=== PATIENT | female | born 1985 | race Caucasian/White ===

== ENCOUNTER 2023-04-03 13:28 | Outpatient (AMB) | payer MEDICAID, SELFPAY ==
--- NOTE | 2023-04-03 13:36 | MHC.OFFVIS ---
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 Accompanied by: Spouse Allergies aspirin Allergy (Severe, Verified 04/03/23 13:41) Hives Medication List - Last Reconciled 04/03/23 by Daniella Castillo MD albuterol sulfate 90 mcg/actuation (Ventolin HFA) 2 puffs inhalation Q4H albuterol sulfate 2.5 mg inhalation Q4H PRN amlodipine 5 mg PO DAILY azelastine 2 sprays intranasal BID enalapril maleate 20 mg PO DAILY ergocalciferol (vitamin D2) 1,250 mcg PO QWEEK fexofenadine (Allergy Relief (fexofenadine)) 0 mg PO fluticasone propion-salmeterol 230-21 mcg/actuation (Advair HFA) 2 puffs inhalation ibuprofen 600 mg PO TID lorazepam 0.5 mg PO DAILY PRN meloxicam 15 mg PO DAILY montelukast 10 mg PO DAILY HPI HPI Comments History of Present Illness Details This is a 37-year-old female who presents for evaluation of a positive RU. For the last 6-8 months patient has been having symptoms of generalized weakness, muscle pain, fatigue. She has difficulty falling in sling asleep. She mentions that she had a sleep study years ago and she was found to have restless leg syndrome. Patient is unaware of any family history of autoimmune rheumatic disease. Denies any history of DVT/PE. Denies any blood or froth in urine. No mouth ulcers. Intermittently she will get rashes on her arms in the sun. [facility] Medical History (Updated 04/03/23 @ 14:15 by Daniella Castillo MD) Abnormal TSH RU positive Asthma Fatigue Generalized muscle ache Hypertension Pain in joint, multiple sites Surgical History No history of previous surgery Family History Mother Arthritis Father Arthritis Other Medical history unknown Social History Household Members: Spouse and Children Alcohol intake: former Patient Tobacco Use Status: Never used Tobacco Current occupational status: employed Current occupation: Teacher at [employer] Female Reproductive History Menstrual Total pregnancies: 2 Full term: 2 Review of Systems Const Reports fatigue, Reports weakness and Reports weight gain ENT Reports dry mouth Resp Reports cough and Reports wheezing Reports vaginal dryness Musc Reports arthralgias and Reports muscle weakness Skin/Breast Reports alopecia, Reports rash and Reports unusual bruising Neuro Reports weakness Psych Reports abnormal sleep pattern and Reports anxiety Endo Reports fatigue and Reports polydipsia Aller/Immun Reports wheezing Physical Exam Vital Signs: Last Vital Signs Temp 97.4 F 04/03/23 13:37 Pulse 95 04/03/23 13:37 BP 150/104 H 04/03/23 13:37 Pulse Ox 100 04/03/23 13:37 Oxygen Delivery Method Room Air 04/03/23 13:37 BMI result Body Mass Index 27.5 Const General: cooperative, healthy appearing and comfortable Nutritional Appearance: overweight Orientation/consciousness: patient oriented x3 Limitations: no limitations HEENT Head: Yes normocephalic and Yes atraumatic Mouth: moist mucous membranes Resp Effort & Inspection: normal respiratory effort and able to speak in complete sentences Auscultation: clear to auscultation bilaterally Cardio Rate: regular rate Rhythm: regular rhythm Skin General skin exam: no rashes or lesions noted Neuro General: patient oriented x3 Extrem Other: No active synovitis. Diffuse fibromyalgia tender points Normal nailfold capillaroscopy Results Reviewed Results Reviewed: Labs 01/08 RU 1-80 dense fine speckled 1-40 cytoplasmic Assessment & Plan Assessment & Plan (1) RU positive: Code(s): R76.8 - Other specified abnormal immunological findings in serum Plan: This is a 37-year-old female who presents for evaluation of diffuse muscle pain, fatigue. Labs showed a positive RU. Patient has no symptoms suggestive of an autoimmune rheumatic disease upon my evaluation today. Clinical picture consistent with fibromyalgia (2) Fibromyalgia, primary: Code(s): M79.7 - Fibromyalgia Plan: ?Discussed management of fibromyalgia with patient. Is a noninflammatory, non-autoimmune central afferent processing disorder leading to a diffuse pain syndrome.? I suggested that patient try to address her underlying psychiatric issues, anxiety/depression/OCD.? I suggested evaluation by a therapist and/or a psychiatrist.? Consider a referral to a sleep study from her PCP.? Try to follow sleep hygiene practices.? ? Patient would benefit from increased physical activity. Patient goes to the gym and walks on the treadmill twice a week. Advised adding other forms of low-impact exercise such as swimming, aquatherapy, stretching, yoga. Patient states that she does not believe she has time to see a psychotherapist and believes that it will be very long before she can see a psychiatrist. She would like to try a medication for fibromyalgia. Start duloxetine 30 mg nightly and then 60 mg nightly. Follow-up in 3 months Medications: New duloxetine (Cymbalta) Take 1 capsule nightly for 1 week then 2 capsules nightly 60 caps 2RF Coding Level of Care Code New Pt Level 3 (03496) Diagnoses RU positive R76.8 Fibromyalgia, primary M79.7
[2023-04-03 13:37] VITALS: BP 150/104; PULSE 95; TEMP 36.3; O2SAT 100; BMI 27.5
== END 2023-04-03 14:13 | disposition home or self-care (01) ==
PROVIDERS: PCP Internal Medicine; Visit Provider Student in an Organized Health Care Education/Training Program
DX: R76.8 Other specified abnormal immunological findings in serum (principal); M79.7 Fibromyalgia
CPT/HCPCS: 99203

== ENCOUNTER → 2023-04-03 13:28 | Outpatient (BNVA) | payer MEDICAID, SELFPAY | PROVIDERS: PCP Internal Medicine; Visit Provider Student in an Organized Health Care Education/Training Program | DX: R76.8 Other specified abnormal immunological findings in serum (principal); M79.7 Fibromyalgia | CPT/HCPCS: 99202 ==

== ENCOUNTER 2023-08-14 15:44 | Outpatient (AMB) | payer MEDICAID, SELFPAY ==
--- NOTE | 2023-08-14 15:44 | MHC.OFFVIS ---
Intake Vital Signs 08/14/23 15:50 Height 5 ft 3 in Weight 154 lb 15.759 oz BMI 27.5 BP 130/82 Blood Pressure Location Rt brachial Position Sitting Pulse 84 Pulse Source Pulse Oximeter Temp 97 F Temp Source Skin Pulse Oximetry (%) 99 Oxygen Delivery Method Room Air Intake Visit Reasons: FMS Intake Note: Pt last seen 04/03/23 presents today for follow up. Requesting cymbalta refill. Allergies aspirin Allergy (Severe, Verified 08/14/23 15:51) Hives Medication List - Last Reconciled 08/14/23 by Daniella Castillo MD albuterol sulfate 90 mcg/actuation (Ventolin HFA) 2 puffs inhalation Q4H albuterol sulfate 2.5 mg inhalation Q4H PRN amlodipine 5 mg PO DAILY azelastine 2 sprays intranasal BID duloxetine (Cymbalta) 30 mg PO DAILY enalapril maleate 20 mg PO DAILY ergocalciferol (vitamin D2) 1,250 mcg PO QWEEK fexofenadine (Allergy Relief (fexofenadine)) 0 mg PO fluticasone propion-salmeterol 230-21 mcg/actuation (Advair HFA) 2 puffs inhalation gabapentin 300 mg PO BEDTIME ibuprofen 600 mg PO TID lorazepam 0.5 mg PO DAILY PRN meloxicam 15 mg PO DAILY montelukast 10 mg PO DAILY HPI HPI Comments History of Present Illness Details 37-year-old female with fibromyalgia returns for follow-up. She started taking duloxetine. She states that she takes it in the morning as it causes anxiety when she takes it at night. She takes 1 tab daily. She was evaluated by her PCP and gabapentin was added bedtime. She does not know the exact dose. She states that generalized pain is about 80% better overall. Initial history: This is a 37-year-old female who presents for evaluation of a positive RU. For the last 6-8 months patient has been having symptoms of generalized weakness, muscle pain, fatigue. She has difficulty falling in sling asleep. She mentions that she had a sleep study years ago and she was found to have restless leg syndrome. Patient is unaware of any family history of autoimmune rheumatic disease. Denies any history of DVT/PE. Denies any blood or froth in urine. No mouth ulcers. Intermittently she will get rashes on her arms in the sun. 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 of Systems Const Reports fatigue and Reports weakness Musc Reports arthralgias and Reports muscle weakness Neuro Reports weakness Endo Reports fatigue Physical Exam Const General: cooperative, healthy appearing and comfortable Nutritional Appearance: overweight Orientation/consciousness: patient oriented x3 Limitations: no limitations HEENT Head: Yes normocephalic and Yes atraumatic Resp Effort & Inspection: normal respiratory effort and able to speak in complete sentences Auscultation: clear to auscultation bilaterally Cardio Rate: regular rate Rhythm: regular rhythm Skin General skin exam: no rashes or lesions noted Neuro General: patient oriented x3 Extrem Other: No active synovitis. Diffuse fibromyalgia tender points Normal nailfold capillaroscopy Results Reviewed Results Reviewed: Labs 01/08 RU 1-80 dense fine speckled 1-40 cytoplasmic Assessment & Plan Assessment & Plan (1) Fibromyalgia, primary: Code(s): M79.7 - Fibromyalgia Plan: Fibromyalgia better controlled on duloxetine 30 mg daily and gabapentin nightly. I explained to patient that she does not need to follow-up regularly with me. Follow-up with PCP Plan I spent 15 minutes reviewing patient's chart, evaluating patient, counseling patient and documenting in the chart Medications: Changed From duloxetine (Cymbalta) Take 1 capsule nightly for 1 week then 2 capsules nightly 60 caps 2RF To duloxetine (Cymbalta) 30 mg PO DAILY Coding Level of Care Code Est Pt Level 3 (81625) Diagnoses Fibromyalgia, primary M79.7
[2023-08-14 15:50] VITALS: BP 130/82; PULSE 84; TEMP 36.1; O2SAT 99; BMI 27.5
== END 2023-08-14 15:55 | disposition home or self-care (01) ==
PROVIDERS: PCP Internal Medicine; Visit Provider Student in an Organized Health Care Education/Training Program
DX: M79.7 Fibromyalgia (principal)
CPT/HCPCS: 99213

== ENCOUNTER → 2023-08-14 15:44 | Outpatient (BNVA) | payer MEDICAID, SELFPAY | PROVIDERS: PCP Internal Medicine; Visit Provider Student in an Organized Health Care Education/Training Program ==

== ENCOUNTER 2023-09-19 14:52 | Outpatient (REF) | payer MEDICAID, SELFPAY ==
[2023-09-19 18:12] LABS: Anion Gap 12 (12-20); Blood Urea Nitrogen 13 mg/dL (9-16); Calcium 9.9 mg/dL (8.4-10.2); Carbon Dioxide 31 mmol/L (22-29); Chloride 95 mmol/L (96-108); Estimated Glomerular Filt Rate > 60; Glucose Random 99 mg/dL (60-115); Sodium 136 mmol/L (135-145)
[2023-09-19 19:49] LABS: Potassium 2.4 mmol/L (3.3-5.1)
== END 2023-09-19 14:53 | disposition home or self-care (01) ==
LOC: HO.CHCLDS 14:52
PROVIDERS: Visit Provider Internal Medicine
DX: I10 Essential (primary) hypertension (principal)
CPT/HCPCS: 36415; 80048

== ENCOUNTER 2023-09-24 08:02 | Outpatient (REF) | payer MEDICAID, SELFPAY ==
[2023-09-24 11:55] LABS: Anion Gap 13 (12-20); Blood Urea Nitrogen 15 mg/dL (9-16); Calcium 9.5 mg/dL (8.4-10.2); Carbon Dioxide 28 mmol/L (22-29); Chloride 102 mmol/L (96-108); Estimated Glomerular Filt Rate > 60; Glucose Random 150 mg/dL (60-115); Potassium 3.8 mmol/L (3.3-5.1); Sodium 139 mmol/L (135-145)
== END 2023-09-24 08:03 | disposition home or self-care (01) ==
LOC: HO.HHCL 08:02
PROVIDERS: Visit Provider Internal Medicine
DX: E87.6 Hypokalemia (principal)
CPT/HCPCS: 36415; 80048

== ENCOUNTER 2023-12-10 16:08 | Outpatient (REF) | payer MEDICAID, SELFPAY ==
[2023-12-16 08:38] LABS: Creatinine Random Urine 126 mg/dL (20-275); Metanephrine, Free Rand Ur 81 mcg/g cr (32-134); Normetanephrine, Free Rand Ur 294 mcg/g cr (67-390); Total Metanephrine, Free RU 375 mcg/g cr (94-445)
[2023-12-18 16:19] LABS: Aldosterone/Renin Ratio 1.3 Ratio (0.9-28.9); Plasma Renin Activity 6.32 ng/mL/h (0.25-5.82)
== END 2023-12-10 16:09 | disposition home or self-care (01) ==
LOC: HO.CHCLDS 16:08
PROVIDERS: Visit Provider Internal Medicine
DX: I1A.0 Resistant hypertension (principal)
CPT/HCPCS: 36415; 82088; 83835

== ENCOUNTER 2024-08-17 11:44 | Outpatient (REF) | payer MEDICAID, SELFPAY ==
--- NOTE | ~2024-08-17 | XR_ITS ---
EXAMINATION: XR CHEST CLINICAL INFORMATION: Cough x 3 weeks. COMPARISON: None available. TECHNIQUE: 2 views of the chest were obtained. FINDINGS: No significant abnormality is noted involving the heart, lungs, mediastinum, bony thorax or soft tissues. XR/XR chest 2V IMPRESSION: Unremarkable chest examination. Electronically signed by: Darien Bee MD 08/17/2024 12:17 PM [facility]
== END 2024-08-17 11:45 | disposition home or self-care (01) ==
LOC: HO.HHCX 11:44
PROVIDERS: Visit Provider Internal Medicine
DX: R06.02 Shortness of breath (principal); J45.901 Unspecified asthma with (acute) exacerbation
CPT/HCPCS: 71046

== ENCOUNTER → 2024-08-17 11:44 | Outpatient (BNV) | payer MEDICAID, SELFPAY | PROVIDERS: Visit Provider Radiology Diagnostic Radiology | DX: R05.9 Cough, unspecified (principal) | CPT/HCPCS: 71046 ==

== ENCOUNTER 2024-10-06 09:57 | Outpatient (REF) | payer MEDICAID, SELFPAY ==
--- OUTSIDE RECORDS SUMMARY | 2024-10-06 10:44 | XMS_ITS | Encounter Summary ---
Author Organization [employer] Address [address] [place] [address] Care Team Providers Care Experimental Pl[employer] Fabricator Name Role Phone Irene Grubbs MD Primary Care Provider [phone] Reason for Visit * Reason Onset Date Comments Med Refill 05/29/2024 Encounter Details Date Type Department Care Team (Late st Contact Info) Description 05/29/2024 Telephone [facility] [address] [place] [address] Irene Grubbs MD [address] [place] [address] Med Refill Social History Tobacco Use Types Packs/Day Years Used Date Smoking Tobacco: Never Smokeless Tobacco: Never Depression Answer Date Recorded Patient Health Questionnaire-9 Score 10 05/28/2024 Patient Health Questionnaire-9 Score 10 05/28/2024 Last PHQ-9: Questionnaire Data Not on file 1 Housing Stability Answer Date Recorded What is your housing situation today? I have cristi obrien 06/06/[address] you li ve. Do you have problems with any of the following? None of the above 06/06/2023 Food Insecurity Answer Date Recorded Within the past 12 months, y ou worried that your food would run out before you got money to buy more: Never True 06/06/2023 Within the past 12 months,th e food you bought just didn't last and you didn't have enough money to get more: Never True Transportation Answer Date Recorded In the past 12 months, has l ack of transportation kept you from medical appts, meetings, work or from getting things needed for daily living? No 06/06/2023 Utilities Answer Date Recorded In the past 12 months, has t he electric, gas, oil or water company threatened to shut off services in your home? No 06/06/2023 Depression Answer Date Recorded Patient Health Questionnaire-2 Score 4 05/28/2024 Comments Unknown Sex and Gender Information Value Date Recorded Sex Assigned at Female 06/18/2022 10:23 AM EDT Legal Sex Female 10:23 AM EDT Gender Identity Female 06/18/2022 10:23 AM EDT Sexual Orientation Straight 06/18/2022 10 :23 AM EDT documented as of this encounter Miscellaneous Notes * Telephone Encounter - Angel Campos - 05/29/2024 10:25 AM EDT TC from pt requesting medication refill. Medications needing refill : LORazepam (Ativan) 0.5 MG tablet To be sent to: [facility] Pt needs meds sent belle . States will run out this weekend and pharmacy requesting a new script documented in this encounter Plan of Treatment Upcoming Encounters Date Type Department Care Team (Late st Contact Info) Description 10/07/2024 10:00 AM EST Office Visit [facility] OPTOM[facility] [address] [place] [address] Philip, Destiny, OD [address] [place] [address] documented as of this encounter Visit Diagnoses Not on filedocumented in this encounter Additional Health Concerns Assessment Noted Time PHQ-9 Depression Total Score: 10 024 3:48 PM EDT documented as of this encounter Care Teams [employer] Fab[employer]ator Relationship Specialty Start Date End Date Irene Grubbs MD [address] [place] [address] PCP - General Internal Medicine 07/02/19 documented as of this encounter
--- OUTSIDE RECORDS SUMMARY | 2024-10-06 10:44 | XMS_ITS | Clinical Summary ---
Author Organization [employer] Address [address] [facility] [address] [place] [address] Care Team Providers Care Hosting Engineer Name Role Phone Irene Grubbs MD Primary Care Provider [phone] Allergies Active Allergy Reactions Criticality Noted Date Comments Aspirin 12/09/2020 Sulfamethoxazole Unknown 07/30/2022 Trimethoprim Unknown 07/30/2022 Medications * This document contains information received from the source organization and may not represent a complete record from that organization. fluticasone-salm eterol (Advair) 230-21 MCG/ACT inhalerIndicatio ns:Moderate persistent asthma without complication Inhale 2 puffs in the morning and at bedtime. Rinse mouth with water after use to reduce aftertaste and incidence of candidiasis. Do not swallow. 12 g 11 023 Active valACYclovir (Valtrex) 500 MG tablet 022 Active chlorthalidone (Hygroton) 25 MG tabletIndication s:Primary hypertension Take 1 tablet (25 mg) by mouth in the morning. 30 tablet 024 Active Mometasone Furoate (Asmanex HFA) 200 MCG/ACT aerosol Inhale 2 puffs every 12 (twelve) hours. 13 g 3 024 Active atenolol (Tenormin) 50 MG tabletIndication s:Primary hypertension Take 1 tablet (50 mg) by mouth Once per day. 30 tablet 024 2024 Active verapamil SR (Calan SR) 240 MG ER tabletIndication s:Primary hypertension,Gypsy marilia hypertension Take 1 tablet (240 mg) by mouth at bedtime. Do not crush or chew. 30 tablet 11 024 2024 Active guaiFENesin (Mucinex) 600 MG 12 hr tabletIndication s:Nasal congestion Take 2 tablets (1,200 mg) by mouth 2 times daily. Do not crush, chew, or split. 120 tablet 11 024 2024 Active cholecalciferol (Vitamin D-3) 50 MCG (2000 UT) capsuleIndicatio ns:Low vitamin D level 1 capsule a day 30 capsule 11 Active fexofenadine (Allergy Relief) 180 MG tabletIndication s:Seasonal allergies TAKE 1 TABLET(180 MG) BY MOUTH IN THE MORNING 30 tablet 5 Active cyclobenzaprine (Flexeril) 10 MG tabletIndication s:Fibromyalgia Take 1 tablet (10 mg) by mouth at bedtime. 30 tablet 3 2024 Active Diclofenac Sodium 1 % gelIndications:L eft lateral epicondylitis To apply to the affected area 3 times a day 100 g Active busPIRone (Buspar) 5 MG tabletIndication s:Anxiety Take 1 tablet (5 mg) by mouth 2 times daily. 60 tablet 11 2024 Active azithromycin (Zithromax) 250 MG tabletIndication s:Asthma with acute exacerbation, unspecified asthma severity, unspecified whether persistent Day 1: 500 mg. Day 2-5: 250 mg 6 tablet Active albuterol (2.5 MG/3ML) 0.083% nebulizer solutionIndicati ons:Shortness of breath,Asthma with acute exacerbation, unspecified asthma severity, unspecified whether persistent,Other asthma Take 3 mL by nebulization every 4 (four) hours if needed for wheezing. 75 mL 2 Active fluconazole (Diflucan) 150 MG tablet TAKE 1 TABLET(150 MG) BY MOUTH 1 TIME FOR 1 DOSE 1 tablet Active EPINEPHrine (Epipen) 0.3 MG/0.3ML injection syringeIndicatio ns:Seasonal allergies INJECT 1 DEVICE INTO THE MUSCLE DIRECTED 1 TIME FOR 1 DOSE 2 each Active Ventolin HFA 108 (90 Base) MCG/ACT inhalerIndicatio ns:Other asthma INHALE 2 PUFFS BY MOUTH 4-6 TIMES EVERY DAY NEEDED 18 g 11 025 Active montelukast (Singulair) 10 MG tablet TAKE 1 TABLET BY MOUTH DAILY 90 tablet 3 025 Active LORazepam (Ativan) 0.5 MG tabletIndication s:Anxiety Take 1 tablet (0.5 mg) by mouth if needed each day for anxiety. 30 tablet 025 2024 Active LORazepam (Ativan) 0.5 MG tabletIndication s:Anxiety Take 1 tablet (0.5 mg) by mouth if needed each day for anxiety. 30 tablet 024 2024 Discontinued(R eorder (will not trigger notification to Pharmacy)) Active Problems Problem Noted Date Diagnosed Date Synovitis and tenosynovitis of left ankle and fo ot 09/28/2024 Moderate episode of recurrent major depressive d isorder 05/28/2024 Caregiver role strain 03/10/2024 Chronic pelvic pain in female 03/10/2024 Palpitations 03/10/2024 Renal stone 03/10/2024 Restless legs 03/10/2024 Subclinical hyperthyroidism 03/05/2023 Anxiety 10/22/2022 Assessment & Plan (01/06/2024 5:35 PM EDT): Despite social stressors, she is doing well and will continue Cymbalta 20 mg daily, Gabapentin 100 mg at bedtime. May continue Lorazepam 0.5 mg once daily as needed. Since this provider will be retiring, patient is now referred back to her PCP for further medication management. Any issues or concerns, call the health center. All her questions were answered and I have wished her well. She agrees with the plan. Assessment & Plan (11/07/2023 4:32 PM EDT): She is doing well and will continue Cymbalta 20 mg daily, Gabapentin 100 mg at bedtime. May continue Lorazepam 0.5 mg once daily as needed. On 08/22/2023 provider informed the patient that I would be retiring, but we would plan for continuity of care. Meanwhile F/U with me in 2 months. She agrees with the plan. Assessment & Plan (08/22/2023 5:21 PM EST): She is doing well and will continue Cymbalta 20 mg daily, Gabapentin 100 mg at bedtime. May continue Lorazepam 0.5 mg once daily as needed. Today 08/22/2023 provider informed the patient that I would be retiring, but we would plan for continuity of care. Meanwhile F/U with me in 2 months. She agrees with the plan. Assessment & Plan (06/18/2023 1:29 PM EDT): She is very sensitive to sedating S/E of medication. Willing to try again with Cymbalta 20 mg daily. Recently diagnosed with fibromyalgia and started Gabapentin 100 mg at bedtime. May continue Lorazepam 0.5 mg once daily as needed. F/U 6-8 weeks. She agrees with the plan. Assessment & Plan (04/29/2023 12:07 PM EDT): May continue Lorazepam 0.5 mg once daily as needed. Recently diagnosed with fibromyalgia and started Gabapentin 100 mg at bedtime. Will not add anything else at this time. F/U 6-8 weeks. She agrees with the plan. Assessment & Plan (10/22/2022 5:27 PM EST): May continue Lorazepam 0.5 mg once daily as needed Perimenopausal symptoms 10/22/2022 Assessment & Plan (10/22/2022 5:29 PM EST): With mood changes including increased anxiety and Irritability as well as vasomotor symptoms. Will start Venlafaxine XR 37.5 mg once daily taken with food to minimize GI upset. Explained that she would not notice improvement immediately, so be patient and take daily. F/U 4-6 weeks. She agrees with the plan. Hypertensive disorder 07/30/2022 Asthma 07/30/2022 Allergic conjunctivitis 07/30/2022 Acute COVID-19 08/14/2021 Resolved Problems Problem Noted Date Diagnosed Date Resolved Date Mixed anxiety and depressive disorder 07/30/2022 10/22/2022 Assessment & Plan (05/13/2024 1:02 PM EDT): No suicidal/homicidal ideas, will start on fluoxetine, she was previosuly on duloxetine but she stopped taking it due to weight gain, fluoxetine has less weight gain effects, will follow up in 1 month, will also refer to therapist Encounters Date Type Department Care Team Description 09/28/2024 3:45 PM EST Office Visit [facility] [address] [place] [address] Irene Grubbs MD Enlarged thyroid (Primary Dx); Congested nose; Sore throat; Synovitis and tenosynovitis of left ankle and foot 09/28/2024 Travel 09/24/2024 Telephone [facility] [address] [place] [address] Irene Grubbs MD chart prep 09/15/2024 Telephone [facility] [address] [place] [address] Irene Grubbs MD Med Refill 09/03/2024 Refill [facility] [address] [place] [address] Irene Grubbs MD Fibromyalgia; Anxiety 09/01/2024 Refill [facility] [address] [place] [address] Jorje Farooqe, CLIENT SALES AND SERVICE OFFICER 09/01/2024 Refill [facility] [address] [place] [phone] Irene Grubbs MD Seasonal allergies; Other asthma 08/24/2024 Telephone [facility] [address] [place] [address] Irene Grubbs MD 08/17/2024 1:20 PM EST Office Visit [facility] [address] [place] [phone] Irene Grubbs MD Shortness of breath; Asthma with acute exacerbation, unspecified asthma severity, unspecified whether persistent; Other asthma 08/17/2024 Telephone [facility] [address] [place] [address] Irene Grubbs MD recall appt (Pt needs appt) from Last 3 Months Immunizations Name Administration Dates Next Due Pfizer Covid-19 Vaccine 12+ 06/23/2021, Tdap 02/01/2024,10/31/2012 Social History Tobacco Use Types Packs/Day Years Used Date Smoking Tobacco: Never Smokeless Tobacco: Never Tobacco Cessation:Counseling Given: Not Answered Depression Answer Date Recorded Patient Health Questionnaire-9 [...] Orientation Straight 06/18/2022 10 :23 AM EDT Last Filed Vital Signs Vital Sign Reading Time Taken Comments Blood Pressure 137/86 09/28/2024 4:09 PM EST Pulse 69 09/28/2024 4:09 PM EST Temperature 36.8 ??C (98.3 ??F) 09/28/2024 4:09 PM ES T Respiratory Rate 20 09/28/2024 4:09 PM EST Oxygen Saturation 97% 09/28/2024 4:09 PM EST Inhaled Oxygen Concentration - - Weight 70.3 kg (155 lb) 09/28/2024 4:09 PM EST Height 161 cm (5' 3.39 ) 09/28/2024 4:09 PM EST Body Mass Index 27.12 09/28/2024 4:09 PM EST Plan of Treatment Upcoming Encounters Date Type Department Care Team (Late st Contact Info) Description 10/07/2024 10:00 AM EST Office Visit [facility] [address] [place], [place] [phone] Philip, Destiny, OD [address] [place] [address] Health Maintenance Due Date Last Done Comments Family Planning (PISQ) 2000 Hepatitis C Screening 2003 Hepatitis B Vaccines (1 of 3 - 19+ 3-dose series) 2004 Pneumococcal Vaccine: Pediatrics (0 to 5 Years) and At-Risk Patients (6 to 49) Years) (1 of 2 - PCV) 2004 Pap Smear 2006 Cervical Cancer Screening 2015 HPV/Cotest 2015 COVID-19 Vaccine ( - 2023-2 5 season) 2024 06/23/2021, 06/02/2021 Influenza Vaccine (#1) 2024 Depression Monitoring (PHQ-9) 11/26/2024, 05/28/2024 SDOH Screening 12/22/2024 12/23/2023 Lipid Panel 04/20/2025 04/20/2020 Depression Screening 05/28/2025 05/28/2024, 05/28/2024 Alcohol/Substance Use Screening 06/10/2025 06/10/2024 Tobacco Screening 09/28/2025 09/28/2024 DTaP/Tdap/Td Vaccines (3 - T d or Tdap) 01/31/2034 02/01/2024, 10/31/2012 Zoster Vaccines (1 of 2) 2035 RSV Patients and Patients Aged 60 years or older (1 - 1-dose 75+ series) 2060 HIV Screening Completed 02/08/2021 HIB Vaccines Aged Out No longer eligi ble based on patient's age to complete this topic HPV Vaccines Aged Out No longer eligi ble based on patient's age to complete this topic Hepatitis A Vaccines Aged Out No long er eligible based on patient's age to complete this topic IPV Vaccines Aged Out No longer eligi ble based on patient's age to complete this topic Meningococcal Vaccine Aged Out No jammie olivia eligible based on patient's age to complete this topic RSV under 20 months Aged Out No longe r eligible based on patient's age to complete this topic Rotavirus Vaccines Aged Out No longer eligible based on patient's age to complete this topic Procedures Procedure Name Priority Date/Time Associated Diagnosis Comments POCT RAPID STREP A Routine 09/28/2024 4: 40 PM EST Sore throat POCT INFLUENZA A Routine 09/28/2024 4:40 PM EST Congested nose POCT INFLUENZA B Routine 09/28/2024 4:39 PM EST Congested nose POCT RAPID COVID ANTIGEN Routine 09/28/2024 4:38 PM EST Congested nose XR CHEST 2 VIEWS Routine 08/17/2024 11:4 4 AM EST Shortness of breath Asthma with acute exacerbation, unspecified asthma severity, unspecified whether persistent POCT RAPID COVID ANTIGEN Routine 08/17/2024 11:40 AM EST Shortness of breath POCT INFLUENZA B (ID NOW RAPID MOLECULAR) Routine 08/17/2024 11:40 AM EST Shortness of breath POCT INFLUENZA A (ID NOW RAPID MOLECULAR) Routine 08/17/2024 11:40 AM EST Shortness of breath HIV 1/2 ANTIGEN/ANTIBODY, FOURTH GENERATION W/RFL Routine 02/08/2021 11:38 AM EDT LIPID PANEL, STANDARD Routine 04/20/2020 11:23 AM EDT from Last 3 Months or Most Recently Relevant to Health Maintenance Results * POCT Rapid Influenza A OSOM (09/28/2024 4:40 PM EST) [facility] Rapid Influenza A Ag Negative Negative, Indeterminate QC Media Lot # [id number] Lot# Expiration Date Swab Nasopharyngeal structure / Unknown 09/28/2024 4:40 PM EST Irene Grubbs MD POINT OF CARE TEST ENTER/ED IT ORDERABLES Final Result * POCT Rapid Strep A OSOM (09/28/2024 4:40 PM EST) [facility] Rapid Strep A Screen Negative Negative, None Detected QC Media Lot # [id number] Lot# Expiration Date ,025 Swab 09/28/2024 4:40 PM EST Irene Grubbs MD POINT OF CARE TEST ENTER/ED IT ORDERABLES Final Result * POCT Rapid Influenza B OSOM (09/28/2024 4:39 PM EST) [facility] Rapid Influenza B Ag Negative Negative, Indeterminate QC Media Lot # [id number] Lot# Expiration Date Swab 09/28/2024 4:39 PM EST Irene Grubbs MD POINT OF CARE TEST ENTER/ED IT ORDERABLES Final Result * POCT Rapid Covid-19 BinaxNOW (09/28/2024 4:38 PM EST) Only the most recent of2 resultswithin the time period is included. [facility] Rapid COVID Ag Negative QC Media Lot # [id number] Lot# Expiration Date [id number] Swab 09/28/2024 4:38 PM EST us Irene Grubbs MD POINT OF CARE TEST ENTER/ED IT ORDERABLES Edited Result - Final * XR Chest 2 Views (08/17/2024 11:44 AM EST) Anatomical Region Laterality Modality Chest Radiographic Candice ging 08/17/2024 11:4 4 AM EST Narrative 08/17/2024 12:20 PM EST ?[facility] ?[address] ?[place] [address] ?XRay Report ? Signed ? Patient: Flynn,María Elena ?MR#: [id number] ?? [id number] ? : 1985 ?Acct:[id number] ? Age/Sex: 38 / F ?ADM Date: 08/17/24 ? Loc: HO.HHCX ? Attending Dr: Irene Grubbs MD ? Ordering Physician: Irene Grubbs MD ?? Date of Service: 08/17/24 ?? Procedure(s): XR chest 2V ?? Accession Number(s): [id number] ? cc: Irene Grubbs MD ? EXAMINATION: ?? XR CHEST ? CLINICAL INFORMATION: ?? Cough x 3 weeks. ? COMPARISON: ?? None available. ? TECHNIQUE: ?? 2 views of the chest were obtained. ? FINDINGS: ?? No significant abnormality is noted involving the heart, lungs, ?? mediastinum, bony thorax or soft tissues. ? XR/XR chest 2V ?? IMPRESSION: ?? Unremarkable chest examination. ? Electronically signed by: ??Darien Bee MD ??08/17/2024 12:17 PM EST RP ? Dictated By: ?Cristal,Darien S MD ? Signed By: ?<Electronically signed by Darien S Cristal, MD in OV> ?08/17/24 1217 ? DD/ 1144 ? TD/TT: 08/17/24 1150 ? Architectural Examiner: MSM ? Procedure Note Rodrigue, Image - 08/17/2024 [facility] [address] [facility] [address] XRay Report Signed Patient: PruettMaría Elena#: [id number] : 1985Acct:[id number] Age/Sex: 38 / FADM Date: 08/17/24 Loc: HO.HHCX Attending Dr: Irene Grubbs MD Ordering Physician: Irene Grubbs MD Date of Service: 08/17/24 Procedure(s): XR chest 2V Accession Number(s): [id number] cc: Irene Grubbs MD EXAMINATION: XR CHEST CLINICAL INFORMATION: Cough x 3 weeks. COMPARISON: None available. TECHNIQUE: 2 views of the chest were obtained. FINDINGS: No significant abnormality is noted involving the heart, lungs, mediastinum, bony thorax or soft tissues. XR/XR chest 2V IMPRESSION: Unremarkable chest examination. Electronically signed by: Darien Bee MD 08/17/2024 12:17 PM EST RP Dictated By: Darien Bee MD Signed By: <Electronically signed by Darien Bee MD in OV> 08/17/24 1217 DD/ 1144 TD/TT: 08/17/24 1150 Architectural Examiner: [facility] Irene Grubbs MD IMG XR PROCEDURES Final Res ult * Influenza B (ID NOW Rapid Molecular) (08/17/2024 11:40 AM EST) Influenza B Negative Negative, Indeterminate [facility] Swab 08/17/2024 11:4 0 AM EST us Irene Grubbs MD POINT OF CARE TEST ENTER/ED IT ORDERABLES Final Result [facility] [address] [place] [phone] * Influenza A (ID NOW Rapid Molecular) (08/17/2024 11:40 AM EST) Influenza A Negative Negative, Indeterminate [facility] Swab 08/17/2024 11:4 0 AM EST us Irene Grubbs MD POINT OF CARE TEST ENTER/ED IT ORDERABLES Final Result Performing Organization Address City/[facility] Co de Phone Number [facility] [address] [place] [address] [phone] * HIV 1/2 ANTIGEN/ANTIBODY,FOURTH GENERATION W/RFL (02/08/2021 11:38 AM EDT) HIV-1/2 ANTIGEN AND ANTIBODIES, 4TH GENERATION W/ REFLEX NON-REACT MICHELLE NON-REACT [facility] Comment: HIV-1 antigen and HIV-1/HIV-2 antibodies were not detected. There is no laboratory evidence of HIV infection. ?? PLEASE NOTE: This information has been disclosed to you from records whose confidentiality may be protected by state law. ??If your state requires such protection, then the state law prohibits you from making any further disclosure of the information without the specific written consent of the person to whom it pertains, or as otherwise permitted by law. A general authorization for the release of medical or other information is NOT sufficient for this purpose. ? For additional information please refer to http://education.[employer]./faq/SYY772 (This link is being provided for informational/ educational purposes only.) ? The performance of this assay has not been clinically validated in patients less than 2 years old. ?? 02/08/2021 11:3 8 AM EDT us Irene Grubbs MD LAB BLOOD ORDERABLES Final Result [facility] [address] * (ABNORMAL) LIPID PANEL, STANDARD (04/20/2020 11:23 AM EDT) Cholesterol, Total 139 <200 mg/dL [facility] LDL Cholesterol 74 mg/dL (calc) [facility] Comment: Reference range: <100 ?? Desirable range <100 mg/dL for primary prevention; ?? <70 mg/dL for patients with CHD or diabetic patients ?? with > or = 2 CHD risk factors. ?? LDL-C is now calculated using the Osmin-Lai ?? calculation, which is a validated novel method providing ?? better accuracy than the Friedewald equation in the ?? estimation of LDL-C. ?? Osmin BRANDON et al. AMOL. 2013;310(19): 1397-9922 ?? (http://Eversnap/faq/AVE324) HDL Cholesterol 41(L) > OR = 50 mg/dL [facility] Cholesterol, Total 139 <200 mg/dL [facility] Chol/HDLC Ratio 3.4 <5.0 (calc) [facility] Triglycerides 162(H) <150 mg/dL [facility] HDL Cholesterol 41(L) > OR = 50 mg/dL [facility] Non-HDL Cholesterol 98 <130 mg/dL (calc) [facility] Comment: For patients with diabetes plus 1 major ASCVD risk ?? factor, treating to a non-HDL-C goal of <100 mg/dL ?? (LDL-C of <70 mg/dL) is considered a therapeutic ?? option. Non-HDL Cholesterol 98 <130 mg/dL (calc) [facility] Comment: For patients with diabetes plus 1 major ASCVD risk ?? factor, treating to a non-HDL-C goal of <100 mg/dL ?? (LDL-C of <70 mg/dL) is considered a therapeutic ?? option. Triglycerides 162(H) <150 mg/dL [facility] Chol/HDLC Ratio 3.4 <5.0 (calc) [facility] LDL Cholesterol 74 mg/dL (calc) [facility] Comment: Reference range: <100 ?? Desirable range <100 mg/dL for primary prevention; ?? <70 mg/dL for patients with CHD or diabetic patients ?? with > or = 2 CHD risk factors. ?? LDL-C is now calculated using the Osmin-Lai ?? calculation, which is a validated novel method providing ?? better accuracy than the Friedewald equation in the ?? estimation of LDL-C. ?? Osmin BRANDON et al. AMOL. 2013;310(19): 0722-9051 ?? (http://Eversnap/faq/GXG587) 04/20/2020 11:2 3 AM EDT Irene Grubbs MD LAB BLOOD ORDERABLES Final Result [facility] [address] [place] [address], from Last 3 Months or Most Recently Relevant to Health Maintenance [facility] Care Teams Hosting Engineer Relationship Specialty Start Date End Date Irene Grubbs MD [address] [place] [phone] PCP - General Internal Medicine 07/02/19
--- OUTSIDE RECORDS SUMMARY | 2024-10-06 10:44 | XMS_ITS | Encounter Summary ---
Author Organization [employer] Address [address] [facility] [address] [place] [address] Care Team Providers Care River Pilot Name Role Phone Irene Grubbs MD Primary Care Provider [phone] Encounter Details Date Type Department Care Team ([facility] st Contact Info) Description 09/20/2023 Orders Only [facility] [address] [place], [place] [phone] Irene Grubbs MD [address] [place] [address] Hypokalemia (Primary Dx) Social History Tobacco Use Types Packs/Day Years Used Date Smoking Tobacco: Never Smokeless Tobacco: Never Depression Answer Date Recorded Patient Health Questionnaire-9 Score 8 08/22/2023 Patient Health Questionnaire-9 Score 8 08/22/2023 Last PHQ-9: Questionnaire Data Not on file 0 08/22/2023 Housing Stability Answer Date Recorded What is [...] Answer Date Recorded Patient Health Questionnaire-2 Score 1 08/22/2023 Comments Unknown Sex and Gender Information Value Date Recorded Sex Assigned at Female 06/18/2022 10:23 AM EDT Legal Sex Female 10:23 AM EDT Gender Identity Female 06/18/2022 10:23 AM EDT Sexual Orientation Straight 06/18/2022 10 :23 AM EDT documented as of this encounter Plan of Treatment Upcoming Encounters Date Type Department Care Team (Late st Contact Info) Description 10/07/2024 10:00 AM EST Office Visit [facility] [address] [place] [address] Philip, Destiny, OD [address] [place] [address] documented as of this encounter Procedures Procedure Name Priority Date/Time Associated Diagnosis Comments BASIC METABOLIC PANEL Routine 09/24/2023 8:03 AM EST Hypokalemia documented in this encounter Results * (ABNORMAL) Basic Metabolic Panel (09/24/2023 8:03 AM EST) Sodium 139 135 - 145 mmol/L [facility] Potassium 3.8 3.3 - 5.1 mmol/L [facility] Chloride 102 96 - 108 mmol/L [facility] Carbon Dioxide 28 22 - 29 mmol/L [facility] Anion Gap 13 12 - 20 [facility] Urea Nitrogen (BUN) 15 9 - 16 mg/dL [facility] Creatinine, Serum 0.73 0.5 - 1.4 mg/dL [facility] Estimated Glomerular Filt Rate >60 [facility] Comment:NOTE: For -Am erican individuals, multiply the result by 1.210.Chronic Kidney Disease: Estimated GFR < 60 mL/min/[id number] Kidney Disease: Estimated GFR < 15 mL/min/1.73m2 Glucose 150(H) 60 - 115 mg/dL [facility] Calcium 9.5 8.4 - 10.2 mg/dL [facility] Blood Venous blood specimen / Unknown 09/24/2023 8:03 AM EST 09/24/2023 11:12 AM EST Irene Grubbs MD LAB BLOOD ORDERABLES Final Result [facility] [address] [place] [address] [phone] documented in this encounter Visit Diagnoses Diagnosis Hypokalemia- Primary Hypopotassemia documented in this encounter Additional Health Concerns Assessment Noted Time PHQ-9 Depression Total Score: 8 08/22/19 24 4:08 PM EST documented as of this encounter Care Teams River Pilot Relationship Specialty Start Date End Date Irene Grubbs MD [address] [place] [phone] PCP - General Internal Medicine 07/02/19 documented as of this encounter
--- OUTSIDE RECORDS SUMMARY | 2024-10-06 10:44 | XMS_ITS | Encounter Summary ---
Author Organization [employer] Address [address] [facility] 7 [place] [address] Care Team Providers Care Passenger Car Inspector Name Role Phone Irene Grubbs MD Primary Care Provider [phone]- [phone] Reason for Visit * Reason Comments Med Refill Encounter Details Date Type Department Care Team ([facility] st Contact Info) Description 01/22/2024 Refill [facility] MED & PEDS [address] [place] [address] Irene Grubbs MD [address] [place] [address] Other asthma Social History Tobacco Use Types Packs/Day Years Used Date Smoking Tobacco: Never Smokeless Tobacco: Never Depression Answer Date Recorded Patient Health Questionnaire-9 Score 9 01/06/2024 Patient Health Questionnaire-9 Score 9 01/06/2024 Last PHQ-9: Questionnaire Data Not on file 0 01/06/2024 Housing Stability Answer Date Recorded What is [...] Answer Date Recorded Patient Health Questionnaire-2 Score 0 01/06/2024 Comments Unknown Sex and Gender Information Value [...] Description 10/07/2024 10:00 AM EST Office Visit [facility] OPTOMETRY [address] [place] [address] Philip, Destiny, OD [address] [place] [address] documented as of this encounter Visit Diagnoses Diagnosis Other asthma documented in this encounter Additional Health Concerns Assessment Noted Time PHQ-9 Depression Total Score: 9 01/06/20 24 4:06 PM EDT documented as of this encounter Care Teams Passenger Car Inspector Relationship Specialty Start Date End Date Irnee Grubbs MD [address] [place] [address] PCP - General Internal Medicine 07/02/19 documented as of this encounter
--- OUTSIDE RECORDS SUMMARY | 2024-10-06 10:44 | XMS_ITS | Encounter Summary ---
Author Organization [employer] [facility] Address [address] [place] [address] [address] [address] Care Team Providers Care Supervisor Bridges And Buildings Name Role Phone Irene Grubbs MD Primary Care Provider [phone]- [phone] Reason for Referral * Consultation (Routine) - Authorized Specialty Diagnoses / Procedures Referred By Rosalia landers Referred To Contact Endocrinology Diagnoses High serum renin Irene Grubbs MD [address] [place] [address] Phone: tel: fax: Jose Acuna, DO [address] [place] [address] Phone: tel: fax: Referral ID Status Reason Start Date Expiration Date Visits Requested Visits Authorized [id number] Authorized Specialty Services Required 12/19/2023 12/18/2024 1 1 Encounter Details Date Type Department Care Team (Late st Contact Info) Description 12/19/2023 Orders Only [facility] CHC MED & PEDS [address] [place], [place] [phone] Irene Grubbs MD [address] [place] [phone] High serum renin (Primary Dx) Social History Tobacco Use Types Packs/Day Years Used Date Smoking Tobacco: Never Smokeless Tobacco: Never Depression Answer Date Recorded Patient Health Questionnaire-9 Score 7 11/07/2023 Patient Health Questionnaire-9 Score 7 11/07/2023 Last PHQ-9: Questionnaire Data Not on file 0 11/07/2023 Housing Stability Answer Date Recorded What is [...] Answer Date Recorded Patient Health Questionnaire-2 Score 2 11/07/2023 Comments Unknown Sex and Gender Information Value [...] Description 10/07/2024 10:00 AM EST Office Visit [facility] OPTOMETRY [address] [place] [address] Philip, Destiny, OD [address] [place] [address] Scheduled Referrals Name Type Priority Associated Diagnoses Order Schedule Referral to Endocrinology Outpatient Referral Routine High serum renin Expected: 12/19/2023 (Approximate), Expires: 12/18/2024 documented as of this encounter Visit Diagnoses Diagnosis High serum renin- Primary documented in this encounter Additional Health Concerns Assessment Noted Time PHQ-9 Depression Total Score: 7 11/07/19 24 3:57 PM EDT documented as of this encounter Care Teams Supervisor Bridges And Buildings Relationship Specialty Start Date End Date Beauzile, Thevenin, MD [address] [place] [address] PCP - General Internal Medicine 07/02/19 documented as of this encounter
--- OUTSIDE RECORDS SUMMARY | 2024-10-06 10:44 | XMS_ITS | Encounter Summary ---
Author Organization [employer] Address [address] [facility] 7 [place] [address] Care Team Providers Care Decorating And Assembly Supervisor Name Role Phone Irene Grubbs MD Primary Care Provider [phone]- [phone] Reason for Visit * Reason Onset Date Comments Medication Question 03/10/2024 Encounter Details Date Type Department Care Team (Late st Contact Info) Description 03/10/2024 Telephone [facility] [address] [place] [address] Irene Grubbs MD [address] [place] [address] Medication Question Social History Tobacco Use Types Packs/Day Years [...] encounter Miscellaneous Notes * Telephone Encounter - Jazmyne Martinez RN - 03/10/2024 4:12 PM EDT T/C to pt. To collect For further information for below message, No answer. LVM to call back on [phone]. * Telephone Encounter - Nathaniel Reed - 03/10/2024 12:45 PM EDT Tc from pt requesting a call from a nurse to see if pcp could prescribe Flexeril instead of currentmed due to current med not working documented in this encounter Plan of Treatment Upcoming Encounters Date Type Department Care Team (Late st Contact Info) Description 10/07/2024 10:00 AM EST Office Visit [facility] OPTOMETRY [address] [place] [address] Destiny Palacios, OD 230 [facility] [place] [address] documented as of this encounter Visit Diagnoses Not on filedocumented in this encounter Additional Health Concerns Assessment Noted Time PHQ-9 Depression Total Score: 9 01/06/20 24 4:06 PM EDT documented as of this encounter Care Teams Decorating And Assembly Supervisor Relationship Specialty Start Date End Date Irene Grubbs MD [address] [place] [address] PCP - General Internal Medicine 07/02/19 documented as of this encounter
--- OUTSIDE RECORDS SUMMARY | 2024-10-06 10:44 | XMS_ITS | Clinical Summary ---
Author Organization [facility] Address [address] [address] Phone Care Team Providers Care Laboratory Technical Specialist Name Role Phone Irene Grubbs MD Primary Care Provider Allergies Active Allergy Reactions Criticality Noted Date Comments Aspirin 12/09/2020 Hives Alitraq 03/10/2024 Flavoring Agent (Non-Screening) 02/17 Mushroom Extract Complex (Obsolete) 03/10/2024 Sesame Oil 03/10/2024 Soybean-Containing Drug Products Sulfamethoxazole Other (see comments) Trimethoprim Other (see comments) 07/30/2022 Medications albuterol HFA (PROVENTIL HFA;VENTOLIN HFA) 108 (90 Base) MCG/ACT inhaler Inhale 2 puffs every 6 (six) hours if needed for wheezing Active EPINEPHrine (ADRENALIN) 0.1 % nasal solution Administer 0.5 mL into each nostril if needed Active LORazepam (ATIVAN) 0.5 MG tablet Take 0.5 mg by mouth every 8 (eight) hours if needed for anxiety Active atenolol (TENORMIN) 25 MG tablet Take 50 mg by mouth 1 (one) time each day Active gabapentin (NEURONTIN) 100 MG capsule Take 100 mg by mouth in the morning and 100 mg in the evening and 100 mg before bedtime. Active DULoxetine (CYMBALTA) [address] capsule Take 20 mg by mouth 1 (one) time each day Do not crush or chew. Active chlorthalidone 25 MG tablet Take 25 mg by mouth 1 (one) time each day Active Active Problems Problem Noted Date Diagnosed Date Restless legs 03/10/2024 Renal stone 03/10/2024 Palpitations 03/10/2024 Caregiver role strain 03/10/2024 Chronic pelvic pain of female 03/10/2024 Essential (primary) hypertension 02/14/2024 Subclinical hyperthyroidism 03/05/2023 Anxiety 10/22/2022 Overview (03/10/2024): Last Assessment & Plan: Despite social stressors, she is doing well [...] her well. She agrees with the plan. Perimenopausal state 10/22/2022 Overview (03/10/2024): Last Assessment & Plan: With mood changes including increased anxiety and Irritability as well as vasomotor symptoms. Will start Venlafaxine XR 37.5 mg once daily taken with food to minimize GI upset. Explained that she would not notice improvement immediately, so be patient and take daily. F/U 4-6 weeks. She agrees with the plan. Hypertensive disorder 07/30/2022 Asthma 07/30/2022 Allergic conjunctivitis 07/30/2022 Acute COVID-19 08/14/2021 Overview (03/10/2024): Problem added by Discern Expert Problem added by Discern Expert Problem added by Discern Expert Encounters Date Type Department Care Team Description 09/25/2024 Orders Only [facility] [address] [place] [phone] Cali Mcghee MD Hypertension 09/15/2024 2:15 PM EST Office Visit [facility] [address] [facility] [address] [place] [address] Cali Mcghee MD Hypertension (Primary Dx) 08/28/2024 Orders Only [facility] [address] [facility] [address] [place] [phone] Cali Mcghee MD Hypertension 07/31/2024 Orders Only [facility] [address] [facility] 200 [place] [phone] Cali Mcghee MD Hypertension from Last 3 Months Social History Tobacco Use Types Packs/Day Years Used Date Smoking Tobacco: Never Smokeless Tobacco: Never Tobacco Cessation:Counseling Given: Not Answered Alcohol Use Standard Drinks/Week Comments Never 0 (1 standard drink = 0.6 oz pur e alcohol) Comments Unknown Sex and Gender Information Value Date Recorded Sex Assigned at Not on file Legal Sex Female 9:56 AM EDT Gender Identity Not on file Sexual Orientation Not on file Last Filed Vital Signs Vital Sign Reading Time Taken Comments Blood Pressure 120/80 09/15/2024 2:14 PM EST Pulse 68 09/15/2024 2:14 PM EST Temperature - - Respiratory Rate - - Oxygen Saturation 98% 09/15/2024 2:14 PM EST Inhaled Oxygen Concentration - - Weight 72.1 kg (159 lb) 09/15/2024 2:14 PM EST Height - - Body Mass Index - - Plan of Treatment Upcoming Encounters Date Type Department Care Team (Late st Contact Info) Description 03/16/2025 1:15 PM EDT Office Visit [facility] [address] [phone] Cali Mcghee MD [address] [phone] Health Maintenance Due Date Last Done Comments Pneumococcal Vaccine: Pediat rics (0 to 5 Years) and At-Risk Patients (6 to 64 Years) (1 of 2 - PCV) 1991 Hepatitis B Vaccine (1 of 3 - 19+ 3-dose series) 10/01 Influenza Vaccine (#1) 2024 Procedures Procedure Name Priority Date/Time Associated Diagnosis Comments MAGNESIUM Routine 09/07/2024 2:10 PM EST Hypertension PROTEIN / CREATININE RATIO, URINE Routine 09/07/2024 2:10 PM EST Hypertension URINALYSIS WITH MICROSCOPIC Routine 09/07/2024 2:10 PM EST Hypertension MICROSCOPIC EXAMINATION - DO NOT USE Routine 09/07/2024 2:10 PM EST from Last 3 Months Results * (ABNORMAL) Microscopic Examination (09/07/2024 2:10 PM EST) WBC, Urine 0-5 0 - 5 /hpf [facility] RBC, Urine None seen 0 - 2 /hpf [facility] Squamous Epithelial, Urine >10(A) 0 - 10 /hpf [facility] Casts None seen None seen /lpf [facility] Bacteria, Urine Moderate(A ) None seen/Few [facility] 09/07/2024 2:10 PM EST 09/07/2024 Cali Mcghee MD LAB MICROBIOLOGY - NERWI ORDERABLES Final Result [facility] [address] [place] [address] * Protein, Total, Random Urine w/Creatinine (Protein/Creat Ratio) (09/07/2024 2:10 PM EST) Creatinine, Ur 133.7 Not Estab. mg/dL [facility] Protein, Ur 10.1 Not Estab. mg/dL [facility] Urine Protein/Creatin ine Ratio 76 0 - 200 mg/g creat [facility] Urine (Urine, Clean Catch) 09/07/2024 2:10 PM EST 09/07/2024 us Cali Mcghee MD LAB URINE ORDERABLES Final Result [facility] [address] [place] [address] * Urinalysis with microscopic (09/07/2024 2:10 PM EST) Specific [place], Urine 1.021 1.005 - 1.030 [facility] pH Urine 6.5 5.0 - 7.5 [facility] [phone] Color, Urine Yellow Yellow [facility] [phone] Appearance Urine Clear [facility] WBC Esterase Urine Negative Negative [facility] Protein, Ur Negative Negative/Tra ce [facility] Glucose, Ur Negative Negative [facility] [phone] Ketones, Urine Negative Negative [facility] Blood Urine Negative Negative [facility] Bilirubin Urine Negative Negative [facility] Urobilinogen Urine 0.2 0.2 - 1.0 mg/dL [facility] Nitrite, Urine Negative Negative [facility] Microscopic Examination Comment [facility] Comment:Microscopic follows if indicated. Other Microsc. Observations See below: [facility] [phone] Comment:Microscopic was chrissie cated and was performed. Urine (Urine, Clean Catch) 09/07/2024 2:10 PM EST 09/07/2024 us Cali Mcghee MD LAB URINE ORDERABLES Final Result [facility] [phone] [address] [place] [address] * Magnesium (09/07/2024 2:10 PM EST) Magnesium 2.0 1.6 - 2.3 mg/dL [facility] Blood (Blood, Venous) 09/07/2024 2:10 PM EST 09/07/2024 Cali Mcghee MD LAB BLOOD ORDERABLES Final Result [facility] [address] [place] [address] from Last 3 Months Insurance MEDICAID [place] Care Teams Laboratory Technical Specialist Relationship Specialty Start Date End Date Irene Grubbs MD [address] [place] [phone] PCP - General Internal Medicine 01/02/24
--- OUTSIDE RECORDS SUMMARY | 2024-10-06 10:44 | XMS_ITS | Encounter Summary ---
Author Organization [employer] Address [address] [facility] [address] 7[address] [place] [address] Care Team Providers Care Dental Tech Name Role Phone Irene Grubbs MD Primary Care Provider [phone] Encounter Details Date Type Department Care Team (Latest Contact Info) Description 09/28/2024 Travel Social History Tobacco Use Types Packs/Day Years [...] Description 10/07/2024 10:00 AM EST Office Visit [facility] OPTOMETRY [address] [place] [address] Philip, Megan, OD [address] [place] [address] documented as of this encounter Visit Diagnoses Not on filedocumented in this encounter Additional Health Concerns Assessment Noted Time PHQ-9 Depression Total Score: 10 024 3:48 PM EDT documented as of this encounter Care Teams Dental Tech Relationship Specialty Start Date End Date Irene Grubbs MD [address] [place] [address] PCP - General Internal Medicine 07/02/19 documented as of this encounter
--- OUTSIDE RECORDS SUMMARY | 2024-10-06 10:44 | XMS_ITS | Clinical Summary ---
Author Organization [facility] Address [address] [place] [address] Care Team Providers Care Pattern Stamper Name Role Phone Liyah Cummings MD Primary Care Provider [phone] Surgical History Surgery Date Site/Laterality Comments SECTION PROCEDURE: HISTORICAL DELIVERY Family History Medical History Relation Name Comments Diabetes Father Hypertension Father Other: heart disease Father Depression Mother Diabetes Mother Hypertension Mother Other: Other Mother Ovarian cancer Mother Relation Name Status Comments Father Alive Mother Alive Social History Tobacco Use Types Packs/Day Years Used Date Smoking Tobacco: Never Smokeless Tobacco: Never Alcohol Use Standard Drinks/Week Comments Never 0 (1 standard drink = 0.6 oz pur e alcohol) Comments Unknown Sex and Gender Information Value Date Recorded Sex Assigned at Not on file Legal Sex Female 9:51 AM EST Gender Identity Not on file Sexual Orientation Not on file Obstetrics History Plan of Treatment Health Maintenance Due Date Last Done Comments DTaP,Tdap,and Td Vaccines (1 - Tdap) 2004 Hepatitis B Vaccines (1 of 3 - 19+ 3-dose series) 2004 Cervical Cancer Screening: P ap Smear 2006 Depression Screening 07/17/2022 HIV Screening 07/17/2022 Hepatitis C Screening 07/17/2022 Social Influencers of Health Screening 07/17/2022 COVID-19 Vaccine ( - 2023-2 5 season) 2024 Influenza Vaccine (#1) 2024 HIB Vaccines Aged Out No longer eligi [...] on patient's age to complete this topic MMR Vaccines Aged Out No longer eligi ble based on patient's age to complete this topic Meningococcal ACWY Vaccine Aged Out N o longer eligible based on patient's age to complete this topic Meningococcal B Vacine Aged Out No lo nger eligible based on patient's age to complete this topic Pneumococcal Vaccine: Pediat rics (0 to 5 Years) and At-Risk Patients (6 to 64 Years) Aged Out No longer eligible b ased on patient's age to complete this topic RSV Immunization Patients Un jackelin 20 months Aged Out No longer eligible b ased on patient's age to complete this topic Varicella Vaccines Aged Out No longer eligible based on patient's age to complete this topic Care Teams Pattern Stamper Relationship Specialty Start Date End Date Liyah Cummings MD [address] [place] [phone] PCP - General 09/30/14
--- OUTSIDE RECORDS SUMMARY | 2024-10-06 10:44 | XMS_ITS | Encounter Summary ---
Author Organization [employer] Address [address] [facility] 7 [place] [address] Care Team Providers Care Ground Products Director Name Role Phone Irene Grubbs MD Primary Care Provider [phone]- [phone] Reason for Visit * Reason Onset Date Comments Referral 06/06/2023 Encounter Details Date Type Department Care Team ([facility] st Contact Info) Description 06/06/2023 Telephone [facility] CHC MED & PEDS [address] [place], [place] [phone] Irene Grubbs MD [address] [place] [address] Referral Social History Tobacco Use Types Packs/Day Years Used Date Smoking Tobacco: Never Smokeless Tobacco: Never Depression Answer Date Recorded Patient Health Questionnaire-9 Score 5 04/29/2023 Housing Stability Answer Date Recorded What is your housing situation today? I have cristimary obrien 06/06/[address] you [...] Date Recorded Patient Health Questionnaire-2 Score 0 04/29/2023 Comments Unknown Sex and Gender Information Value Date Recorded Sex Assigned at Female 06/18/2022 10:23 AM EDT Legal Sex Female 10:23 AM EDT Gender Identity Female 06/18/2022 10:23 AM EDT Sexual Orientation Straight 06/18/2022 10 :23 AM EDT documented as of this encounter Miscellaneous Notes * Telephone Encounter - Elizabet Kelley RN - 06/06/2023 1:47 PM EDT Ordered 04/08/23. Please review message below and f/u with pt on status of the ordered sleep study. Thank you. * Telephone Encounter - Kassidy Lagos - 06/06/2023 9:03 AM EDT Tc from pt requesting new referral for sleep study. Pt stating on last visit ask PCP for referral. documented in this encounter Plan of Treatment Upcoming Encounters Date Type Department Care Team (Late st Contact Info) Description 10/07/2024 10:00 AM EST Office Visit [facility] OPTOMETRY [address] [place] [address] Philip, Destiny, OD [address] [place] [address] documented as of this encounter Visit Diagnoses Not on filedocumented in this encounter Additional Health Concerns Assessment Noted Time PHQ-9 Depression Total Score: 5 04/29/20 23 11:15 AM EDT documented as of this encounter Care Teams Ground Products Director Relationship Specialty Start Date End Date Irene Grubbs MD [address] [place] [address] PCP - General Internal Medicine 07/02/19 documented as of this encounter
--- OUTSIDE RECORDS SUMMARY | 2024-10-06 10:44 | XMS_ITS | Encounter Summary ---
Author Organization [employer] Address [address] [facility] 7t [place] [address] Care Team Providers Care Front End Web Developer Name Role Phone Irene Grubbs MD Primary Care Provider Encounter Details Date Type Department Care Team ([facility] Contact Info) Description 02/04/2023 Orders Only [facility] CHC MED & PEDS [address] [place], [place] [phone] Irene Grubbs MD [address] [place] [address] Low TSH level (Primary Dx); Positive RU (antinuclear antibody) Social History Tobacco Use Types Packs/Day Years Used Date Smoking Tobacco: Never Smokeless Tobacco: Never Comments Unknown Sex and Gender Information Value Date Recorded Sex Assigned at Female 06/18/2022 10:23 AM EDT Legal Sex Female 10:23 AM EDT Gender Identity Female 06/18/2022 10:23 AM EDT Sexual Orientation Straight 06/18/2022 10 :23 AM EDT COVID-19 Exposure Response Date Recorded In the last 10 days, have yo u been in contact with someone who was confirmed or suspected to have Coronavirus/COVID-19? No / Unsure 01/08/2023 3:43 PM EDT documented as of this encounter Plan of Treatment Upcoming Encounters Date Type Department Care Team (Late Contact Info) Description 10/07/2024 10:00 AM EST Office Visit [facility] OPTOMETRY [address] [place], [place] [phone] PhilipDestiny jiang, OD [address] [place], [place] [address] Scheduled Orders Name Type Priority Associated Diagnoses Orde r Schedule TSH W/Reflex to FT4 Lab Routine Low TSH level Expected: 02/07/2023 (Approximate), Expires: 02/08/2024 documented as of this encounter Procedures Procedure Name Priority Date/Time Associated Diagnosis Comments TSH W/REFLEX TO FT4 Routine 02/06/2023 3 :58 PM EDT Low TSH level T4, FREE Routine 02/06/2023 3:58 PM EDT documented in this encounter Results * T4, Free (02/06/2023 3:58 PM EDT) T4, Free 1.3 0.8 - 1.8 ng/dL [facility] [place] [facility] 02/06/2023 3:58 PM EDT 02/06/2023 3:58 PM EDT Narrative [facility] - 02/07/2023 5:10 AM EDT FASTING:NO FASTING: NO us Irene Grubbs MD LAB BLOOD ORDERABLES Final Result [facility] [address], [place] [address] [employer] [employer] [place] [facility] [address] [place] [address] * (ABNORMAL) TSH W/Reflex to FT4 (02/06/2023 3:58 PM EDT) TSH w/Reflex to FT4 0.32(L) mIU/L [facility] Comment: ?Reference Range ?> or = 20 Years ??0.40-4.50 ? Ranges ?First trimester ?0.26-2.66 ?Second trimester ?? 0.55-2.73 ?Third trimester ?0.43-2.91 Blood 02/06/2023 3:58 PM EDT 02/06/2023 3:58 PM EDT Narrative [facility] - 02/07/2023 5:10 AM EDT FASTING:NO FASTING: NO us Irene Grubbs MD LAB BLOOD ORDERABLES Final Result [facility] [address] [place] [address], [place] [address] [facility] [address] [place] [address] documented in this encounter Visit Diagnoses Diagnosis Low TSH level- Primary Positive RU (antinuclear antibody) Other and unspecified nonspecific immunological findings documented in this encounter Additional Health Concerns Assessment Noted Time PHQ-9 Depression Total Score: 9 10/23/19 23 4:00 PM EST documented as of this encounter Care Teams Front End Web Developer Relationship Specialty Start Date End Date Irene Grubbs MD [address] [place] [address] PCP - General Internal Medicine 07/02/19 documented as of this encounter
--- OUTSIDE RECORDS SUMMARY | 2024-10-06 10:44 | XMS_ITS | Encounter Summary ---
Author Organization [facility] Address [address] [place] [address] [address] [address] Care Team Providers Care Web Services Developer Name Role Phone Irene Grubbs MD Primary Care Provider [phone] Reason for Referral * Imaging (Routine) - Denied Specialty Diagnoses / Procedures Referred By Rosalia t Referred To Contact Radiology Diagnoses Resistant hypertension Procedures US RENAL ARTERY DOPPLER BILATERAL Irene Grubbs MD [address] [place] [address] Phone: tel: fax: [address] Phone: tel: fax: Referral ID Status Reason Start Date Expiration Date Visits Re quested Visits Authorized [id number] Denied 11/28/2023 11/27/2024 1 0 * Imaging (Routine) - Denied Specialty Diagnoses / Procedures Referred By Contac t Referred To Contact Radiology Diagnoses Resistant hypertension Procedures US RENAL BI Irene Grubbs MD [address] [place] [address] Phone: tel: fax: [address] Phone: tel: fax: Referral ID Status Reason Start Date Expiration Date Visits Re quested Visits Authorized [id number] Denied 11/28/2023 11/27/2024 1 0 Encounter Details Date Type Department Care Team ([facility] st Contact Info) Description 11/28/2023 Orders Only [facility] CHC MED & PEDS [address] [place] [address] Irene Grubbs MD [address] [place] [address] Resistant hypertension (Primary Dx) Social History Tobacco Use Types [...] Description 10/07/2024 10:00 AM EST Office Visit [facility] OPTOMETRY [address] [place], [place] [id number] Destiny Palacios, OD [address] [place] [address] Scheduled Orders Name Type Priority Associated Diagnoses Orde r Schedule US RENAL BI Imaging Routine Resistant hypertension Expected: 11/28/2023, Expires: 11/27/2024 US RENAL ARTERY DOPPLER BILATERAL Imaging Routine Resistant hypertension Expected: 11/28/2023, Expires: 11/27/2024 documented as of this encounter Visit Diagnoses Diagnosis Resistant hypertension- Primary documented in this encounter Additional Health Concerns Assessment Noted Time PHQ-9 Depression Total Score: 7 11/07/19 24 3:57 PM EDT documented as of this encounter Care Teams Web Services Developer Relationship Specialty Start Date End Date Irene Grubbs MD [address] [place] [id number] PCP - General Internal Medicine 07/02/19 documented as of this encounter
--- OUTSIDE RECORDS SUMMARY | 2024-10-06 10:44 | XMS_ITS | Encounter Summary ---
Author Organization [employer] Address [address] [facility] 7t [place] [address] Care Team Providers Care Oracle Soa Developer Name Role Phone Irene Grubbs MD Primary Care Provider [phone] Reason for Visit * Reason Onset Date Comments Letter for School/Work 08/07/2023 Encounter Details Date Type Department Care Team ([facility] st Contact Info) Description 08/07/2023 Telephone [facility] MEDICINE [address] [place] [address] Irene Grubbs MD [address] [place] [address] Letter for School/Work Social History Tobacco Use Types Packs/Day Years Used Date Smoking Tobacco: Never Smokeless Tobacco: Never Depression Answer Date Recorded Patient Health Questionnaire-9 Score 13 06/18/2023 Patient Health Questionnaire-9 Score 13 06/18/2023 Last PHQ-9: Questionnaire Data Not on file [...] Date Recorded Patient Health Questionnaire-2 Score 4 06/18/2023 Comments Unknown Sex and Gender Information Value Date Recorded Sex Assigned at Female 06/18/2022 10:23 AM EDT Legal Sex Female 10:23 AM EDT Gender Identity Female 06/18/2022 10:23 AM EDT Sexual Orientation Straight 06/18/2022 10 :23 AM EDT documented as of this encounter Miscellaneous Notes * Telephone Encounter - Carla Mendoza RN - 08/07/2023 9:54 AM EST Please review and advise if letter for school testing accomodation can be generated for pt. * Telephone Encounter - Kassidy Lagos - 08/07/2023 9:27 AM EST Tc from pt requesting a letter from PCP stating pt has anxiety disorder, pt have a test and need more time to completed. Pt stated letter has to say need accomodation. If any question please contact pt in senegalese for clarifications. documented in this encounter Plan of Treatment Upcoming Encounters Date Type Department Care Team (Late st Contact Info) Description 10/07/2024 10:00 AM EST Office Visit [facility] OPTOMETRY [address] [place] [address] Philip, Destiny, OD [address] [place] [address] documented as of this encounter Visit Diagnoses Not on filedocumented in this encounter Additional Health Concerns Assessment Noted Time PHQ-9 Depression Total Score: 13 023 11:25 AM EDT documented as of this encounter Care Teams Oracle Soa Developer Relationship Specialty Start Date End Date Irene Grubbs MD [address] [place] [address] PCP - General Internal Medicine 07/02/19 documented as of this encounter
--- OUTSIDE RECORDS SUMMARY | 2024-10-06 10:44 | XMS_ITS | Encounter Summary ---
Author Organization [employer] Address [address] [facility] [address], [place] [address] Care Team Providers Care Fuel Management Handler Name Role Phone Irene Grubbs MD Primary Care Provider [phone] Reason for Visit * Reason Onset Date Comments Med Refill 07/03/2023 Encounter Details Date Type Department Care Team ([facility] st Contact Info) Description 07/03/2023 Telephone [facility] CHC MED & PEDS [address] [place] [address] Irene Grubbs MD [address] [place] [address] Med Refill Social History Tobacco Use Types [...] encounter Miscellaneous Notes * Telephone Encounter - Julissa Kelley - 07/03/2023 9:46 AM EST Tc from pt requesting medication refill on enalapril (Vasotec) 20 MG tablet and gabapentin (Neurontin) 100 MG capsule to be sent to [id number] AT [facility] documented in this encounter Plan of Treatment Upcoming Encounters Date Type Department Care Team (Late st Contact Info) Description 10/07/2024 10:00 AM EST Office Visit [facility] OPTOMETRY [address] [place] [address] Philip, Destiny, OD [address] [place] [address] documented as of this encounter Visit Diagnoses Not on filedocumented in this encounter Additional Health Concerns Assessment Noted Time PHQ-9 Depression Total Score: 13 023 11:25 AM EDT documented as of this encounter Care Teams Fuel Management Handler Relationship Specialty Start Date End Date Irene Grubbs MD [address] [place] [address] PCP - General Internal Medicine 07/02/19 documented as of this encounter
--- OUTSIDE RECORDS SUMMARY | 2024-10-06 10:45 | XMS_ITS | Encounter Summary ---
Author Organization [employer] Address [address] [facility] [address] [address] Care Team Providers Care Personal Service Representative Name Role Phone Irene Grubbs MD Primary Care Provider [phone] Reason for Visit * Reason Onset Date Comments Med Refill 09/15/2024 Encounter Details Date Type Department Care Team ([facility] st Contact Info) Description 09/15/2024 Telephone [facility] CHC MED & PEDS [address] [place] [address] Irene Grubbs MD [address] [place] [address] Med Refill Social History Tobacco Use Types [...] encounter Miscellaneous Notes * Telephone Encounter - Sandrine Jim LPN - 09/15/2024 9:20 AM EST Received request on LORazepam (Ativan) 0.5 MG tablet documented in this encounter Plan of Treatment Upcoming Encounters Date Type Department Care Team (Late st Contact Info) Description 10/07/2024 10:00 AM EST Office Visit [facility] OPTOMETRY [address] [place] [address] PhiilpDestiny jiang, OD [address] [place] [address] documented as of this encounter Visit Diagnoses Not on filedocumented in this encounter Additional Health Concerns Assessment Noted Time PHQ-9 Depression Total Score: 10 024 3:48 PM EDT documented as of this encounter Care Teams Personal Service Representative Relationship Specialty Start Date End Date Irene Grubbs MD [address] [place] [address] PCP - General Internal Medicine 07/02/19 documented as of this encounter
--- OUTSIDE RECORDS SUMMARY | 2024-10-06 10:45 | XMS_ITS | Encounter Summary ---
Author Organization [employer] Address [address] [place] [address] [address], [place] [address] Care Team Providers Care Algology Teacher Name Role Phone Irene Grubbs MD Primary Care Provider [phone] Reason for Referral * Imaging (Routine) - Authorized Specialty Diagnoses / Procedures Referred By Contdenisse t Referred To Contact Radiology Diagnoses Enlarged thyroid Procedures US Thyroid Irene Grubbs MD [address] [place] [address] Phone: tel: fax: [address] Phone: tel: fax: Referral ID Status Reason Start Date Expiration Date V isits Requested Visits Authorized [id number] Authorized 09/28/2024 09/28/2025 1 1 Reason for Visit * Reason Comments Hypertension Nasal Congestion Handicap placard Encounter Details Date Type Department Care Team (Latest Contact Info) Description 09/28/2024 3:45 PM EST Office Visit [facility] CHC MED & PEDS [address] [place], [place] [phone] Irene Grubbs MD [address] [place] [address] Enlarged thyroid (Primary Dx); Congested nose; Sore throat; Synovitis and tenosynovitis of left ankle and foot Social History Tobacco Use Types Packs/Day Years [...] AM EDT documented as of this encounter Last Filed Vital Signs Vital Sign Reading [...] Mass Index 27.12 09/28/2024 4:09 PM EST documented in this encounter Progress Notes * Irene Grubbs MD - 09/28/2024 3:45 PM EST Subjective Patient ID: María Elena Pruett is a 38 y.o. female who presents for Hypertension, Nasal Congestion, and Handicap placard. Hypertension Pertinent negatives include no shortness of breath. Patient with history of hypertension. She is very compliant to her medication. No reported side effect no reported headache or blurry vision during the evaluation today. Was evaluated by her dietetic technician on September 15, 2024 who recommended a renal duplex imaging study to rule out FMD. Patient was reminded to monitor and record her blood pressure daily and if well-controlled to do it 3 times a week. History of left foot ORIF, second tarsometatarsal with arthrodesis performed in February 2020. Follows up with orthopedics. Patient complains of left foot pain exacerbated by walking. She is requesting to get her handicap placard form filled out for her. Patient is also concerned about the nasal congestion that started today. She reports that many children at school are sick with similar symptoms. She denies fevers or constitutional symptoms. Patient is also concerned about her weight that keeps fluctuating. Also concerned about her thyroidbecause of feeling constantly exhausted. Patient Active Problem List Diagnosis Hypertensive disorder Asthma Allergic conjunctivitis Acute COVID-19 Anxiety Perimenopausal symptoms Subclinical hyperthyroidism Caregiver role strain Chronic pelvic pain in female Palpitations Renal stone Restless legs Moderate episode of recurrent major depressive disorder (CMS/HCC) Synovitis and tenosynovitis of left ankle and foot Current Outpatient Medications on File Prior to Visit Medication Sig Dispense Refill albuterol (2.5 MG/3ML) 0.083% nebulizer solution Take 3 mL by nebulization every 4 (four) hours if needed for wheezing. 75 mL 2 atenolol (Tenormin) 50 MG tablet Take 1 tablet (50 mg) by mouth Once per day. 30 tablet 11 azithromycin (Zithromax) 250 MG tablet Day 1: 500 mg. Day 2-5: 250 mg 6 tablet 0 busPIRone (Buspar) 5 MG tablet Take 1 tablet (5 mg) by mouth 2 times daily. 60 tablet 11 chlorthalidone (Hygroton) 25 MG tablet Take 1 tablet (25 mg) by mouth in the morning. 30 tablet 11 cholecalciferol (Vitamin D-3) 50 MCG (2000 UT) capsule 1 capsule a day 30 capsule 11 cyclobenzaprine (Flexeril) 10 MG tablet Take 1 tablet (10 mg) by mouth at bedtime. 30 tablet 3 Diclofenac Sodium 1 % gel To apply to the affected area 3 times a day 100 g 0 EPINEPHrine (Epipen) 0.3 MG/0.3ML injection syringe INJECT 1 DEVICE INTO THE MUSCLE DIRECTED 1 TIME FOR 1 DOSE 2 each 11 fexofenadine (Allergy Relief) 180 MG tablet TAKE 1 TABLET(180 MG) BY MOUTH IN THE MORNING 30 tablet5 fluconazole (Diflucan) 150 MG tablet TAKE 1 TABLET(150 MG) BY MOUTH 1 TIME FOR 1 DOSE 1 tablet 0 fluticasone-salmeterol (Advair) 230-21 MCG/ACT inhaler Inhale 2 puffs in the morning and at bedtime. Rinse mouth with water after use to reduce aftertaste and incidence of candidiasis. Do not swallow. 12 g 11 guaiFENesin (Mucinex) 600 MG 12 hr tablet Take 2 tablets (1,200 mg) by mouth 2 times daily. Do not crush, chew, or split. 120 tablet 11 LORazepam (Ativan) 0.5 MG tablet Take 1 tablet (0.5 mg) by mouth if needed each day for anxiety. 30tablet 0 Mometasone Furoate (Asmanex HFA) 200 MCG/ACT aerosol Inhale 2 puffs every 12 (twelve) hours. 13 g 3 montelukast (Singulair) 10 MG tablet TAKE 1 TABLET BY MOUTH DAILY 90 tablet 3 valACYclovir (Valtrex) 500 MG tablet Ventolin HFA 108 (90 Base) MCG/ACT inhaler INHALE 2 PUFFS BY MOUTH 4-6 TIMES EVERY DAY NEEDED 18g 11 verapamil SR (Calan SR) 240 MG ER tablet Take 1 tablet (240 mg) by mouth at bedtime. Do not crush or chew. 30 tablet 11 No current facility-administered medications on file prior to visit. Allergies Allergen Reactions Aspirin Sulfamethoxazole Unknown Trimethoprim Unknown Review of Systems Constitutional: Negative for appetite change, chills and diaphoresis. HENT: Positive for congestion. Eyes: Negative for pain, redness and itching. Respiratory: Negative for cough and shortness of breath. Genitourinary: Negative for enuresis, flank pain and frequency. Musculoskeletal: Negative for gait problem and joint swelling. Skin: Negative for pallor and rash. Objective BP 137/86 (BP Location: Left arm, Patient Position: Sitting, BP Cuff Size: Adult) Pulse 69 Temp98.3 ??F (36.8 ??C) (Oral) Resp 20 Ht 5' 3.39 (1.61 m) Wt 155 lb (70.3 kg) SpO2 97% BMI 27.12 kg/m?? Physical Exam Constitutional: General: She is not in acute distress. Appearance: Normal appearance. She is not ill-appearing, toxic-appearing or diaphoretic. HENT: Head: Normocephalic. Nose: Nose normal. No congestion or rhinorrhea. Eyes: Pupils: Pupils are equal, round, and reactive to light. Cardiovascular: Rate and Rhythm: Normal rate and regular rhythm. Pulmonary: Effort: Pulmonary effort is normal. Abdominal: General: Abdomen is flat. Neurological: Mental Status: She is alert. Assessment/Plan Diagnoses and all orders for this visit: Enlarged thyroid Comments: Thyroid is mildly enlarged TSH and ultrasound of the thyroid ordered Orders: - TSH W/Reflex to FT4; Future - US Thyroid; Future Congested nose Comments: Workup in the office negative Supportive care recommended: Fluids, rest, Tylenol [id number] Call the office as needed Orders: - POCT Rapid Covid-19 BinaxNOW - POCT Rapid Influenza B OSOM - POCT Rapid Influenza A OSOM Sore throat Comments: Gargle with warm salt water Tylenol [id number] recommended Orders: - POCT Rapid Strep A OSOM Synovitis and tenosynovitis of left ankle and foot Comments: Chronic left foot pain with history of midfoot synovitis and previous Lisfranc injury with removal of hardware Patient is complaining of left foot pain exacerbated by walking more than 100 feet. The handicap placard form will be filled out for her. documented in this encounter Plan of Treatment Upcoming Encounters Date Type Department Care Team (Late st Contact Info) Description 10/07/2024 10:00 AM EST Office Visit [facility] OPTOMETRY [address] [place] [phone] Destiny Palacios, OD [address] [place] [address] Scheduled Orders Name Type Priority Associated Diagnoses Orde r Schedule TSH W/Reflex to FT4 Lab Routine Enlarged thyroid Expected: 09/28/2024 (Approximate), Expires: 09/28/2025 US Thyroid Imaging Routine Enlarged thyroid Expected: 09/28/2024, Expires: 09/28/2025 documented as of this encounter Procedures Procedure Name Priority Date/Time Associated Diagnosis Comments POCT INFLUENZA A Routine 09/28/2024 4:40 PM EST Congested nose POCT RAPID STREP A Routine 09/28/2024 4: 40 PM EST Sore throat POCT INFLUENZA B Routine 09/28/2024 4:39 PM EST Congested nose POCT RAPID COVID ANTIGEN Routine 09/28/2024 4:38 PM EST Congested nose documented in this encounter Results * POCT Rapid Strep A OSOM (09/28/2024 4:40 PM EST) Rapid Strep A Screen Negative Negative, None Detected QC Media Lot # [id number] Lot# Expiration Date Swab 09/28/2024 4:40 PM EST Irene Grubbs MD POINT OF CARE TEST ENTER/ED IT ORDERABLES Final Result * POCT Rapid Influenza A OSOM (09/28/2024 4:40 PM EST) Rapid Influenza A Ag Negative Negative, Indeterminate QC Media Lot # [id number] Lot# Expiration Date Swab Nasopharyngeal structure / Unknown 09/28/2024 4:40 PM EST Irene Grubbs MD POINT OF CARE TEST ENTER/ED IT ORDERABLES Final Result * POCT Rapid Influenza B OSOM (09/28/2024 4:39 PM EST) Rapid Influenza B Ag Negative Negative, Indeterminate QC Media Lot # [id number] Lot# Expiration Date 6,025 Swab 09/28/2024 4:39 PM EST Irene Grubbs MD POINT OF CARE TEST ENTER/ED IT ORDERABLES Final Result * POCT Rapid Covid-19 BinaxNOW (09/28/2024 4:38 PM EST) Rapid COVID Ag Negative QC Media Lot # [id number] Lot# Expiration Date 5,026 Swab 09/28/2024 4:38 PM EST Irene Grubbs MD POINT OF CARE TEST ENTER/ED IT ORDERABLES Edited Result - Final documented in this encounter Visit Diagnoses Diagnosis Enlarged thyroid- Primary Goiter, unspecified Congested nose Other diseases of nasal cavity and sinuses Sore throat Acute pharyngitis Synovitis and tenosynovitis of left ankle and foot documented in this encounter Additional Health Concerns Assessment Noted Time PHQ-9 Depression Total Score: 10 024 3:48 PM EDT documented as of this encounter Care Teams Algology Teacher Relationship Specialty Start Date End Date Irene Grubbs MD [address] [place] [address] PCP - General Internal Medicine 07/02/19 documented as of this encounter
--- OUTSIDE RECORDS SUMMARY | 2024-10-06 10:45 | XMS_ITS | Encounter Summary ---
Author Organization [employer] Address [address] [facility] 7 [place] [address] Care Team Providers Care Director Presales Name Role Phone Irene Grubsb MD Primary Care Provider [phone] Reason for Visit * Reason Comments Med Refill Encounter Details Date Type Department Care Team ([facility] st Contact Info) Description 09/03/2024 Refill [facility] CHC MED & PEDS [address] [place] [address] Irene Grubbs MD [address] [place] [address] Fibromyalgia; Anxiety Social History Tobacco Use Types Packs/Day Years [...] Description 10/07/2024 10:00 AM EST Office Visit [facility] OPTOMETRY [address] [place] [address] Philip, Destiny, OD [address] [place] [address] documented as of this encounter Visit Diagnoses Diagnosis Fibromyalgia Unspecified myalgia and myositis Anxiety Anxiety state, unspecified documented in this encounter Additional Health Concerns Assessment Noted Time PHQ-9 Depression Total Score: 10 024 3:48 PM EDT documented as of this encounter Care Teams Director Presales Relationship Specialty Start Date End Date Irene Grubbs MD [address] [place] [address] PCP - General Internal Medicine 07/02/19 documented as of this encounter
--- OUTSIDE RECORDS SUMMARY | 2024-10-06 10:45 | XMS_ITS | Encounter Summary ---
Author Organization [employer] Address [address] [facility] [address] [address] Care Team Providers Care Brick Dropper Name Role Phone Irene Grubbs MD Primary Care Provider [phone]- [phone] Reason for Visit * Reason Onset Date Comments chart prep 09/24/2024 Encounter Details Date Type Department Care Team ([facility] st Contact Info) Description 09/24/2024 Telephone [facility] CHC MED & PEDS [address] [place] [address] Irene Grubbs MD [address] [place] [address] chart prep Social History Tobacco Use Types Packs/Day Years [...] encounter Miscellaneous Notes * Telephone Encounter - Мария Brown MA - 09/24/2024 3:45 PM EST Chart Prep Labs: done Images: done Vaccines due: yes Referrals: complete Screenings: pap smear Overdue care gaps: none documented in this encounter Plan of Treatment Upcoming Encounters Date Type Department Care Team (Late st Contact Info) Description 10/07/2024 10:00 AM EST Office Visit [facility] OPTOMETRY [address] [place] [address] PhilipDestiny jiang, OD [address] [place] [address] documented as of this encounter Visit Diagnoses Not on filedocumented in this encounter Additional Health Concerns Assessment Noted Time PHQ-9 Depression Total Score: 10 024 3:48 PM EDT documented as of this encounter Care Teams Brick Dropper Relationship Specialty Start Date End Date Irene Grubbs MD [address] [place] [address] PCP - General Internal Medicine 07/02/19 documented as of this encounter
--- OUTSIDE RECORDS SUMMARY | 2024-10-06 10:45 | XMS_ITS | Encounter Summary ---
Author Organization [facility] Address [address] [phone] Phone Care Team Providers Care Hemodialysis Rn Name Role Phone Irene Grubbs MD Primary Care Provider [phone] Reason for Referral * Imaging (Routine) - Pending Review Specialty Diagnoses / Procedures Referred By Rosalia landres Referred To Contact Diagnoses Hypertension Procedures Renal Artery Duplex Cali Mcghee MD [address] [address] Phone: tel: fax: Referral ID Status Reason Start Date Expiration Date V isits Requested Visits Authorized [id number] Pending Review 09/15/2024 09/15/2025 1 1 Reason for Visit * Reason Comments Hypertension Encounter Details Date Type Department Care Team ([facility] st Contact Info) Description 09/15/2024 2:15 PM EST Office Visit [facility] [address] [phone] Cali Mcghee MD [address] [address] Hypertension (Primary Dx) Social History Tobacco Use Types [...] on file Sexual Orientation Not on file documented as of this encounter Last Filed [...] - - Body Mass Index - - documented in this encounter Progress Notes * Cali Mcghee MD - 09/15/2024 2:15 PM EST Images from the original note were not included. Patient Name: María Elena Pruett Female Date of : 1985, 38 y.o. Date: 09/15/2024 History of Present Illness María Elena Pruett is a 38 y.o. female seen for evaluation of resistant htn with high renin levels - Diagnosed with hypertension at age 17 - Asthma since childhood, has been hospitalized but never intubated - No history of diabetes - Hypertension prevalent in family - Kidney disease on mother's side, with family members having been on dialysis - Works as a teacher - Non-smoker - Does not consume caffeine Today - High blood pressure, managed with morning medication - Reports occasional leg swelling at the end of the day - Previously experienced drowsiness on carvedilol, which was discontinued The following portions of the patient's chart were reviewed in this encounter and updated as appropriate: Allergies Meds Problems Med Hx Surg Hx Fam Hx Past Medical History: Diagnosis Date Congestive heart failure (HCC) Essential hypertension Review of Systems Constitutional: Negative for chills and fever. Respiratory: Negative for cough and shortness of breath. Cardiovascular: Negative for chest pain, palpitations and leg swelling. Gastrointestinal: Negative for abdominal pain, nausea and vomiting. Genitourinary: Negative for dysuria, frequency, hematuria and urgency. Medication List Current Outpatient Medications Medication Sig Dispense Refill albuterol HFA (PROVENTIL HFA;VENTOLIN HFA) 108 (90 Base) MCG/ACT inhaler Inhale 2 puffs every 6 (six) hours if needed for wheezing atenolol (TENORMIN) 25 MG tablet Take 50 mg by mouth 1 (one) time each day chlorthalidone 25 MG tablet Take 25 mg by mouth 1 (one) time each day DULoxetine (CYMBALTA) [address] capsule Take 20 mg by mouth 1 (one) time each day Do not crush or chew. EPINEPHrine (ADRENALIN) 0.1 % nasal solution Administer 0.5 mL into each nostril if needed gabapentin (NEURONTIN) 100 MG capsule Take 100 mg by mouth in the morning and 100 mg in the eveningand 100 mg before bedtime. LORazepam (ATIVAN) 0.5 MG tablet Take 0.5 mg by mouth every 8 (eight) hours if needed for anxiety No current facility-administered medications for this visit. Allergy List Allergies Allergen Reactions Aspirin Hives Yikczyy-Kewv-Tkosacj [Alitraq] Chocolate Hazelnut Flavor [Flavoring Agent (Non-Screening)] Mushroom Extract Complex (Do Not Select) Sesame Seed Extract [Sesame Oil] Soybean-Containing Drug Products Sulfamethoxazole Other (see comments) Trimethoprim Other (see comments) Physical Exam BP 120/80 (BP Location: Right upper arm, Patient Position: Sitting, BP Cuff Size: Adult) Pulse 68 Wt 159 lb (72.1 kg) SpO2 98% Vitals reviewed. Constitutional: She is oriented to person, place, and time. She appears well- developed. No distress. Cardiovascular: Normal rate, regular rhythm and normal heart sounds. She exhibits no edema. Pulmonary/Chest: Effort normal and breath sounds normal. No respiratory distress. Abdominal: Soft. There is no abdominal tenderness. Musculoskeletal: Normal range of motion. Neurological: She is alert and oriented to person, place, and time. Skin: Skin is warm and dry. Labs Chemistry Lab Units 02/14/24 1220 SODIUM mmol/L 139 POTASSIUM mmol/L 3.5 CO2 mmol/L 27 BUN mg/dL 17 CREATININE mg/dL 0.63 CHLORIDE mmol/L 97 EGFR mL/min/1.73 116 HEMOGLOBIN g/dL 13.6 HEMATOCRIT % 40.9 PLATELETS AUTO x10E3/uL 312 Bone Mineral Lab Units 09/07/24 1410 02/14/24 1220 CALCIUM mg/dL -- 9.8 PHOSPHORUS mg/dL -- 2.3* PTH pg/mL -- 23 MAGNESIUM mg/dL 2.0 2.1 Urine Lab Units 09/07/24 1410 02/14/24 1220 PROT/CREAT RATIO UR mg/g creat 76 86 ALB MG/G CREAT UR mg/g creat -- 4 Iron Studies Lab Units 02/14/24 1220 FERRITIN ng/mL 223* TIBC ug/dL 302 IRON SATURATION % 26 Assessment & Plan 1. Hypertension - Hypertension since age 17 - Recent lab work showed high serum renin levels- however rpt alesha wnl - Low potassium levels in September, but have since normalized - metanephrines wnl - Genetic testing for inherited conditions causing kidney problems or hypertension- negative - was on coreg, stopped due to drowsiness, - Was on elalapril now stopped, bp better since switch to atenolol - now on Atenolol 25 mg daily and Chlorthalidone 25mg daily for blood pressure - Verapamil as needed for blood pressure, but not currently taking as well controlled with atenolol - she likely has essential htn Plan - Renal duplex imaging study ordered to rule out FMD - Patient to monitor and record blood pressure daily if well controlled to do 3 times/ week - Low salt diet Orders Placed This Encounter Renal Artery Duplex Cystatin C w/GFR Protein, Total, Random Urine w/Creatinine (Protein/Creat Ratio) Uric Acid Ferritin Iron Panel (Fe, TIBC, TSAT) Hemoglobin A1c CBC and Differential Basic Metabolic Panel Urinalysis with microscopic Urine Albumin / Creatinine Ratio Vitamin D 25 Hydroxy PTH, Intact Magnesium Phosphorus Return in about 6 months (around 03/15/2025). Cali Mcghee MD documented in this encounter Plan of Treatment Upcoming Encounters Date Type Department Care Team (Late st Contact Info) Description 03/16/2025 1:15 PM EDT Office Visit [facility] [address] [phone] Cali cMghee MD [address] [phone] Scheduled Orders Name Type Priority Associated Diagnoses Orde r Schedule Cystatin C w/GFR Lab Routine Hypertension Expected: 03/15/2025 (Approximate), Expires: 10/16/2025 Protein, Total, Random Urine w/Creatinine (Protein/Creat Ratio) Lab Routine Hypertension Expected: 03/15/2025 (Approximate), Expires: 10/16/2025 Uric Acid Lab Routine Hypertension Expected: 03/15/2025 (Approximate), Expires: 10/16/2025 Ferritin Lab Routine Hypertension Expected: 03/15/2025 (Approximate), Expires: 10/16/2025 Iron Panel (Fe, TIBC, TSAT) Lab Routine Hypertension Expected: 03/15/2025 (Approximate), Expires: 10/16/2025 Hemoglobin A1c Lab Routine Hypertension Expected: 03/15/2025 (Approximate), Expires: 10/16/2025 CBC and Differential Lab Routine Hypertension Expected: 03/15/2025 (Approximate), Expires: 10/16/2025 Basic Metabolic Panel Lab Routine Hypertension Expected: 03/15/2025 (Approximate), Expires: 10/16/2025 Urinalysis with microscopic Lab Routine Hypertension Expected: 03/15/2025 (Approximate), Expires: 10/16/2025 Urine Albumin / Creatinine Ratio Lab Routine Hypertension Expected: 03/15/2025 (Approximate), Expires: 10/16/2025 Vitamin D 25 Hydroxy Lab Routine Hypertension Expected: 03/15/2025 (Approximate), Expires: 10/16/2025 PTH, Intact Lab Routine Hypertension Expected: 03/15/2025 (Approximate), Expires: 10/16/2025 Magnesium Lab Routine Hypertension Expected: 03/15/2025 (Approximate), Expires: 10/16/2025 Phosphorus Lab Routine Hypertension Expected: 03/15/2025 (Approximate), Expires: 10/16/2025 Renal Artery Duplex Imaging Routine Hypertension Expected: 09/15/2024, Expires: 09/15/2025 documented as of this encounter Visit Diagnoses Diagnosis Hypertension- Primary documented in this encounter Care Teams Hemodialysis Rn Relationship Specialty Start Date End Date Irene Grubbs MD [address] [place] [id number] PCP - General Internal Medicine 01/02/24 documented as of this encounter
--- OUTSIDE RECORDS SUMMARY | 2024-10-06 10:45 | XMS_ITS | Encounter Summary ---
Author Organization [facility] Address [address] [facility] [address] [phone] Phone Care Team Providers Care Weight Shifter Name Role Phone Irene Grubbs MD Primary Care Provider [phone]- [phone] Encounter Details Date Type Department Care Team (Late st Contact Info) Description 09/25/2024 Orders Only [facility] [address] [phone] Cali Mcghee MD [address] [phone] Hypertension Social History Tobacco Use Types Packs/Day Years [...] on file documented as of this encounter Plan of Treatment Upcoming Encounters Date Type Department Care Team (Late st Contact Info) Description 03/16/2025 1:15 PM EDT Office Visit [facility] [address] [phone] Cali Mcgehe MD [address] [phone] documented as of this encounter Visit Diagnoses Diagnosis Hypertension documented in this encounter Care Teams Weight Shifter Relationship Specialty Start Date End Date Irene Grubbs MD [address] [place] [address] PCP - General Internal Medicine 01/02/24 documented as of this encounter
[2024-10-06 15:04] LABS: TSH reflex Free T4 0.56 uIU/mL (0.32-4.0)
== END 2024-10-06 09:58 | disposition home or self-care (01) ==
LOC: HO.CHCLDS 09:57
PROVIDERS: Visit Provider Internal Medicine
DX: E04.9 Nontoxic goiter, unspecified (principal)
CPT/HCPCS: 36415; 84443

== ENCOUNTER 2024-10-07 10:54 | Outpatient (REF) | payer MEDICAID, SELFPAY ==
--- NOTE | ~2024-10-07 | US_ITS ---
EXAMINATION: US THYROID CLINICAL INFORMATION: Fatigue. Enlarged thyroid gland. COMPARISON: None available. TECHNIQUE: Linear transducer grayscale and color Doppler examination with attention to the region of the thyroid. FINDINGS: SIZE: Measurements of the thyroid lobes and nodules are given in sagittal, anteroposterior and transverse dimensions respectively. Right Thyroid Lobe: 4.6 x 1.4 x 1.2 cm, volume 4 mL. Parenchyma: The gland echotexture is normal. Thyroid vascularity is normal. Left Thyroid Lobe: 4.2 x 1.4 x 1.6 cm, volume 5 mL. Parenchyma: The gland echotexture is normal. Thyroid vascularity is normal. Isthmus: 0.2 cm in maximum AP dimension. Estimated total number of nodules greater than or equal to 1 cm: 0/none. Sustainable Design Coordinator nodules are described as follows: NODES: No lymphadenopathy is seen in the tissue surrounding the thyroid gland. US/US thyroid IMPRESSION: No dominant nodules. Normal exam. ACR TI-RADS RECOMMENDATION REFERENCE: Ultrasound-guided fine-needle aspiration, followup ultrasound, no further follow up. * TR1 (0 point) and TR2 (2 points): No FNA or follow up. * TR3 (3 points): FNA if more than or equal to 2.5 cm in maximum dimension, followup ultrasound in 1, 3 and 5 years if 1.5 to 2.4 cm in maximum dimension. * TR4 (4-6 points): FNA if more than or equal to 1.5 cm in maximum dimension, followup ultrasound in 1, 2, 3 and 5 years if 1 to 1.4 cm in maximum dimension. * TR5 (more than or equal to 7 points): FNA if more than or equal to 1 cm in maximum dimension, followup ultrasound every year for 5 years if 0.5 to 0.9 cm in maximum dimension. * TR3, TR4 or TR5 nodules that are below the size threshold for followup receive no follow up. Electronically signed by: Meir Cline MD 10/13/2024 09:25 AM EST
--- OUTSIDE RECORDS SUMMARY | 2024-10-07 11:38 | XMS_ITS | Encounter Summary ---
Author Organization [employer] Address [address] [facility] 7 [place] [address] Care Team Providers Care Rental Clerk Tool [employer] Equipment Name Role Phone Irene Grubbs MD Primary Care Provider [phone]- [phone] Reason for Visit * Reason Comments Med Refill Encounter Details Date Type Department Care Team ([facility] st Contact Info) Description 01/22/2024 Refill [facility]ED[facility] [address] [place] [address] Irene Grubbs MD [address] [place] [address] Other asthma Social History Tobacco Use Types [...] Care Team (Late st Contact Info) Description 01/27/2025 2:30 PM EDT Office Visit [facility] [address] [place] [address] Philip, Destiny, OD [address] [place] [address] documented as of this encounter Visit Diagnoses Diagnosis Other asthma documented in this encounter Additional Health Concerns Assessment Noted Time PHQ-9 Depression Total Score: 9 01/06/20 24 4:06 PM EDT documented as of this encounter Care Teams Rental Clerk Tool And Equipment Relationship Specialty Start Date End Date Irene Grubbs MD [address] [place] [address] PCP - General Internal Medicine 07/02/19 documented as of this encounter
--- OUTSIDE RECORDS SUMMARY | 2024-10-07 11:38 | XMS_ITS | Encounter Summary ---
Author Organization [employer] Address [address] [facility] [address]t [place] [address] Care Team Providers Care Special Investigator Name Role Phone Irene Grubbs MD Primary Care Provider [phone] [phone] Encounter Details Date Type Department Care Team (Latest Contact Info) Description 10/07/2024 Travel Social History Tobacco Use Types Packs/Day [...] Description 01/27/2025 2:30 PM EDT Office Visit [facility] [address] [place], [place] [phone] Philip, Destiny, OD [address] [place] [address] documented as of this encounter Visit Diagnoses Not on filedocumented in this encounter Additional Health Concerns Assessment Noted Time PHQ-9 Depression Total Score: 10 024 3:48 PM EDT documented as of this encounter Care Teams Special Investigator Relationship Specialty Start Date End Date Irene Grubbs MD [address] [place] [phone] PCP - General Internal Medicine 07/02/19 documented as of this encounter
--- OUTSIDE RECORDS SUMMARY | 2024-10-07 11:38 | XMS_ITS | Encounter Summary ---
Author Organization [email or web address] Address [address] [facility] 7 [place] [address] Care Team Providers Care Clinical Phlebotomist Name Role Phone Irene Grubbs MD Primary Care Provider [phone]- [phone] Reason for Visit * Reason Onset Date Comments Med Refill 05/29/2024 Encounter Details Date Type Department Care Team (Late st Contact Info) Description 05/29/2024 Telephone [facility] [address] [place] [address] Irene Grubbs MD [address] [place] [address] Med Refill Social History Tobacco Use Types [...] Description 01/27/2025 2:30 PM EDT Office Visit [facility] [address] [place] [address] Philip, Destiny, OD [address] [place] [address] documented as of this encounter Visit Diagnoses Not on filedocumented in this encounter Additional Health Concerns Assessment Noted Time PHQ-9 Depression Total Score: 10 024 3:48 PM EDT documented as of this encounter Care Teams Clinical Phlebotomist Relationship Specialty Start Date End Date Irene Grubbs MD [address] [place] [address] PCP - General Internal Medicine 07/02/19 documented as of this encounter
--- OUTSIDE RECORDS SUMMARY | 2024-10-07 11:38 | XMS_ITS | Encounter Summary ---
Author Organization [employer] Address [address] [place] [address] [address] [address] Care Team Providers Care Workers Compensation Claims Examiner Name Role Phone Irene Grubbs MD Primary Care Provider [phone]- [phone] Reason for Referral * Consultation (Routine) - Authorized Specialty Diagnoses / Procedures Referred By Rosalia landers Referred To Contact Endocrinology Diagnoses High serum renin Irene Grubbs MD [address] [place] [address] Phone: tel: fax: Jose Acuna, DO [address] [place] [address] Phone: tel: fax: Referral ID Status Reason Start Date Expiration Date Visits Requested Visits Authorized [id number] Authorized Specialty Services Required 12/19/2023 12/18/2024 1 1 Encounter Details Date Type Department Care Team (Late st Contact Info) Description 12/19/2023 Orders Only [facility] PEDS [address] [place], [place] [phone] Irene Grubbs MD [address] [place] [phone] High serum renin (Primary Dx) Social History [...] Description 01/27/2025 2:30 PM EDT Office Visit [facility] OPT[facility] [address] [place] [address] Philip, Destiny, OD [address] [place] [address] Scheduled Referrals Name Type Priority Associated Diagnoses Order Schedule Referral to Endocrinology Outpatient Referral Routine High serum renin Expected: 12/19/2023 (Approximate), Expires: 12/18/2024 documented as of this encounter Visit Diagnoses Diagnosis High serum renin- Primary documented in this encounter Additional Health Concerns Assessment Noted Time PHQ-9 Depression Total Score: 7 11/07/19 24 3:57 PM EDT documented as of this encounter Care Teams Workers Compensation Claims Examiner Relationship Specialty Start Date End Date Irene Grubbs MD [address] [place] [address] PCP - General Internal Medicine 07/02/19 documented as of this encounter
--- OUTSIDE RECORDS SUMMARY | 2024-10-07 11:38 | XMS_ITS | Clinical Summary ---
Author Organization [employer] Address 75 [facility] 7t [place] [address] Care Team Providers Care Wrap Yarn Sorter Name Role Phone Irene Grubbs MD Primary Care Provider +1- [phone] Allergies Active Allergy Reactions Criticality Noted Date [...] Encounters Date Type Department Care Team Description 10/07/2024 10:00 AM EST Office Visit [facility] [address] [place] [address] Jaime Palaciosn, OD Myopia of both eyes (Primary Dx) 10/07/2024 Travel 09/28/2024 3:45 PM EST Office Visit [facility] [address] [place] [address] Irene Grubbs MD Enlarged thyroid (Primary Dx); Congested nose; Sore throat; Synovitis and tenosynovitis of left ankle and foot 09/28/2024 Travel 09/24/2024 Telephone [facility] [address] [place] [address] Irene Grubbs MD chart prep 09/15/2024 Telephone [facility] [address] [place] [address] Irene Grubbs MD Med Refill 09/03/2024 Refill [facility] [address] [place] [address] Irene Grubbs MD Fibromyalgia; Anxiety 09/01/2024 Refill [facility] [address] [place] [address] BotasRadha, HAM BONER 09/01/2024 Refill [facility] [address] [place] [address] [phone] Irene Grubbs MD Seasonal allergies; Other asthma 08/24/2024 Telephone [facility] [address] [place] [address] Irene Grubbs MD 08/17/2024 1:20 PM EST Office Visit [facility] [address] [place] [address] Irene Grubbs MD Shortness of breath; Asthma with acute exacerbation, unspecified asthma severity, unspecified whether persistent; Other asthma 08/17/2024 Telephone [facility] [address] [place] [address] Irene Grubbs MD recall appt (Pt needs [...] Description 01/27/2025 2:30 PM EDT Office Visit [facility] [address] [place], [place] [phone] Philip, Destiny, OD [address] [place] [address] Health Maintenance Due Date Last Done Comments Family Planning (PISQ) 2000 Hepatitis C Screening 2003 Hepatitis B Vaccines (1 of 3 - 19+ 3-dose series) 2004 Pneumococcal Vaccine: Pediatrics (0 to 5 Years) and At-Risk Patients (6 to 49) Years) (1 of 2 - PCV) 2004 Pap Smear 2006 Cervical Cancer Screening 2015 HPV/Cotest 2015 COVID-19 Vaccine (3 - 2023-2 5 season) 2024 06/23/2021, 06/02/2021 Influenza Vaccine (#1) 2024 Depression Monitoring (PHQ-9) 11/26/2024, 05/28/2024 SDOH Screening 12/22/2024 12/23/2023 Lipid Panel 04/20/2025 04/20/2020 Depression Screening 05/28/2025 05/28/2024, 05/28/2024 Alcohol/Substance Use Screening 06/10/2025 06/10/2024 Tobacco Screening 10/07/2025 10/07/2024 DTaP/Tdap/Td Vaccines (3 - T d or [...] Diagnosis Comments TSH W/REFLEX TO FT4 Routine 10/06/2024 9 :57 AM EST Enlarged thyroid POCT RAPID STREP A Routine 09/28/2024 4: [...] Recently Relevant to Health Maintenance Results * TSH W/Reflex to FT4 (10/06/2024 9:57 AM EST) [facility] TSH reflex Free T4 0.56 0.32 - 4.0 uIU/mL [facility] Blood Venous blood specimen / Unknown 10/06/2024 9:57 AM EST 10/06/2024 2:14 PM EST Irene Grubbs MD LAB BLOOD ORDERABLES Final Result [facility] [address] [place], [place] [phone] * POCT Rapid Influenza A OSOM (09/28/2024 4:40 PM EST) [facility] Rapid Influenza A Ag Negative Negative, Indeterminate QC Media Lot # [id number] Lot# Expiration Date Swab Nasopharyngeal structure / Unknown 09/28/2024 4:40 PM EST Irene Grubbs MD POINT OF CARE TEST ENTER/ED IT ORDERABLES Final Result * POCT Rapid Strep A OSOM (09/28/2024 4:40 PM EST) [facility] Rapid Strep A Screen Negative Negative, None Detected QC Media Lot # [id number] Lot# Expiration Date Swab 09/28/2024 4:40 PM EST us Irene Grubbs MD POINT OF CARE TEST ENTER/ED IT ORDERABLES Final Result * POCT Rapid Influenza B OSOM (09/28/2024 4:39 PM EST) [facility] Rapid Influenza B Ag Negative Negative, Indeterminate QC Media Lot # [id number] Lot# Expiration Date [id number] Swab 09/28/2024 4:39 PM EST us Irene Grubbs MD POINT OF CARE TEST ENTER/ED IT ORDERABLES Final Result * POCT Rapid Covid-19 BinaxNOW (09/28/2024 4:38 PM EST) Only the most recent of2 resultswithin the time period is included. [facility] Rapid COVID Ag Negative QC Media Lot # [id number] Lot# Expiration Date [id number] Swab 09/28/2024 4:38 PM EST us Irene Grubbs MD POINT OF CARE TEST ENTER/ED IT ORDERABLES Edited Result - Final * XR Chest 2 Views (08/17/2024 11:44 AM EST) Anatomical Region Laterality Modality Chest Radiographic Candice ging 08/17/2024 11:4 4 AM EST Narrative 08/17/2024 12:20 PM EST ?[facility] ?[address] ?[place] [address] ?XRay Report ? Signed ? Patient: Pruett,Limaries ?MR#: [id number] ?? [id number] ? : 1985 ?Acct:[id number] ? Age/Sex: 38 / F ?ADM Date: 12/30/24 ? Loc: HO.HHCX ? Attending Dr: Irene Grubbs MD ? Ordering Physician: Irene Grubbs MD ?? Date of Service: 08/17/24 ?? Procedure(s): XR chest 2V ?? Accession Number(s): [id number] ? cc: Irene Grubbs MD ? EXAMINATION: [...] 12:17 PM EST RP ? Dictated By: ?Darien Bee MD ? Signed By: ?<Electronically signed by Darien Bee MD in OV> ?08/17/24 1217 ? DD/ 1144 ? TD/TT: 08/17/24 1150 ? Test Boring Crew Chief: MSM ? Procedure Note Donotuseinterpreter, Image - 08/17/2024 [place] [address] XRay Report Signed Patient: María Elena PruettMR#: [id number] : 1985Acct:[id number] Age/Sex: 38 / FADM Date: 08/17/24 Loc: HO.HHCX Attending Dr: Irene Grubbs MD Ordering Physician: Irene Grubbs MD Date of Service: 08/17/24 Procedure(s): XR chest 2V Accession Number(s): [id number] cc: Irene Grubbs MD EXAMINATION: XR CHEST CLINICAL INFORMATION: Cough x 3 weeks. COMPARISON: None available. TECHNIQUE: 2 views of the chest were obtained. FINDINGS: No significant abnormality is noted involving the heart, lungs, mediastinum, bony thorax or soft tissues. XR/XR chest 2V IMPRESSION: Unremarkable chest examination. Electronically signed by: Darien Bee MD 08/17/2024 12:17 PM [facility] Dictated By: Darien Bee MD Signed By: <Electronically signed by Darien Bee MD in OV> 08/17/24 1217 DD/ 1144 TD/TT: 08/17/24 1150 Test Boring Crew Chief: MSM us Irene Grubbs MD IMG XR PROCEDURES Final Res ult * Influenza B (ID NOW Rapid Molecular) (08/17/2024 11:40 AM EST) Influenza B Negative Negative, Indeterminate [facility] Swab 08/17/2024 11:4 0 AM EST us Irene Grubbs MD POINT OF CARE TEST ENTER/ED IT ORDERABLES Final Result Performing Organization Address City/[facility]/ZIP Co de Phone Number [facility] [address] [place] [phone] * Influenza A (ID NOW Rapid Molecular) (08/17/2024 11:40 AM EST) Influenza A Negative Negative, Indeterminate [facility] Swab 08/17/2024 11:4 0 AM EST us Irene Grubbs MD POINT OF CARE TEST ENTER/ED IT ORDERABLES Final Result Performing Organization Address City/[facility]/ZIP Co de Phone Number [facility] [address] [place] [phone] * HIV 1/2 ANTIGEN/ANTIBODY,FOURTH GENERATION W/RFL (02/08/2021 11:38 AM EDT) HIV-1/2 ANTIGEN AND ANTIBODIES, 4TH GENERATION W/ REFLEX NON-REACT MICHELLE NON-REACT MICHELLE [facility] Comment: HIV-1 antigen and HIV-1/HIV-2 [...] ? For additional information please refer to http://education.TuneGO/faq/EFN634 (This link is being provided for informational/ educational purposes only.) ? The performance of this assay has not been clinically validated in patients less than 2 years old. ?? 02/08/2021 11:3 8 AM EDT us Irene Grubbs MD LAB BLOOD ORDERABLES Final Result [facility] [address] * (ABNORMAL) LIPID PANEL, STANDARD (04/20/2020 11:23 AM EDT) Pathologist [facility] Cholesterol, Total 139 <200 mg/dL [facility] LDL Cholesterol 74 mg/dL (calc) [facility] Comment: Reference range: <100 ?? Desirable range <100 mg/dL for primary prevention; ?? <70 mg/dL for patients with CHD or diabetic patients ?? with > or = 2 CHD risk factors. ?? LDL-C is now calculated using the Osmin-Joelle ?? calculation, which is a validated novel method providing ?? better accuracy than the Friedewald equation in the ?? estimation of LDL-C. ?? Osmin BRANDON et al. AMOL. 2013;310(19): 5234-4923 ?? (http://Limitlesslane.boaconsulta.com/faq/SXU506) HDL Cholesterol 41(L) > OR = 50 [...] ?? LDL-C is now calculated using the Pierre ?? calculation, which is a validated novel method providing ?? better accuracy than the Friedewald equation in the ?? estimation of LDL-C. ?? Osmin BRANDON et al. AMOL. 2013;310(19): 7241-6393 ?? (http://education.Visure Solutions.Sapphire Innovation/faq/XCN402) 04/20/2020 11:2 3 AM EDT us Irene Grubbs MD LAB BLOOD ORDERABLES Final Result [facility] [address] from Last 3 Months or Most Recently Relevant to Health Maintenance [facility] Care Teams Wrap Yarn Sorter Relationship Specialty Start Date End Date Irene Grubbs MD [address] [place] [phone] PCP - General Internal Medicine 07/02/19
--- OUTSIDE RECORDS SUMMARY | 2024-10-07 11:38 | XMS_ITS | Clinical Summary ---
Author Organization [facility] Address [address] [phone] Phone Care Team Providers Care Cook At School Name Role Phone Irene Grubbs MD Primary [...] Of [place] [address] [place] [phone] Cali Mcghee MD Hypertension 09/15/2024 2:15 PM EST Office Visit [facility] [address] [facility] [address] [place] [address] Cali Mcghee MD Hypertension (Primary Dx) 08/28/2024 Orders Only [facility] [address] [facility] [address] [place] [phone] Cali Mcghee MD Hypertension 07/31/2024 Orders Only [facility] [address] [facility] 200 [place] [phone] Cali Mcghee MD Hypertension from Last 3 [...] Office Visit [facility] [address] [phone] Cali Mcghee MD [address] [phone] Health Maintenance Due Date Last Done Comments [...] Urine 0-5 0 - 5 /hpf [facility] RBC, Urine None seen 0 - 2 /hpf [facility] Squamous Epithelial, Urine >10(A) 0 - 10 /hpf [facility] Casts None seen None seen /lpf [facility] Bacteria, Urine Moderate(A ) None seen/Few [facility] 09/07/2024 2:10 PM EST 09/07/2024 Cali Mcghee MD LAB MICROBIOLOGY - NERID ORDERABLES Final Result [facility] [address] [place] [address] * Protein, Total, Random Urine w/Creatinine (Protein/Creat Ratio) (09/07/2024 2:10 PM EST) Creatinine, Ur 133.7 Not Estab. mg/dL [facility] Protein, Ur 10.1 Not Estab. mg/dL [facility] Urine Protein/Creatin ine Ratio 76 0 - 200 mg/g creat [facility] Urine (Urine, Clean Catch) 09/07/2024 2:10 PM EST 09/07/2024 us Cali Mcghee MD LAB URINE ORDERABLES Final Result [facility] [address] [place] [address] * Urinalysis with microscopic (09/07/2024 2:10 PM EST) Specific [place], Urine 1.021 1.005 - 1.030 [facility] pH Urine 6.5 5.0 - 7.5 [facility] Color, Urine Yellow Yellow [facility] Appearance Urine Clear Clear [facility] [place] WBC Esterase Urine Negative Negative [facility] Protein, Ur Negative Negative/Tra ce [facility] Glucose, Ur Negative Negative [facility] Ketones, Urine Negative Negative [facility] Blood Urine Negative Negative [facility] Bilirubin Urine Negative Negative [facility] Urobilinogen Urine 0.2 0.2 - 1.0 mg/dL [facility] Nitrite, Urine Negative Negative [facility] [phone] Microscopic Examination Comment [facility] Comment:Microscopic follows if indicated. Other Microsc. Observations See below: [facility] Comment:Microscopic was chrissie cated and was performed. Urine (Urine, Clean Catch) 09/07/2024 2:10 PM EST 09/07/2024 us Cali Mcghee MD LAB URINE ORDERABLES Final Result [facility] [phone] [address] [place] [address] * Magnesium (09/07/2024 2:10 PM EST) Magnesium 2.0 1.6 - 2.3 mg/dL [facility] Blood (Blood, Venous) 09/07/2024 2:10 PM EST 09/07/2024 Cali Mcghee MD LAB BLOOD ORDERABLES Final Result [facility] [address] [place] [address] from Last 3 Months Insurance MEDICAID [place] Care Teams Cook At School Relationship Specialty Start Date End Date Irene Grubbs MD [address] [place] [address] [phone] PCP - General Internal Medicine 01/02/24
--- OUTSIDE RECORDS SUMMARY | 2024-10-07 11:38 | XMS_ITS | Encounter Summary ---
Author Organization [employer] Address 75 [facility] 7 [place] [address] Care Team Providers Care Press Bucker Name Role Phone Irene Grubbs MD Primary Care Provider +1- [phone] Reason for Visit * Reason Onset Date Comments Medication Question 03/10/2024 Encounter Details Date Type Department Care Team (Late st Contact Info) Description 03/10/2024 Telephone [facility] [address] [place] [address] Irene Grubbs MD [address] [place] [address] Medication Question Social History Tobacco Use Types [...] No answer. LVM to call back on [phone]. * Telephone Encounter - Nathaniel Reed - 03/10/2024 12:45 PM EDT Tc from pt requesting a call from a nurse to see if pcp could prescribe Flexeril instead of currentmed due to current med not working documented in this encounter Plan of Treatment Upcoming Encounters Date Type Department Care Team (Late st Contact Info) Description 01/27/2025 2:30 PM EDT Office Visit [facility] [address] [place] [address] Philip, Destiny, OD [address] [facility] [place] [address] documented as of this encounter Visit Diagnoses Not on filedocumented in this encounter Additional Health Concerns Assessment Noted Time PHQ-9 Depression Total Score: 9 01/06/20 24 4:06 PM EDT documented as of this encounter Care Teams Press Bucker Relationship Specialty Start Date End Date Irene Grubbs MD [address] [place] [phone] PCP - General Internal Medicine 07/02/19 documented as of this encounter
--- OUTSIDE RECORDS SUMMARY | 2024-10-07 11:38 | XMS_ITS | Encounter Summary ---
Author Organization [facility] Address [address] [facility] [address] [address] Phone Care Team Providers Care Room Service Waiter Name Role Phone Irene Grubbs MD Primary Care Provider [phone]- [phone] Encounter Details Date Type Department Care Team (Late st Contact Info) Description 09/25/2024 Orders Only [facility] [address] [phone] Cali Mcghee MD [address] [address] Hypertension Social History Tobacco Use [...] Visit [facility] [address] [phone] Cali Mcghee MD [address] [address] documented as of this encounter Visit Diagnoses Diagnosis Hypertension documented in this encounter Care Teams Room Service Waiter Relationship Specialty Start Date End Date Irene Grubbs MD [address] [place] [phone] PCP - General Internal Medicine 01/02/24 documented as of this encounter
--- OUTSIDE RECORDS SUMMARY | 2024-10-07 11:38 | XMS_ITS | Encounter Summary ---
Author Organization [employer] Address 75 [facility] 7t [place] [address] Care Team Providers Care Salicylic Acid Blender Name Role Phone Irene Grubbs MD Primary Care Provider +1- [phone] Reason for Visit * Reason Comments Blurred Vision Encounter Details Date Type Department Care Team ([facility] st Contact Info) Description 10/07/2024 10:00 AM EST Office Visit [facility] [address] [place] [address] Philip, Destiny, OD [address] [place] [address] Myopia of both eyes (Primary Dx) Social History Tobacco Use Types [...] Description 01/27/2025 2:30 PM EDT Office Visit [facility] [address] [place] [address] Philip, Destiny, OD [address] [place] [address] documented as of this encounter Visit Diagnoses Diagnosis Myopia of both eyes- Primary documented in this encounter Additional Health Concerns Assessment Noted Time PHQ-9 Depression Total Score: 10 024 3:48 PM EDT documented as of this encounter Care Teams Salicylic Acid Blender Relationship Specialty Start Date End Date Irene Grubbs MD [address] [place] [address] PCP - General Internal Medicine 07/02/19 documented as of this encounter
--- OUTSIDE RECORDS SUMMARY | 2024-10-07 11:38 | XMS_ITS | Encounter Summary ---
Author Organization [employer] Address 75 [facility] 7t [place] [address] Care Team Providers Care Reservation Manager Name Role Phone Irene Grubbs MD Primary Care Provider Encounter Details Date Type Department Care Team ([facility] Contact Info) Description 02/04/2023 Orders Only [facility] [address] [place], [place] [phone] Irene Grubbs MD [address] [place] [address] Low TSH level (Primary Dx); Positive RU [...] Department Care Team (Late Contact Info) Description 01/27/2025 2:30 PM EDT Office Visit [facility] [address] [place], [place] [phone] Philip, Destiny, OD [address] [place] [address] Scheduled Orders Name Type Priority Associated Diagnoses [...] T4, Free 1.3 0.8 - 1.8 ng/dL [employer] [place] [facility] [facility] 02/06/2023 3:58 PM EDT 02/06/2023 3:58 PM EDT Narrative [facility] - 02/07/2023 5:10 AM EDT FASTING:NO FASTING: NO us Irene Grubbs MD LAB BLOOD ORDERABLES Final Result [facility] [address], [place] [address] [employer] [place] [employer] [address] [place] [address] * (ABNORMAL) TSH W/Reflex to FT4 (02/06/2023 3:58 PM EDT) TSH w/Reflex to FT4 0.32(L) mIU/L [facility] Comment: ?Reference Range ?> or = 20 Years ??0.40-4.50 ? Ranges ?First trimester ?0.26-2.66 ?Second trimester ?? 0.55-2.73 ?Third trimester ?0.43-2.91 Blood 02/06/2023 3:58 PM EDT 02/06/2023 3:58 PM EDT Narrative [facility] - 02/07/2023 5:10 AM EDT FASTING:NO FASTING: NO us Irene Grubbs MD LAB BLOOD ORDERABLES Final Result [facility] [address] [place] [address], [place] [address] [employer] [facility] [address] [place] [address] documented in this encounter Visit Diagnoses Diagnosis Low TSH level- Primary Positive RU (antinuclear antibody) Other and unspecified nonspecific immunological findings documented in this encounter Additional Health Concerns Assessment Noted Time PHQ-9 Depression Total Score: 9 10/23/19 23 4:00 PM EST documented as of this encounter Care Teams Reservation Manager Relationship Specialty Start Date End Date Irene Grubbs MD [address] [place] [phone] PCP - General Internal Medicine 07/02/19 documented as of this encounter
--- OUTSIDE RECORDS SUMMARY | 2024-10-07 11:38 | XMS_ITS | Encounter Summary ---
Author Organization [employer] Address 75 [facility] [address] [address] Care Team Providers Care Concert Singer Name Role Phone Irene Grubbs MD Primary Care Provider [phone]- [phone] Reason for Visit * Reason Onset Date Comments chart prep 09/24/2024 Encounter Details Date Type Department Care Team ([facility] st Contact Info) Description 09/24/2024 Telephone [facility] [address] [place] [address] Irene Grubbs MD [address] [place] [address] chart prep Social History Tobacco Use Types [...] [facility] [address] [place] [address] PhilipDestiny jiang, OD [address] [place] [address] documented as of this encounter Visit Diagnoses Not on filedocumented in this encounter Additional Health Concerns Assessment Noted Time PHQ-9 Depression Total Score: 10 024 3:48 PM EDT documented as of this encounter Care Teams Concert Singer Relationship Specialty Start Date End Date Irene Grubbs MD [address] [place] [address] PCP - General Internal Medicine 07/02/19 documented as of this encounter
--- OUTSIDE RECORDS SUMMARY | 2024-10-07 11:38 | XMS_ITS | Encounter Summary ---
Author Organization [employer] Address 75 [facility] 7t [place] [address] Care Team Providers Care Pediatric Nurse Practitioner Name Role Phone Irene Grubbs MD Primary Care Provider +1- [phone] Encounter Details Date Type Department Care Team ([facility] st Contact Info) Description 09/20/2023 Orders Only [facility] [address] [place], [place] [phone] Irene Grubbs MD [address] [place] [address] Hypokalemia (Primary Dx) Social History Tobacco Use [...] Description 01/27/2025 2:30 PM EDT Office Visit [facility] [address] [place] [address] Philip, Destiny, OD [address] [place] [address] documented as of this encounter Procedures Procedure Name Priority Date/Time Associated Diagnosis Comments BASIC METABOLIC PANEL Routine 09/24/2023 8:03 AM EST Hypokalemia documented in this encounter Results * (ABNORMAL) Basic Metabolic Panel (09/24/2023 8:03 AM EST) Sodium 139 135 - 145 mmol/L [facility] Potassium 3.8 3.3 - 5.1 mmol/L [facility] Chloride 102 96 - 108 mmol/L [facility] Carbon Dioxide 28 22 - 29 mmol/L [facility] Anion Gap 13 12 - 20 [facility] Urea Nitrogen (BUN) 15 9 - 16 mg/dL [facility] Creatinine, Serum 0.73 0.5 - 1.4 mg/dL [facility] Estimated Glomerular Filt Rate >60 [facility] Comment:NOTE: For -Am erican individuals, multiply the result by 1.210.Chronic Kidney Disease: Estimated GFR < 60 mL/min/1.57n7Worlpx Kidney Disease: Estimated GFR < 15 mL/min/1.73m2 Glucose 150(H) 60 - 115 mg/dL [facility] Calcium 9.5 8.4 - 10.2 mg/dL [facility] Blood Venous blood specimen / Unknown 09/24/2023 8:03 AM EST 09/24/2023 11:12 AM EST Irene Grubbs MD LAB BLOOD ORDERABLES Final Result Performing Organization Address City/State/[facility] Co de Phone Number [facility] [address] [place] [address] [phone] documented in this encounter Visit Diagnoses Diagnosis Hypokalemia- Primary Hypopotassemia documented in this encounter Additional Health Concerns Assessment Noted Time PHQ-9 Depression Total Score: 8 08/22/19 24 4:08 PM EST documented as of this encounter Care Teams Pediatric Nurse Practitioner Relationship Specialty Start Date End Date Irene Grubbs MD [address] [place] [address] PCP - General Internal Medicine 07/02/19 documented as of this encounter
--- OUTSIDE RECORDS SUMMARY | 2024-10-07 11:38 | XMS_ITS | Encounter Summary ---
Author Organization [employer] Address [address] [facility] [address] [address] Care Team Providers Care Hemstitcher Name Role Phone Irene Grubbs MD Primary Care Provider [phone]- [phone] Reason for Visit * Reason Onset Date Comments Med Refill 09/15/2024 Encounter Details Date Type Department Care Team ([facility] st Contact Info) Description 09/15/2024 Telephone [facility] CHC MED & PEDS [address] [place] [address] Irene Grubbs MD [address] [place] [address] Med Refill Social History Tobacco Use Types [...] Description 01/27/2025 2:30 PM EDT Office Visit [facility] OPTOMETRY [address] [place] [address] PhilipDestiny jiang, OD [address] [place] [address] documented as of this encounter Visit Diagnoses Not on filedocumented in this encounter Additional Health Concerns Assessment Noted Time PHQ-9 Depression Total Score: 10 024 3:48 PM EDT documented as of this encounter Care Teams Hemstitcher Relationship Specialty Start Date End Date Irene Grubbs MD [address] [place] [address] PCP - General Internal Medicine 07/02/19 documented as of this encounter
--- OUTSIDE RECORDS SUMMARY | 2024-10-07 11:38 | XMS_ITS | Encounter Summary ---
Author Organization [employer] Address [address] [facility] 7[place], [place] [address] Care Team Providers Care Keeper Helper Name Role Phone Irene Grubbs MD Primary Care Provider [phone]- [phone] Reason for Visit * Reason Onset Date Comments Med Refill 07/03/2023 Encounter Details Date Type Department Care Team ([facility] st Contact Info) Description 07/03/2023 Telephone [facility] CHC MED & PEDS [address] [place] [address] Irene Grubbs MD [address] [place] [address] Med Refill Social History Tobacco Use Types [...] 100 MG capsule to be sent to [id number] AT [facility] documented in this encounter Plan of Treatment Upcoming Encounters Date Type Department Care Team (Late st Contact Info) Description 01/27/2025 2:30 PM EDT Office Visit [facility] OPTOMETRY [address] [place] [address] Philip, Destiny, OD [address] [place] [address] documented as of this encounter Visit Diagnoses Not on filedocumented in this encounter Additional Health Concerns Assessment Noted Time PHQ-9 Depression Total Score: 13 023 11:25 AM EDT documented as of this encounter Care Teams Keeper Helper Relationship Specialty Start Date End Date Irene Grubbs MD [address] [place] [address] PCP - General Internal Medicine 07/02/19 documented as of this encounter
--- OUTSIDE RECORDS SUMMARY | 2024-10-07 11:38 | XMS_ITS | Encounter Summary ---
Author Organization [employer] Address [address] [place] [address] [address] [address] Care Team Providers Care Dehydration Plant Operator Name Role Phone Irene Grubbs MD Primary Care Provider [phone]- [phone] Reason for Referral * Imaging (Routine) - Authorized Specialty Diagnoses / Procedures Referred By Contdenisse t Referred To Contact Radiology Diagnoses Enlarged thyroid Procedures US Thyroid Irene Grubbs MD [address] [place] [address] Phone: tel: fax: [address] Phone: tel: fax: Referral ID Status Reason Start Date Expiration Date V isits Requested Visits Authorized [id number] Authorized 09/28/2024 09/28/2025 1 1 Reason for Visit * Reason Comments Hypertension Nasal Congestion Handicap placard Encounter Details Date Type Department Care Team (Latest Contact Info) Description 09/28/2024 3:45 PM EST Office Visit [facility] CHC MED & PEDS [address] [place], [place] [phone] Irene Grubbs MD [address] [place] [address] Enlarged thyroid (Primary Dx); Congested nose; Sore [...] the evaluation today. Was evaluated by her crisis intervention counselor on September 15, 2024 who recommended a [...] negative Supportive care recommended: Fluids, rest, Tylenol [id number] Call the office as needed Orders: - POCT Rapid Covid-19 BinaxNOW - POCT Rapid Influenza B OSOM - POCT Rapid Influenza A OSOM Sore throat Comments: Gargle with warm salt water Tylenol [id number] recommended Orders: - POCT Rapid Strep A [...] Office Visit [facility] OPTOMETRY [address] [place] [address] [phone] Destiny Palacios, OD [address] [facility] [place] [address] Scheduled Orders Name Type Priority Associated Diagnoses Orde r Schedule US Thyroid Imaging Routine Enlarged thyroid Expected: 09/28/2024, Expires: 09/28/2025 documented as of this encounter Procedures Procedure Name Priority Date/Time Associated Diagnosis Comments TSH W/REFLEX TO FT4 Routine 10/06/2024 9 :57 AM EST Enlarged thyroid POCT INFLUENZA A Routine 09/28/2024 4:40 PM EST Congested nose POCT RAPID STREP A Routine 09/28/2024 4: 40 PM EST Sore throat POCT INFLUENZA B Routine 09/28/2024 4:39 PM EST Congested nose POCT RAPID COVID ANTIGEN Routine 09/28/2024 4:38 PM EST Congested nose documented in this encounter Results * TSH W/Reflex to FT4 (10/06/2024 9:57 AM EST) Pathologist [facility] TSH reflex Free T4 0.56 0.32 - 4.0 uIU/mL [facility] Blood Venous blood specimen / Unknown 10/06/2024 9:57 AM EST 10/06/2024 2:14 PM EST Irene Grubbs MD LAB BLOOD ORDERABLES Final Result [facility] [address] [place] [address] [phone] * POCT Rapid Strep A OSOM (09/28/2024 4:40 PM EST) Rapid Strep A Screen Negative Negative, None Detected QC Media Lot # [id number] Lot# Expiration Date ,[id number] Swab 09/28/2024 4:40 PM EST Irene Grubbs MD POINT OF CARE TEST ENTER/ED IT ORDERABLES Final Result * POCT Rapid Influenza A OSOM (09/28/2024 4:40 PM EST) [facility] Rapid Influenza A Ag Negative Negative, Indeterminate QC Media Lot # [id number] Lot# Expiration Date Swab Nasopharyngeal structure / Unknown 09/28/2024 4:40 PM EST Irene Grubbs MD POINT OF CARE TEST ENTER/ED IT ORDERABLES Final Result * POCT Rapid Influenza B OSOM (09/28/2024 4:39 PM EST) [facility] Rapid Influenza B Ag Negative Negative, Indeterminate QC Media Lot # [id number] Lot# Expiration Date Swab 09/28/2024 4:39 PM EST Irene Grubbs MD POINT OF CARE TEST ENTER/ED IT ORDERABLES Final Result * POCT Rapid Covid-19 BinaxNOW (09/28/2024 4:38 PM EST) [facility] Rapid COVID Ag Negative QC Media Lot # [id number] Lot# Expiration Date [id number] Swab 09/28/2024 4:38 PM EST Irene Grubbs [...] documented as of this encounter Care Teams Dehydration Plant Operator Relationship Specialty Start Date End Date Irene Grubbs MD [address] [place] [address] PCP - General Internal Medicine 07/02/19 documented as of this encounter
--- OUTSIDE RECORDS SUMMARY | 2024-10-07 11:38 | XMS_ITS | Encounter Summary ---
Author Organization [employer] Address [address] [facility] 7 [place] [address] Care Team Providers Care Finishing Machine Operator Automatic Name Role Phone Irene Grubbs MD Primary Care Provider [phone] Reason for Visit * Reason Onset Date Comments Referral 06/06/2023 Encounter Details Date Type Department Care Team ([facility] st Contact Info) Description 06/06/2023 Telephone [facility] CHC MED & PEDS [address] [place], [place] [phone] Irene Grubbs MD [address] [place] [address] Referral Social History Tobacco Use Types Packs/Day [...] Description 01/27/2025 2:30 PM EDT Office Visit [facility] OPTOMETRY [address] [place] [address] Philip, Destiny, OD [address] [place] [address] documented as of this encounter Visit Diagnoses Not on filedocumented in this encounter Additional Health Concerns Assessment Noted Time PHQ-9 Depression Total Score: 5 04/29/20 23 11:15 AM EDT documented as of this encounter Care Teams Finishing Machine Operator Automatic Relationship Specialty Start Date End Date Irene Grubbs MD [address] [place] [address] PCP - General Internal Medicine 07/02/19 documented as of this encounter
--- OUTSIDE RECORDS SUMMARY | 2024-10-07 11:38 | XMS_ITS | Encounter Summary ---
Author Organization [employer] Address 75 [facility] 7t [place] [address] Care Team Providers Care Auto Inspection Specialist Name Role Phone Irene Grubbs MD Primary Care Provider [phone] Reason for Visit * Reason Onset Date Comments Letter for School/Work 08/07/2023 Encounter Details Date Type Department Care Team ([facility] st Contact Info) Description 08/07/2023 Telephone [facility] MEDICINE [address] [place] [address] Irene Grubbs MD [address] [place] [address] Letter for School/Work Social History Tobacco Use [...] If any question please contact pt in [email or web address] for clarifications. documented in this encounter Plan of Treatment Upcoming Encounters Date Type Department Care Team (Late st Contact Info) Description 01/27/2025 2:30 PM EDT Office Visit [facility] OPTOMETRY [address] [place] [address] Philip, Destiny, OD [address] [place] [address] documented as of this encounter Visit Diagnoses Not on filedocumented in this encounter Additional Health Concerns Assessment Noted Time PHQ-9 Depression Total Score: 13 023 11:25 AM EDT documented as of this encounter Care Teams Auto Inspection Specialist Relationship Specialty Start Date End Date Irene Grubbs MD [address] [place] [address] PCP - General Internal Medicine 07/02/19 documented as of this encounter
--- OUTSIDE RECORDS SUMMARY | 2024-10-07 11:38 | XMS_ITS | Encounter Summary ---
Author Organization [employer] Address [address] [facility] 7t [place] [address] Care Team Providers Care Coach Wirer Name Role Phone Irene Grubbs MD Primary Care Provider [phone] Encounter Details Date Type Department Care Team [...] Description 01/27/2025 2:30 PM EDT Office Visit [facility] OPTOMETRY [address] [place], [place] [phone] Philip, Destiny, OD [address] [place] [address] documented as of this encounter Visit Diagnoses Not on filedocumented in this encounter Additional Health Concerns Assessment Noted Time PHQ-9 Depression Total Score: 10 024 3:48 PM EDT documented as of this encounter Care Teams Coach Wirer Relationship Specialty Start Date End Date Irene Grubbs MD [address] [place] [address] PCP - General Internal Medicine 07/02/19 documented as of this encounter
--- OUTSIDE RECORDS SUMMARY | 2024-10-07 11:38 | XMS_ITS | Clinical Summary ---
Author Organization [facility] Address [address] [place] [address] Care Team Providers Care Fuel Cell Repairer Name Role Phone Liyah Cummings MD Primary Care Provider [phone] Surgical History Surgery Date Site/Laterality Comments SECTION [...] age to complete this topic Care Teams Fuel Cell Repairer Relationship Specialty Start Date End Date Liyah Cummings MD [address] [place] [phone] PCP - General 09/30/14
--- OUTSIDE RECORDS SUMMARY | 2024-10-07 11:38 | XMS_ITS | Encounter Summary ---
Author Organization [employer] Address [address] [facility] 7 [place] [address] Care Team Providers Care Clubhouse Manager Name Role Phone Irene Grubbs MD Primary Care Provider [phone] Reason for Visit * Reason Comments Med Refill Encounter Details Date Type Department Care Team ([facility] st Contact Info) Description 09/03/2024 Refill [facility] CHC MED & PEDS [address] [place] [address] Irene Grubbs MD [address] [place] [address] Fibromyalgia; Anxiety Social History Tobacco Use Types [...] Description 01/27/2025 2:30 PM EDT Office Visit [facility] OPTOMETRY [address] [place] [address] Philip, Destiny, OD [address] [place] [address] documented as of this encounter Visit Diagnoses Diagnosis Fibromyalgia Unspecified myalgia and myositis Anxiety Anxiety state, unspecified documented in this encounter Additional Health Concerns Assessment Noted Time PHQ-9 Depression Total Score: 10 024 3:48 PM EDT documented as of this encounter Care Teams Clubhouse Manager Relationship Specialty Start Date End Date Irene Grubbs MD [address] [place] [address] PCP - General Internal Medicine 07/02/19 documented as of this encounter
--- OUTSIDE RECORDS SUMMARY | 2024-10-07 11:38 | XMS_ITS | Encounter Summary ---
Author Organization [facility] Address [address] [place] [address] [address], [place] [address] Care Team Providers Care Dental Hygiene Administrative Assistant Name Role Phone Irene Grubbs MD Primary Care Provider [phone] Reason for Referral * Imaging (Routine) - Denied Specialty Diagnoses / Procedures Referred By Rosalia t Referred To Contact Radiology Diagnoses Resistant hypertension Procedures US RENAL ARTERY DOPPLER BILATERAL Irene Grubbs MD [address] [place] [address] Phone: tel: fax: [address] Phone: tel: fax: Referral ID Status Reason Start Date Expiration Date Visits Re quested Visits Authorized [id number] Denied 11/28/2023 11/27/2024 1 0 * Imaging (Routine) - Denied Specialty Diagnoses / Procedures Referred By Contac t Referred To Contact Radiology Diagnoses Resistant hypertension Procedures US RENAL BI Irene Grubbs MD [address] [place] [address] Phone: tel: fax: [address] Phone: tel: fax: Referral ID Status Reason Start Date Expiration Date Visits Re quested Visits Authorized [id number] Denied 11/28/2023 11/27/2024 1 0 Encounter Details Date Type Department Care Team ([facility] st Contact Info) Description 11/28/2023 Orders Only [facility] CHC MED & PEDS [address] [place] [address] Irene Grubbs MD [address] [place] [address] Resistant hypertension (Primary Dx) Social History Tobacco [...] Description 01/27/2025 2:30 PM EDT Office Visit [facility] OPTOMETRY [address] [place], [place] [phone] PhilipDestiny jiang, OD [address] [place] [address] Scheduled Orders Name Type Priority Associated Diagnoses [...] as of this encounter Care Teams Dental Hygiene Administrative Assistant Relationship Specialty Start Date End Date Irene Grubbs MD [address] [place] [address] PCP - General Internal Medicine 07/02/19 documented as of this encounter
--- OUTSIDE RECORDS SUMMARY | 2024-10-07 11:38 | XMS_ITS | Encounter Summary ---
Author Organization [facility] Address [address] [address] Phone Care Team Providers Care Folder Machine Operator Name Role Phone Irene Grubbs MD Primary Care Provider [phone] Reason for Referral * Imaging (Routine) - Pending Review Specialty Diagnoses / Procedures Referred By Rosalia landers Referred To Contact Diagnoses Hypertension Procedures Renal Artery Duplex Cali Mcghee MD [address] [address] Phone: tel: fax: Referral ID Status Reason Start Date Expiration Date V isits Requested Visits Authorized [id number] Pending Review 09/15/2024 09/15/2025 1 1 Reason for Visit * Reason Comments Hypertension Encounter Details Date Type Department Care Team ([facility] st Contact Info) Description 09/15/2024 2:15 PM EST Office Visit [facility] [address] [address] Cali Mcghee MD [address] [address] Hypertension (Primary Dx) Social History [...] Allergy List Allergies Allergen Reactions Aspirin Hives Lultilx-Kxps-Geqtnaw [Alitraq] Chocolate Hazelnut Flavor [Flavoring Agent (Non-Screening)] [...] Visit [facility] [address]. [address] [phone] Cali Mcghee MD [address] [phone] Scheduled Orders Name Type Priority Associated Diagnoses [...] Primary documented in this encounter Care Teams Folder Machine Operator Relationship Specialty Start Date End Date Irene Grubbs MD [address] [place] [address] PCP - General Internal Medicine 01/02/24 documented as of this encounter
== END 2024-10-07 10:55 | disposition home or self-care (01) ==
LOC: HO.HMGCX 10:54
PROVIDERS: PCP Internal Medicine; Visit Provider Internal Medicine
DX: E04.9 Nontoxic goiter, unspecified (principal)
CPT/HCPCS: 76536

== ENCOUNTER → 2024-10-07 10:55 | Outpatient (BNV) | payer MEDICAID, SELFPAY | PROVIDERS: PCP Internal Medicine; Visit Provider Radiology Diagnostic Radiology | DX: E04.9 Nontoxic goiter, unspecified (principal); R53.83 Other fatigue | CPT/HCPCS: 76536 ==

== ENCOUNTER 2025-07-14 10:21 | Outpatient (REF) | payer MEDICAID, SELFPAY ==
--- OUTSIDE RECORDS SUMMARY | 2025-07-13 16:00 | XMS_ITS | Encounter Summary ---
Author Organization [employer] Address [address] [facility] 7t [place] [address] Care Team Providers Care Bi Report Developer Name Role Phone Irene Grubbs MD Primary Care Provider Encounter Details Date Type Department Care Team ([facility] st Contact Info) Description 07/13/2025 4:00 PM EST Office Visit [facility] CHC MED & PEDS [address] [place], [place] [phone] Irene Grubbs MD [address] [place] [address] Other fatigue (Primary Dx); Folliculitis; Primary hypertension Social History Tobacco Use Types Packs/Day Years Used Date Smoking Tobacco: Never Passive Smoke Exposure: Never Smokeless Tobacco: Never Depression Answer Date [...] Sign Reading Time Taken Comments Blood Pressure 139/85 07/13/2025 4:23 PM EST Pulse 76 07/13/2025 4:23 PM EST Temperature 36.8 C (98.2 F) 07/13/2025 4:23 PM EST Respiratory Rate 20 07/13/2025 4:23 PM EST Oxygen Saturation - - Inhaled Oxygen Concentration - - Weight 71.2 kg (157 lb) 07/13/2025 4:23 PM EST Height 160 cm (5' 3 ) 07/13/2025 4:23 PM EST Body Mass Index 27.81 07/13/2025 4:23 PM EST documented in this encounter Progress Notes * Irene Grubbs MD - 07/13/2025 4:00 PM EST María Elena Pruett is a 39 y.o. female who presents with progressive generalized body aches, sleepy,marked fatigue with minimal exertion, and unintentional weight gain over HPI Constitutional symptoms- recent fever, acute infection, trauma- none new strenuous physical activity- April Onset- 3 weeks ago Reports feeling exhausted after walking short distances that were previously well tolerated, with asensation of heaviness and reduced stamina. Descriptive symptoms- associated daytime somnolence, low energy despite adequate sleep, and decreased motivation. Cold intolerance, constipation, dry skin, loss of hair, low mood- yes Changes in appetite - none Chest pain, palpitations, syncope, or acute dyspnea, but endorses easy fatigability. Recent medication changes unless stated. Denies feeling down and depressed Family history of thyroid disease- mom and dad side- cousins and aunts Family history of Autoimmune disorders- none Thyroid Disorder - History of thyroid dysfunction 2-3 years ago, with episodes of weight loss and low potassium - Hospitalized at [facility] for 3 days in 2019 due to thyroid-related symptoms and rapid weight loss (20 lbs in 1 month) - Referred to endocrinology; thyroid levels described as unstable, no medication prescribed Menopause - Surgical menopause following total hysterectomy 1 year ago - No menstrual periods since surgery Scalp Lesion - Pruritic, flaky, red scalp lesion present for 1 month - No change in hair products Allergies[1] Review of Systems Constitutional: Positive for appetite change and fatigue. Negative for activity change, chills, fever and unexpected weight change. Respiratory: Negative for cough and shortness of breath. Gastrointestinal: Positive for constipation. Negative for abdominal distention, abdominal pain and vomiting. Abdominal bloating Neurological: Negative for dizziness, weakness and numbness. Vitals: 07/13/25 1623 BP: 139/85 BP Location: Left arm Patient Position: Sitting BP Cuff Size: Adult Pulse: 76 Resp: 20 Temp: 98.2 ??F (36.8 ??C) TempSrc: Oral Weight: 157 lb (71.2 kg) Height: 5' 3 (1.6 m) Physical Exam Constitutional: General: She is awake. Appearance: Normal appearance. She is not ill-appearing. Eyes: General: Lids are normal. Extraocular Movements: Extraocular movements intact. Right eye: Normal extraocular motion. Left eye: Normal extraocular motion. Conjunctiva/sclera: Conjunctivae normal. Right eye: Right conjunctiva is not injected. Left eye: Left conjunctiva is not injected. Pupils: Pupils are equal, round, and reactive to light. Right eye: Pupil is reactive and not sluggish. Left eye: Pupil is reactive and not sluggish. Funduscopic exam: Right eye: Red reflex present. Left eye: Red reflex present. Cardiovascular: Rate and Rhythm: Normal rate and regular rhythm. Heart sounds: Normal heart sounds, S1 normal and S2 normal. Pulmonary: Effort: Pulmonary effort is normal. No tachypnea or respiratory distress. Breath sounds: Normal breath sounds and air entry. No decreased air movement. No wheezing or rhonchi. Skin: Comments: Pruritic, flaky, red scalp lesion- the occipital region Neurological: Mental Status: She is alert and oriented to person, place, and time. Motor: Motor function is intact. No tremor or abnormal muscle tone. Coordination: Coordination is intact. Mijdru-Cicb-Hkvgkz Test and Heel to Estrella Test normal. Gait: Gait is intact. Gait and tandem walk normal. Psychiatric: Behavior: Behavior is cooperative. Assessment & Plan Other fatigue - Will order lab tests to rule out anemia, thyroid concerns and other etiologies. - Will consider an alternative blood pressure medication as the Atenolol can cause fatigue - She will return in 1 month Orders: CBC auto differential; Future Comprehensive Metabolic Panel; Future TSH W/Reflex to FT4; Future Hemoglobin A1c; Future Vitamin D, 25-Hydroxy, Total, Immunoassay; Future Vitamin B12/Folate, Serum Panel; Future Magnesium; Future mupirocin (Bactroban) 2 % ointment; Apply topically 3 times daily for 10 days. Folliculitis Will order Mupirocin for the scalp Primary hypertension BP is controlled No change in management for now Current Medications[2] Follow up in about 4 weeks (around 08/10/2025) for Labs, fatigue, and scap issues. [facility] TOGGLE PRESS OPERATOR Attestation TOGGLE PRESS OPERATOR Resident Attestation: Patient was seen and evaluated by Beatriz REYES, in collaboration with Irene Grubbs MD who has reviewed my assessment and plan. I, Irene Grubbs MD , have reviewed the resident's note and agree with the assessment & plan of care as documented above. This note was drafted using Ambient (AI) technology. The patient/patient's guardian has been informed and has consented to the use of this technology: Yes [1] Allergies Allergen Reactions Alitraq Aspirin Other Other Reaction(s): Horses, Dogs, Cats, Dust Mites: sneezing/hives, Seasonal: sneezing Sesame Oil Soybean-Containing Drug Products Other Reaction(s): anaphylaxis Sulfamethoxazole Unknown Trimethoprim Unknown [2] Current Outpatient Medications: albuterol (2.5 MG/3ML) 0.083% nebulizer solution, Take 3 mL by nebulization every 4 (four) hours ifneeded for wheezing., Disp: 75 mL, Rfl: 2 atenolol (Tenormin) 50 MG tablet, TAKE 1 TABLET(50 MG) BY MOUTH DAILY, Disp: 90 tablet, Rfl: 1 busPIRone (Buspar) 5 MG tablet, Take 1 tablet (5 mg) by mouth 2 times daily., Disp: 60 tablet, Rfl:11 chlorthalidone (Hygroton) 25 MG tablet, Take 1 tablet (25 mg) by mouth in the morning., Disp: 30 tablet, Rfl: 11 cholecalciferol (Vitamin D-3) 50 MCG (2000 UT) capsule, 1 capsule a day, Disp: 30 capsule, Rfl: 11 cyclobenzaprine (Flexeril) 10 MG tablet, Take 1 tablet (10 mg) by mouth at bedtime., Disp: 30 tablet, Rfl: 3 Diclofenac Sodium 1 % gel, To apply to the affected area 3 times a day, Disp: 100 g, Rfl: 0 EPINEPHrine (Epipen) 0.3 MG/0.3ML injection syringe, INJECT 1 DEVICE INTO THE MUSCLE DIRECTED 1 TIME FOR 1 DOSE, Disp: 2 each, Rfl: 11 fexofenadine (Allergy Relief) 180 MG tablet, TAKE 1 TABLET(180 MG) BY MOUTH IN THE MORNING, Disp: 30 tablet, Rfl: 5 fluconazole (Diflucan) 150 MG tablet, 150 mg on day 1, 150 mg on day 7, Disp: 2 tablet, Rfl: 0 fluticasone (Flonase) 50 MCG/ACT nasal spray, Administer 1 spray into each nostril 2 times daily. Shake gently. Before first use, prime pump. After use, clean tip and replace cap., Disp: 16 g, Rfl: 2 fluticasone-salmeterol (Advair) 230-21 MCG/ACT inhaler, Inhale 2 puffs in the morning and at bedtime. Rinse mouth with water after use to reduce aftertaste and incidence of candidiasis. Do not swallow., Disp: 12 g, Rfl: 11 ibuprofen 800 MG tablet, TAKE 1 TABLET BY MOUTH THREE TIMES A DAY, Disp: 90 tablet, Rfl: 0 LORazepam (Ativan) 0.5 MG tablet, Take 1 tablet (0.5 mg) by mouth if needed each day for anxiety., Disp: 30 tablet, Rfl: 0 Mometasone Furoate (Asmanex HFA) 200 MCG/ACT aerosol, Inhale 2 puffs every 12 (twelve) hours., Disp: 13 g, Rfl: 3 montelukast (Singulair) 10 MG tablet, TAKE 1 TABLET BY MOUTH DAILY, Disp: 90 tablet, Rfl: 3 valACYclovir (Valtrex) 500 MG tablet, , Disp: , Rfl: Ventolin HFA 108 (90 Base) MCG/ACT inhaler, INHALE 2 PUFFS BY MOUTH 4-6 TIMES EVERY DAY NEEDED, Disp: 18 g, Rfl: 11 Vivelle-Dot 0.075 MG/24HR, APPLY 1 PATCH TOPICALLY TO SKIN EVERY SATURDAY AND SATURDAY, Disp: , Rfl: documented in this encounter Miscellaneous Notes * Assessment & Plan Note - Irene Grubbs MD - 07/13/2025 4:00 PM EST Associated Problem(s): Hypertensive disorder BP is controlled No change in management for now documented in this encounter Plan of Treatment Upcoming Encounters Date Type Department Care Team (Late st Contact Info) Description 08/18/2025 2:00 PM EST Office Visit [facility] MED & PEDS [address] [place] [address] Irene Grubbs MD [address] [place] [address] Scheduled Orders Name Type Priority Associated Diagnoses Orde r Schedule CBC auto differential Lab Routine Other fatigue Expected: 07/14/2025 (Approximate), Expires: 07/14/2026 Comprehensive Metabolic Panel Lab Routine Other fatigue Expected: 07/14/2025 (Approximate), Expires: 07/14/2026 TSH W/Reflex to FT4 Lab Routine Other fatigue Expected: 07/14/2025 (Approximate), Expires: 07/14/2026 Hemoglobin A1c Lab Routine Other fatigue Expected: 07/14/2025 (Approximate), Expires: 07/14/2026 Vitamin D, 25-Hydroxy, Total, Immunoassay Lab Routine Other fatigue Expected: 07/14/2025 (Approximate), Expires: 07/14/2026 Vitamin B12/Folate, Serum Panel Lab Routine Other fatigue Expected: 07/14/2025 (Approximate), Expires: 07/14/2026 Magnesium Lab Routine Other fatigue Expected: 07/14/2025 (Approximate), Expires: 07/14/2026 documented as of this encounter Visit Diagnoses Diagnosis Other fatigue- Primary Folliculitis Other specified disease of hair and hair follicles Primary hypertension Unspecified essential hypertension documented in this encounter Additional Health Concerns Assessment Noted Time PHQ-9 Depression Total Score: 10 024 3:48 PM EDT documented as of this encounter Care Teams Bi Report Developer Relationship Specialty Start Date End Date Irene Grubbs MD [address] [place] [id number] PCP - General Internal Medicine 07/02/19 documented as of this encounter
--- OUTSIDE RECORDS SUMMARY | 2025-07-14 12:14 | XMS_ITS | Encounter Summary ---
Author Organization [employer] Address [address] [place] [address] 7 [place] [address] Care Team Providers Care Paint Laboratory Technician Name Role Phone Irene Grubbs MD Primary Care Provider Encounter Details Date Type Department Care Team ([facility] Contact Info) Description 02/04/2023 Orders Only [facility] MED & PEDS [address] [place], [place] [phone] Irene Grubbs MD [address] [place], [place] [phone] Low TSH level (Primary Dx); Positive RU [...] Upcoming Encounters Date Type Department Care Team ([facility] Contact Info) Description 08/18/2025 2:00 PM EST Office Visit [facility] MED & PEDS [address] [place], [place] [phone] Irene Grubbs MD [address] [place] [address] Scheduled Orders Name Type Priority Associated Diagnoses [...] T4, Free 1.3 0.8 - 1.8 ng/dL [facility] 02/06/2023 3:58 PM EDT 02/06/2023 3:58 PM EDT Narrative [facility] - 02/07/2023 5:10 AM EDT FASTING:NO FASTING: NO Irene Grubbs MD LAB BLOOD ORDERABLES Final Result [facility] [address], [place] [address] [facility] [address] [place] [address] * (ABNORMAL) TSH W/Reflex to FT4 (02/06/2023 3:58 PM EDT) TSH w/Reflex to FT4 0.32(L) mIU/L [facility] Comment: Reference Range > or = 20 Years 0.40-4.50 Ranges First trimester 0.26-2.66 Second trimester 0.55-2.73 Third trimester 0.43-2.91 Blood 02/06/2023 3:58 PM EDT 02/06/2023 3:58 PM EDT Narrative [facility] - 02/07/2023 5:10 AM EDT FASTING:NO FASTING: NO Irene Grubbs MD LAB BLOOD ORDERABLES Final Result [facility] [address], [place] [address] [facility] [address] [place] [address] documented in this encounter Visit Diagnoses Diagnosis Low TSH level- Primary Positive RU (antinuclear antibody) Other and unspecified nonspecific immunological findings documented in this encounter Additional Health Concerns Assessment Noted Time PHQ-9 Depression Total Score: 9 10/23/19 23 4:00 PM EST documented as of this encounter Care Teams Paint Laboratory Technician Relationship Specialty Start Date End Date Irene Grubbs MD [address] [place] [id number] PCP - General Internal Medicine 07/02/19 documented as of this encounter
--- OUTSIDE RECORDS SUMMARY | 2025-07-14 12:14 | XMS_ITS | Clinical Summary ---
Author Organization [facility] Address [address] [address] Phone Care Team Providers Care High School Drafting Teacher Name Role Phone Irene Grubbs MD [...] Discern Expert Problem added by Discern Expert Social History Tobacco Use Types Packs/Day Years [...] Mass Index - - Plan of Treatment Health Maintenance Due Date Last Done Comments Hepatitis B Vaccine (1 of 3 - 19+ 3-dose series) 10/01 Pneumococcal Vaccine: Peds ( 0 to 5 Years) and At-Risk Patients (6 to 49 Years) (1 of 2 - PCV) 2004 Influenza Vaccine (#1) 2025 Insurance Medicaid [place] Care Teams High School Drafting Teacher Relationship Specialty Start Date End Date Irene Grubbs MD [address] [place] [id number] PCP - General Internal Medicine 01/02/24
--- OUTSIDE RECORDS SUMMARY | 2025-07-14 12:14 | XMS_ITS | Encounter Summary ---
Author Organization [employer] Address [address] [facility] 7 [place] [address] Care Team Providers Care Horseshoer Name Role Phone Irene Grubbs MD Primary Care Provider [phone] Reason for Visit * Reason Onset Date Comments Med Refill 12/11/2024 Encounter Details Date Type Department Care Team (Late st Contact Info) Description 12/11/2024 Telephone [facility] MEDICINE [address] [place] [address] Irene Grubbs MD [address] [place] [address] Med Refill Social History Tobacco Use Types [...] encounter Miscellaneous Notes * Telephone Encounter - Haresh Martell - 12/11/2024 1:41 PM EDT TC from pt requesting medication refill. Medications needing refill : cyclobenzaprine (Flexeril) 10 MG tablet To be sent to: [id number] AT [facility] documented in this encounter Plan of Treatment Upcoming Encounters Date Type Department Care Team (Late st Contact Info) Description 08/18/2025 2:00 PM EST Office Visit [facility] CHC MED & PEDS [address] [place] [address] Irene Grubbs MD [address] [place] [address] documented as of this encounter Visit Diagnoses Not on filedocumented in this encounter Additional Health Concerns Assessment Noted Time PHQ-9 Depression Total Score: 10 024 3:48 PM EDT documented as of this encounter Care Teams Horseshoer Relationship Specialty Start Date End Date Irene Grubbs MD [address] [place] [address] PCP - General Internal Medicine 07/02/19 documented as of this encounter
--- OUTSIDE RECORDS SUMMARY | 2025-07-14 12:14 | XMS_ITS | Encounter Summary ---
Author Organization [employer] Address [address] [facility] 7 [place] [address] Care Team Providers Care Border Police Name Role Phone Irene Grubbs MD Primary Care Provider Reason for Visit * Reason Onset Date Comments Nurse Triage 05/28/2025 Encounter Details Date Type Department Care Team ([facility] st Contact Info) Description 05/28/2025 Telephone [facility] CHC MED & PEDS [address] [place] [address] Irene Grubbs MD [address] [place] [address] Nurse Triage Social History Tobacco Use Types Packs/Day Years [...] encounter Miscellaneous Notes * Telephone Encounter - Clau Carnes RN - 05/28/2025 4:17 PM EDT TC to pt. Pt states that sinus pressure that was present for 05/24 visit is still present. Pt reports that she has had a fever earlier this week that she has treated with Tylenol and advised having thick mucus she is blowing out her nose, and has bad taste in mouth. Denies fevers currently. Advised not feeling better. Advised for pt to be seen, advised no available appts today due to time. Advised for pt to continue with home care measures using OTC for symptom relief, advised for pt to be seen by provider. Advised for pt to either seek out today or [facility] tomorrow. Pt stated would want to go to [facility] in AM. Advised for pt to contact office if worsening symptoms and reviewed ER precautions. Ptverbalized understanding and agreement with plan. Protocol Used: Common Cold (Adult) Protocol-Based Disposition: See in Office or Video Visit Today Video visit offer not recorded Positive Triage Questions: * Sinus pain (not just congestion) and fever * Earache * Sinus congestion (pressure, fullness) present > 10 days * Nasal discharge present > 10 days * Using nasal washes and pain medicine > 24 hours and sinus pain (lower forehead, cheekbone, or eye) persists * All higher-acuity triage questions were negative Care Advice Discussed: * Reassurance and Education - Common Cold Symptoms * Treatment for Other Cold Symptoms * Humidifier * Expected Course * Reasons To Call Back - Fever lasts over 3 days - Runny nose lasts over 10 days - You become short of breath - You become worse * Medicines for Stuffy or Runny Nose * Pain and Fever Medicines * Telephone Encounter - Darien Reynagaiz - 05/28/2025 3:43 PM EDT Symptoms: Fever, Earache, Sore Throat, Headache Outcome: Schedule an urgent appointment (within 1 hour) or talk to a nurse or provider soon Reason: Severe pain now The caller accepted this outcome. Contact pt at [phone] (maltese) documented in this encounter Plan of Treatment Upcoming Encounters Date Type Department Care Team ([facility] st Contact Info) Description 08/18/2025 2:00 PM EST Office Visit [facility] MED & PEDS [address] [place] [address] Irene Grubbs MD [address] [place] [address] documented as of this encounter Visit Diagnoses Not on filedocumented in this encounter Additional Health Concerns Assessment Noted Time PHQ-9 Depression Total Score: 10 024 3:48 PM EDT documented as of this encounter Care Teams Border Police Relationship Specialty Start Date End Date Irene Grubbs MD [address] [place] [address] PCP - General Internal Medicine 07/02/19 documented as of this encounter
--- OUTSIDE RECORDS SUMMARY | 2025-07-14 12:14 | XMS_ITS | Encounter Summary ---
Author Organization [employer] Address 75 [facility] 7 [place] [address] Care Team Providers Care Wax Ball Molder Name Role Phone Irene Grubbs MD Primary Care Provider [phone] Reason for Visit * Reason Onset Date Comments Med Refill 07/03/2023 Encounter Details Date Type Department Care Team ([facility] st Contact Info) Description 07/03/2023 Telephone [facility] CHC MED & PEDS [address] [place] [address] Irene Grubbs MD [address] [place] [address] Med Refill Social History Tobacco Use Types [...] 100 MG capsule to be sent to [facility] #[id number] AT [facility] documented in this encounter Plan of Treatment Upcoming Encounters Date Type Department Care Team (Late st Contact Info) Description 08/18/2025 2:00 PM EST Office Visit [facility] CHC MED & PEDS [address] [place] [address] Irene Grubbs MD [address] [place] [address] documented as of this encounter Visit Diagnoses Not on filedocumented in this encounter Additional Health Concerns Assessment Noted Time PHQ-9 Depression Total Score: 13 023 11:25 AM EDT documented as of this encounter Care Teams Wax Ball Molder Relationship Specialty Start Date End Date Irene Grubbs MD [address] [place] [address] PCP - General Internal Medicine 07/02/19 documented as of this encounter
--- OUTSIDE RECORDS SUMMARY | 2025-07-14 12:14 | XMS_ITS | Encounter Summary ---
Author Organization [employer] Address [address] [facility] 7[address] [place] [address] Care Team Providers Care Continuous Improvement Intern Name Role Phone Irene Grubbs MD Primary Care Provider [phone]- [phone] Encounter Details Date Type Department Care Team ([facility] st Contact Info) Description 05/18/2025 Orders Only [facility] CHC MED & PEDS [address] [place], [place] [phone] ProviderVance MD Social History Tobacco Use Types Packs/Day Years [...] Description 08/18/2025 2:00 PM EST Office Visit [facility] MED & PEDS [address] [place] [address] Irene Grubbs MD [address] [place] [address] documented as of this encounter Procedures Procedure Name Priority Date/Time Associated Diagnosis Comments COLPOSCOPY Routine 11/13/2022 4:01 PM EDT documented in this encounter Results * Colposcopy (11/13/2022 4:01 PM EDT) us Historical Provider IN CLINIC/BEDSIDE ORDERAB LES Final Result documented in this encounter Visit Diagnoses Not on filedocumented in this encounter Additional Health Concerns Assessment Noted Time PHQ-9 Depression Total Score: 10 024 3:48 PM EDT documented as of this encounter Care Teams Continuous Improvement Intern Relationship Specialty Start Date End Date Irene Grubbs MD [address] [place] [address] PCP - General Internal Medicine 07/02/19 documented as of this encounter
--- OUTSIDE RECORDS SUMMARY | 2025-07-14 12:14 | XMS_ITS | Encounter Summary ---
Author Organization [employer] Address [address] [facility] 7t [place] [address] Care Team Providers Care Tack Coverer Name Role Phone Irene Grubbs MD Primary Care Provider [phone] Encounter Details Date Type Department Care Team ([facility] st Contact Info) Description 09/20/2023 Orders Only [facility]S [address] [place], [place] [phone] Irene Grubbs MD [address] [place] [address] Hypokalemia (Primary Dx) Social History Tobacco Use [...] Description 08/18/2025 2:00 PM EST Office Visit [facility] PEDS [address] [place] [address] Irene Grubbs MD [address] [place], [place] [phone] documented as of this encounter Procedures Procedure Name Priority Date/Time Associated Diagnosis Comments BASIC METABOLIC PANEL Routine 09/24/2023 8:03 AM EST Hypokalemia documented in this encounter Results * (ABNORMAL) Basic Metabolic Panel (09/24/2023 8:03 AM EST) Sodium 139 135 - 145 mmol/L [facility] Potassium 3.8 3.3 - 5.1 mmol/L [facility] Chloride 102 96 - 108 mmol/L [facility] Carbon Dioxide 28 22 - 29 mmol/L [facility] Anion Gap 13 12 - 20 [facility] Urea Nitrogen (BUN) 15 9 - 16 mg/dL [facility] Creatinine, Serum 0.73 0.5 - 1.4 mg/dL [facility] Estimated Glomerular Filt Rate >60 [facility] Comment:NOTE: For -Am erican individuals, multiply the result by 1.210.Chronic Kidney Disease: Estimated GFR < 60 mL/min/1.84q3Niwyaj Kidney Disease: Estimated GFR < 15 mL/min/1.73m2 Glucose 150(H) 60 - 115 mg/dL [facility] Calcium 9.5 8.4 - 10.2 mg/dL [facility] Blood Venous blood specimen / Unknown 09/24/2023 8:03 AM EST 09/24/2023 11:12 AM EST Irene Grubbs MD LAB BLOOD ORDERABLES Final Result [facility] [address] [place] [phone] documented in this encounter Visit Diagnoses Diagnosis Hypokalemia- Primary Hypopotassemia documented in this encounter Additional Health Concerns Assessment Noted Time PHQ-9 Depression Total Score: 8 08/22/19 24 4:08 PM EST documented as of this encounter Care Teams Tack Coverer Relationship Specialty Start Date End Date Irene Grubbs MD [address] [place] [phone] PCP - General Internal Medicine 07/02/19 documented as of this encounter
--- OUTSIDE RECORDS SUMMARY | 2025-07-14 12:14 | XMS_ITS | Clinical Summary ---
Author Organization [facility] Address [address] [place] [address] Care Team Providers Care Employee Relations Consultant Name Role Phone Liyah Cummings MD Primary Care Provider [phone] Surgical History Surgery Date Site/Laterality Comments SECTION [...] Cervical Cancer Screening: P ap Smear 2006 HPV Vaccines (1 - 3-dose SCD M series) 2012 HIV Screening 07/17/2022 Hepatitis C Screening 07/17/2022 Social Influencers of Health Screening 07/17/2022 Depression Screening 08/19/2024 COVID-19 Vaccine ( - 2024-2 6 season) 2025 Influenza Vaccine (#1) 2025 RSV Immunization Adult Patie nts (1 - 1-dose 75+ series) 2060 HIB Vaccines Aged Out No longer eligi [...] age to complete this topic Meningococcal B Vaccine Aged Out No l onger eligible based on patient's age to complete this topic Pneumococcal Vaccine: Pediat rics (0 to 5 Years) and At-Risk Patients (6 to 49 Years) Aged Out No longer eligible b ased on patient's age to complete this topic RSV Immunization Patients Un jackelin 20 months Aged Out No longer eligible b ased on patient's age to complete this topic Varicella Vaccines Aged Out No longer eligible based on patient's age to complete this topic Care Teams Employee Relations Consultant Relationship Specialty Start Date End Date Liyah Cummings MD [address] [place] [phone] PCP - General 09/30/14
--- OUTSIDE RECORDS SUMMARY | 2025-07-14 12:14 | XMS_ITS | Clinical Summary ---
Author Organization [facility] Address [address] [employer] [facility] [address] [place] [phone] Phone Care Team Providers Care Cat Scan Tech Name Role Phone Irene Grubbs MD Primary Care Pr ovider Social History Tobacco Use Types Packs/Day Years Used Date Smoking Tobacco: Never Assessed Education Answer Date Recorded Are you interested in more education? Not on joyce e 01/01/2024 Are you concerned about learning? Not on file 01/01/2024 No 01/01/2024 No 01/01/2024 Digital Access Answer Date Recorded No 01/01/2024 No 01/01/2024 Reliable internet access at home? Not on file 01/01/2024 Device with a working camera? Not on file Comments Unknown Sex and Gender Information Value Date Recorded Sex Assigned at Not on file Legal Sex Female 9:18 AM EDT Gender Identity Not on file Sexual Orientation Not on file Plan of Treatment Health Maintenance Due Date Last Done Comments Adult Td,Tdap Booster 1985 DEPRESSION SCREENING 1997 SMOKING Hx and SMOKELESS TOB ACCO SCREENING 1998 HEPATITIS C SCREENING 2003 HIV ONE-TIME SCREENING (18-6 5 YEARS) 2003 PAP SMEAR 2006 INFLUENZA VACCINE (#1) 2025 COVID-19 VACCINE (2024-2 6 season) 2025 HEPATITIS A VACCINES Aged Out No long er eligible based on patient's age to complete this topic HIB VACCINES Aged Out No longer eligi ble based on patient's age to complete this topic MENINGOCOCCAL VACCINES (ACWY) Aged Out No longer eligible based on patient's age to complete this topic MENINGOCOCCAL VACCINES (B) Aged Out N o longer eligible based on patient's age to complete this topic PNEUMOCOCCAL VACCINES (0-49 years) Aged Out No longer eligible based on patient's age to complete this topic Medical Devices Not on file Insurance C3 ACO C3 ACO C3 ACO C3 ACO C3 A[employer] [id number] Care Teams Cat Scan Tech Relationship Specialty Start Date End Date Irene Grubbs MD PCP - General Internal Medicine 04/24/24 Additional Source Comments The information contained in this document represents components of the legal health record. It is not the complete legal health record.[facility]
--- OUTSIDE RECORDS SUMMARY | 2025-07-14 12:14 | XMS_ITS | Encounter Summary ---
Author Organization [employer] Address [address] [facility] 7 [place] [address] Care Team Providers Care Electron Microprobe Operator Name Role Phone Irene Grubbs MD Primary Care Provider [phone] Reason for Visit * Reason Onset Date Comments Results 12/11/2024 Encounter Details Date Type Department Care Team (Late st Contact Info) Description 12/11/2024 Telephone [facility] [address] [place] [address] Irene Grubbs MD [address] [place] [address] Results Social History Tobacco Use Types Packs/Day Years [...] Telephone Encounter - Haresh Martell - 12/11/2024 1:42 PM EDT TC from pt requesting call back regarding Results. Type of results: Blood Test and Ultra Sound Date when done: IN September Facility: [facility] Contact pt at [phone] documented in this encounter Plan of Treatment Upcoming Encounters Date Type Department Care Team (Late st Contact Info) Description 08/18/2025 2:00 PM EST Office Visit [facility] MED & PEDS [address] [place] [address] Irene Grubbs MD [address] [place] [address] documented as of this encounter Visit Diagnoses Diagnosis Fibromyalgia Unspecified myalgia and myositis documented in this encounter Additional Health Concerns Assessment Noted Time PHQ-9 Depression Total Score: 10 024 3:48 PM EDT documented as of this encounter Care Teams Electron Microprobe Operator Relationship Specialty Start Date End Date Irene Grubbs MD [address] [place] [address] PCP - General Internal Medicine 07/02/19 documented as of this encounter
--- OUTSIDE RECORDS SUMMARY | 2025-07-14 12:14 | XMS_ITS | Encounter Summary ---
Author Organization [employer] Address [address] [facility] 7t [place] [address] Care Team Providers Care Biochemical Development Engineer Name Role Phone Irene Grubbs MD Primary Care Provider [phone] Reason for Visit * Reason Onset Date Comments Letter for School/Work 08/07/2023 Encounter Details Date Type Department Care Team ([facility] st Contact Info) Description 08/07/2023 Telephone [facility] [address] [place] [address] Irene Grubbs MD [address] [place] [address] Letter for School/Work Social History Tobacco Use [...] If any question please contact pt in hungarian for clarifications. documented in this encounter Plan of Treatment Upcoming Encounters Date Type Department Care Team ([facility] st Contact Info) Description 08/18/2025 2:00 PM EST Office Visit [facility] MED & PEDS [address] [place] [address] Irene Grubbs MD [address] [place] [address] documented as of this encounter Visit Diagnoses Not on filedocumented in this encounter Additional Health Concerns Assessment Noted Time PHQ-9 Depression Total Score: 13 023 11:25 AM EDT documented as of this encounter Care Teams Biochemical Development Engineer Relationship Specialty Start Date End Date Irene Grubbs MD [address] [place] [phone] PCP - General Internal Medicine 07/02/19 documented as of this encounter
--- OUTSIDE RECORDS SUMMARY | 2025-07-14 12:14 | XMS_ITS | Encounter Summary ---
Author Organization [employer] Address [address] [facility] 7t [place] [address] Care Team Providers Care Video Game Programmer Name Role Phone Irene Grubbs MD Primary Care Provider [phone] Encounter Details Date Type Department Care Team ([facility] st Contact Info) Description 01/18/2025 Orders Only [facility] MED & PEDS [address] [place], [place] [phone] Irene Grubbs MD [address] [place] [address] Social History Tobacco Use Types Packs/Day Years [...] Description 08/18/2025 2:00 PM EST Office Visit [facility] MED & PEDS [address] [place] [address] Irene Grubbs MD [address] [place] [address] documented as of this encounter Visit Diagnoses Not on filedocumented in this encounter Additional Health Concerns Assessment Noted Time PHQ-9 Depression Total Score: 10 024 3:48 PM EDT documented as of this encounter Care Teams Video Game Programmer Relationship Specialty Start Date End Date Irene Grubbs MD [address] [place] [address] PCP - General Internal Medicine 07/02/19 documented as of this encounter
--- OUTSIDE RECORDS SUMMARY | 2025-07-14 12:14 | XMS_ITS | Encounter Summary ---
Author Organization [employer] Address [address] [facility] 7 [place] [address] Care Team Providers Care Mental Health Social Worker Name Role Phone Irene Grubbs MD Primary Care Provider [phone] Reason for Visit * Reason Onset Date Comments Referral 06/06/2023 Encounter Details Date Type Department Care Team ([facility] st Contact Info) Description 06/06/2023 Telephone [facility] MED & PEDS [address] [place], [place] [phone] Irene Grubbs MD [address] [place] [address] Referral Social History Tobacco Use Types Packs/Day [...] Upcoming Encounters Date Type Department Care Team ([facility] st Contact Info) Description 08/18/2025 2:00 PM EST Office Visit [facility] MED & PEDS [address] [place] [address] Irene Grubbs MD [address] [place] [address] documented as of this encounter Visit Diagnoses Not on filedocumented in this encounter Additional Health Concerns Assessment Noted Time PHQ-9 Depression Total Score: 5 04/29/20 23 11:15 AM EDT documented as of this encounter Care Teams Mental Health Social Worker Relationship Specialty Start Date End Date Irene Grubbs MD [address] [place] [address] PCP - General Internal Medicine 07/02/19 documented as of this encounter
--- OUTSIDE RECORDS SUMMARY | 2025-07-14 12:15 | XMS_ITS | Encounter Summary ---
Author Organization [employer] Address [address] [place] [address] [place], [place] [address] Care Team Providers Care Workers Compensation Adjuster Name Role Phone Irene Grubbs MD Primary Care Provider [phone] Reason for Referral * Consultation (Routine) - Closed Specialty Diagnoses / Procedures Referred By Rosalia landers Referred To Contact Endocrinology Diagnoses High serum renin Irene Grubbs MD [address] [place] [address] Phone: tel: fax: Jose Acuna, DO [address] [place] [address] Phone: tel: fax: Referral ID Status Reason Start Date Expiration Date V isits Requested Visits Authorized [id number] Closed Specialty Services Required 12/19/2023 12/18/2024 1 1 Encounter Details Date Type Department Care Team (Late st Contact Info) Description 12/19/2023 Orders Only [facility] MED & PEDS [address] [place] [address] Irene Grubbs MD [address] [place] [address] High serum renin (Primary Dx) Social History [...] Upcoming Encounters Date Type Department Care Team ([facility] Contact Info) Description 08/18/2025 2:00 PM EST Office Visit [facility] PEDS [address] [place] [address] Irene Grubbs MD [address] [place] [address] Scheduled Referrals Name Type Priority Associated Diagnoses [...] of this encounter Care Teams Workers Compensation Adjuster Relationship Specialty Start Date End Date Irene Grubbs MD [address] [place] [phone] PCP - General Internal Medicine 07/02/19 documented as of this encounter
--- OUTSIDE RECORDS SUMMARY | 2025-07-14 12:15 | XMS_ITS | Clinical Summary ---
Author Organization [employer] Address [address] [place] [address] 7t [place] [address] Care Team Providers Care Branch Assistant Name Role Phone Irene Grubbs MD Primary Care Provider [phone] Allergies Active Allergy Reactions Criticality Noted Date Comments Alitraq 03/10/2024 Aspirin 12/09/2020 Other 10/21/2024 Other Reaction(s): Horses, Dogs, Cats, Dust Mites: sneezing/hives, Seasonal: sneezing Sesame Oil 03/10/2024 Soybean-Containing Drug Products 10/21/2024 Other Reaction(s): anaphylaxis Sulfamethoxazole Unknown 07/30/2022 Trimethoprim Unknown 07/30/2022 Medications * This document contains information received from the source organization and may not represent a complete record from that organization. fluticasone-salme terol (Advair) 230-21 MCG/ACT inhalerIndication s:Moderate persistent asthma without complication Inhale 2 puffs in the morning and at bedtime. Rinse mouth with water after use to reduce aftertaste and incidence of candidiasis. Do not swallow. 12 g 11 08/28/19 23 Active valACYclovir (Valtrex) 500 MG tablet 06/26/20 22 Active chlorthalidone (Hygroton) 25 MG tabletIndications :Primary hypertension Take 1 tablet (25 mg) by mouth in the morning. 30 tablet 11 09/12/19 24 Active Mometasone Furoate (Asmanex HFA) 200 MCG/ACT aerosol Inhale 2 puffs every 12 (twelve) hours. 13 g 3 12/26/19 24 Active cholecalciferol (Vitamin D-3) 50 MCG (1999) capsuleIndication s:Low vitamin D level 1 capsule a day 30 capsule 11 06/10/20 24 Active fexofenadine (Allergy Relief) 180 MG tabletIndications :Seasonal allergies TAKE 1 TABLET(180 MG) BY MOUTH IN THE MORNING 30 tablet 5 06/10/20 24 Active cyclobenzaprine (Flexeril) 10 MG tabletIndications :Fibromyalgia Take 1 tablet (10 mg) by mouth at bedtime. 30 tablet 3 06/10/20 24 Active Diclofenac Sodium 1 % gelIndications:Le ft lateral epicondylitis To apply to the affected area 3 times a day 100 g 06/10/20 24 Active busPIRone (Buspar) 5 MG tabletIndications :Anxiety Take 1 tablet (5 mg) by mouth 2 times daily. 60 tablet 11 06/10/20 24 Active albuterol (2.5 MG/3ML) 0.083% nebulizer solutionIndicatio ns:Shortness of breath,Asthma with acute exacerbation, unspecified asthma severity, unspecified whether persistent,Other asthma Take 3 mL by nebulization every 4 (four) hours if needed for wheezing. 75 mL 2 08/17/20 24 Active EPINEPHrine (Epipen) 0.3 MG/0.3ML injection syringeIndication s:Seasonal allergies INJECT 1 DEVICE INTO THE MUSCLE DIRECTED 1 TIME FOR 1 DOSE 2 each 09/01/19 25 Active Ventolin HFA 108 (90 Base) MCG/ACT inhalerIndication s:Other asthma INHALE 2 PUFFS BY MOUTH 4-6 TIMES EVERY DAY NEEDED 18 g 09/01/19 25 Active montelukast (Singulair) 10 MG tablet TAKE 1 TABLET BY MOUTH DAILY 90 tablet 3 09/03/19 25 Active Vivelle-Dot 0.075 MG/24HR APPLY 1 PATCH TOPICALLY TO SKIN EVERY SATURDAY AND SATURDAY Active fluconazole (Diflucan) 150 MG tablet 150 mg on day 1, 150 mg on day 7 2 tablet 01/23/20 25 Active atenolol (Tenormin) 50 MG tabletIndications :Primary hypertension TAKE 1 TABLET(50 MG) BY MOUTH DAILY 90 tablet 1 03/30/20 25 Active LORazepam (Ativan) 0.5 MG tabletIndications :Anxiety Take 1 tablet (0.5 mg) by mouth if needed each day for anxiety. 30 tablet 03/29/20 25 Active fluticasone (Flonase) 50 MCG/ACT nasal sprayIndications: Viral upper respiratory illness Administer 1 spray into each nostril 2 times daily. Shake gently. Before first use, prime pump. After use, clean tip and replace cap. 16 g 2 05/24/20 25 026 Active ibuprofen 800 MG tablet TAKE 1 TABLET BY MOUTH THREE TIMES A DAY 90 tablet 06/09/20 25 Active mupirocin (Bactroban) 2 % ointmentIndicatio ns:Other fatigue Apply topically 3 times daily for 10 days. 22 g 07/14/20 25 025 Active Active Problems Problem Noted Date Diagnosed Date H/O total hysterectomy 06/25/2025 Overview (06/25/2025): Total hysterectomy 03/13/24 Synovitis and tenosynovitis of left ankle and fo ot 09/28/2024 Moderate episode of recurren t major depressive disorder (CMS/HCC) 05/28/2024 Caregiver role strain 03/10/2024 Chronic pelvic [...] agrees with the plan. Hypertensive disorder 07/30/2022 Assessment & Plan (07/14/2025 10:26 AM EST): BP is controlled No change in management for now Asthma 07/30/2022 Allergic conjunctivitis 07/30/2022 Acute COVID-19 [...] Encounters Date Type Department Care Team Description 07/13/2025 4:00 PM EST Office Visit [facility] P[facility]S [address] [place] [address] Irene Grubbs MD Other fatigue (Primary Dx); Folliculitis; Primary hypertension 07/13/2025 Travel 06/28/[address] [address] Irene Grubbs MD Nurse Triage 06/24/2025 Orders Only [facility] [address] [place] [address] Vance Grant MD 06/09/[address] [facility] [address] [place] [address] Irene Grubbs MD 05/28/2025 Telephone [facility]EDS [address] [place] [address] Irene Grubbs MD Nurse Triage 05/24/2025 6:40 PM EDT Office Visit [facility] [address] [place] [address] Megan Lopez NP Viral upper respiratory illness (Primary Dx); Sore throat; Nasal congestion; Elevated blood pressure reading in office with diagnosis of hypertension 05/24/2025 Telephone [facility] [address] [place] [address] Irene Grubbs MD Nurse Triage 05/18/2025 Orders Only [facility] [address] [place] [address] Vance Grant MD 05/13/2025 3:[address] [facility] [address] [place] [address] Clau Carnes RN Encounter for immunization 05/13/2025 Travel 05/13/[address] [facility] [address] [place] [address] Irene Grubbs MD No Show 04/23/[address] [facility] [address] [place] [address] Irene Grubbs MD Med Refill from Last 3 Months Immunizations Immunization Administration Dates Next Due HepB-CpG 05/13/2025,04/08/2025 Pfizer Covid-19 Vaccine 12+ 06/23/2021, Tdap 02/01/2024,10/31/2012 Social History Tobacco Use Types Packs/Day Years Used Date Smoking Tobacco: Never Passive Smoke Exposure: Never Smokeless Tobacco: Never Tobacco Cessation:Counseling Given: [...] 20 07/13/2025 4:23 PM EST Oxygen Saturation 98% 05/24/2025 6:48 PM EDT Inhaled Oxygen Concentration - - Weight 71.2 kg (157 lb) 07/13/2025 4:23 PM EST Height 160 cm (5' 3 ) 07/13/2025 4:23 PM EST Body Mass Index 27.81 07/13/2025 4:23 PM EST Plan of Treatment Upcoming Encounters Date Type Department Care Team (Late st Contact Info) Description 08/18/2025 2:00 PM EST Office Visit [facility] [address] [place] [address] Irene Grubbs MD [address] [place] [address] Health Maintenance Due Date Last Done Comments Alcohol/Substance Use Screening 1997 Family Planning (PISQ) 2000 HPV Vaccines (1 - 3-dose series) 2000 Hepatitis C Screening 2003 Pneumococcal Vaccine: Pediatrics (0 to 5 Years) and At-Risk Patients (6 to 49) Years (1 of 2 - PCV) 2004 Depression Monitoring 11/26/2024 05/28/2024 , 05/28/2024 SDOH Screening 12/22/2024 12/23/2023 COVID-19 Vaccine (3 - 2024-2 6 season) 2025 06/23/2021, 06/02/2021 Influenza Vaccine (#1) 2025 Lipid Panel 04/20/2025 04/20/2020 Pap Smear 10/11/2025 10/11/2022 Disability Screening 04/07/2026 04/07/2025 Tobacco Screening 06/05/2026 06/05/2025 Cervical Cancer Screening 10/11/2027 HPV/Cotest 10/11/2027 10/11/2022 DTaP/Tdap/Td Vaccines (3 - T d or Tdap) 01/31/2034 02/01/2024, 10/31/2012 Zoster Vaccines (1 of 2) 2035 RSV Patients and Patients Aged 60 years or older (1 - 1-dose 75+ series) 2060 HIV Screening Completed 02/08/2021 Colposcopy Completed 11/13/2022 Hepatitis B Vaccines Completed 05/13/2025, 04/08/2025 HIB Vaccines Aged Out No longer eligi [...] Date/Time Associated Diagnosis Comments POCT INFLUENZA A (ID NOW RAPID MOLECULAR) Routine 05/24/2025 7:11 PM EDT Nasal congestion POCT INFLUENZA B (ID NOW RAPID MOLECULAR) Routine 05/24/2025 7:11 PM EDT Nasal congestion POCT COVID-19 AG LEWIS ID NOW Routine 05/24/2025 7:10 PM EDT Sore throat POC LEWIS ID NOW STREP A Routine 05/24/2025 7:09 PM EDT Sore throat COLPOSCOPY Routine 11/13/2022 4:01 PM EDT HM PAP/HPV Routine 10/11/2022 HIV 1/2 ANTIGEN/ANTIBODY, FOURTH GENERATION W/RFL Routine 02/08/2021 11:38 AM EDT LIPID PANEL, STANDARD Routine 04/20/2020 11:23 AM EDT from Last 3 Months or Most Recently Relevant to Health Maintenance Results * POCT Rapid Influenza B LEWIS ID NOW (05/24/2025 7:11 PM EDT) Pathologist [facility] Influenza B Negative Negative, Indeterminate [facility] QC Media Lot # [id number] [facility] Lot# Expiration Date [facility] Swab 05/24/2025 7:11 PM EDT [facility] CERTIFIED MASSAGE THERAPIST POINT OF CARE TEST ENTER/EDIT O RDERABLES Final Result Performing Organization Address [facility]/ZIP Co de Phone Number [facility] [address] [place] [phone] * POCT Rapid Influenza A LEWIS ID NOW (05/24/2025 7:11 PM EDT) [facility] Influenza A Negative Negative, Indeterminate [facility] QC Media Lot # [id number] [facility] Lot# Expiration Date [facility] Swab 05/24/2025 7:11 PM EDT [facility] CERTIFIED MASSAGE THERAPIST POINT OF CARE TEST ENTER/EDIT O RDERABLES Final Result Performing Organization Address [facility]/ZIP Co de Phone Number [facility] [address] [place] [phone] * POCT Rapid Covid-19 LEWIS ID NOW (05/24/2025 7:10 PM EDT) [facility] Coronavirus Antigen PCR Negative Negative, Indeterminate, None Detected, Invalid, Specimen unsatisfactory for evaluation, Weakly Positive, 2+ QC Media Lot # [id number] Lot# Expiration Date Swab 05/24/2025 7:10 PM EDT [facility] POINT OF CARE TEST ENTER/EDIT O RDERABLES Final Result * POCT Rapid Strep A LEWIS ID NOW (05/24/2025 7:09 PM EDT) Pathologist [facility] Rapid Strep A Screen Negative Negative, None Detected QC Media Lot # [id number] Lot# Expiration Date Swab 05/24/2025 7:09 PM EDT [facility] POINT OF CARE TEST ENTER/EDIT O RDERABLES Final Result * Colposcopy (11/13/2022 4:01 PM EDT) [facility] Provider IN CLINIC/BEDSIDE ORDERAB LES Final Result * (ABNORMAL) HM PAP/HPV (10/11/2022) Pathologist [facility] Pap Smear 2. ASCUS(A) 1. NILM HPV Detected(A ) Undetected, Indeterminate , Quantitative, Not Detected [facility] Provider HEALTH MAINTENANCE Final Result * HIV 1/2 ANTIGEN/ANTIBODY,FOURTH GENERATION W/RFL (02/08/2021 11:38 AM EDT) Pathologist [facility] HIV-1/2 ANTIGEN AND ANTIBODIES, 4TH GENERATION W/ REFLEX NON-REACT MICHELLE NON-REACT MICHELLE [facility] Comment: HIV-1 antigen and HIV-1/HIV-2 antibodies were not detected. There is no laboratory evidence of HIV infection. PLEASE NOTE: This information has been disclosed to you from records whose confidentiality may be protected by state law. If your state requires such protection, then the state law prohibits you from making any further disclosure of the information without the specific written consent of the person to whom it pertains, or as otherwise permitted by law. A general authorization for the release of medical or other information is NOT sufficient for this purpose. For additional information please refer to http://education.Giveit100/faq/ELJ751 (This link is being provided for informational/ educational purposes only.) The performance of this assay has not been clinically validated in patients less than 2 years old. 02/08/2021 11:3 8 AM EDT us Irene Grubbs MD LAB BLOOD ORDERABLES Final Result [facility] [address] * (ABNORMAL) LIPID PANEL, STANDARD (04/20/2020 11:23 AM EDT) Cholesterol, Total 139 <200 mg/dL [facility] LDL Cholesterol 74 mg/dL (calc) [facility] Comment: Reference range: <100 Desirable range <100 mg/dL for primary prevention; <70 mg/dL for patients with CHD or diabetic patients with > or = 2 CHD risk factors. LDL-C is now calculated using the Osmin-Joelle calculation, which is a validated novel method providing better accuracy than the Friedewald equation in the estimation of LDL-C. Osmin SS et al. AMOL. 2013;310(19): 7037-9536 (http://education.[employer]oc[employer].TouchBase Technologies/faq/UKL703) HDL Cholesterol 41(L) > OR = 50 [...] with diabetes plus 1 major ASCVD risk factor, treating to a non-HDL-C goal of <100 mg/dL (LDL-C of <70 mg/dL) is considered a therapeutic option. Non-HDL Cholesterol 98 <130 mg/dL (calc) [facility] Comment: For patients with diabetes plus 1 major ASCVD risk factor, treating to a non-HDL-C goal of <100 mg/dL (LDL-C of <70 mg/dL) is considered a therapeutic option. Triglycerides 162(H) <150 mg/dL [facility] Chol/HDLC Ratio 3.4 <5.0 (calc) [facility] LDL Cholesterol 74 mg/dL (calc) [facility] Comment: Reference range: <100 Desirable range <100 mg/dL for primary prevention; <70 mg/dL for patients with CHD or diabetic patients with > or = 2 CHD risk factors. LDL-C is now calculated using the Pierre calculation, which is a validated novel method providing better accuracy than the Friedewald equation in the estimation of LDL-C. Osmin BRANDON et al. AMOL. 2013;310(19): 8950-7848 (http://education.[employer]oc[employer]Base [employer]/faq/TXU464) 04/20/2020 11:2 3 AM EDT Irene Grubbs MD LAB BLOOD ORDERABLES Final Result [facility] [address] from Last 3 Months or Most Recently Relevant to Health Maintenance Insurance Care Teams Branch Assistant Relationship Specialty Start Date End Date Irene Grubbs MD [address] [place] [phone] PCP - General Internal Medicine 07/02/19
--- OUTSIDE RECORDS SUMMARY | 2025-07-14 12:15 | XMS_ITS | Encounter Summary ---
Author Organization [employer] Address [address] [place] [address] [address] [address] Care Team Providers Care Sewer Connector Name Role Phone Irene Grubbs MD Primary Care Provider [phone] Reason for Referral * Imaging (Routine) - Denied Specialty Diagnoses / Procedures Referred By Contac t Referred To Contact Radiology Diagnoses Resistant hypertension Procedures US RENAL BI Irene Grubbs MD [address] [place] [address] Phone: tel: fax: [address] [phone] Phone: tel: fax: Referral ID Status Reason Start Date Expiration Date Visits Re quested Visits Authorized [id number] Denied 11/28/2023 11/27/2024 1 0 Encounter Details Date Type Department Care Team (Late st Contact Info) Description 11/28/2023 Orders Only [facility] [address] [place] [address] Irene Grubbs MD [address] [place], [place] [phone] Resistant hypertension (Primary Dx) Social History Tobacco [...] Upcoming Encounters Date Type Department Care Team ([facility] st Contact Info) Description 08/18/2025 2:00 PM EST Office Visit [facility]ED[facility] [address] [place] [address] Irene Grubbs MD [address] [place] [address] Scheduled Orders Name Type Priority Associated Diagnoses Orde r Schedule US RENAL BI Imaging Routine Resistant hypertension Expected: 11/28/2023, Expires: 11/27/2024 documented as of this encounter Visit Diagnoses Diagnosis Resistant hypertension- Primary documented in this encounter Additional Health Concerns Assessment Noted Time PHQ-9 Depression Total Score: 7 11/07/19 24 3:57 PM EDT documented as of this encounter Care Teams Sewer Connector Relationship Specialty Start Date End Date Irene Grubbs MD [address] [place] [phone] PCP - General Internal Medicine 07/02/19 documented as of this encounter
--- OUTSIDE RECORDS SUMMARY | 2025-07-14 12:15 | XMS_ITS | Encounter Summary ---
Author Organization [employer] Address [address] [place] [address] Care Team Providers Care Washer Operator Name Role Phone Irene Grubbs MD Primary Care Provider [phone] Encounter Details Date Type Department Care Team ([facility] st Contact Info) Description 06/24/2025 Orders Only [facility]EDS [address] [place], [place] [phone] Provider, MD Vance Social History Tobacco Use Types Packs/Day Years [...] Description 08/18/2025 2:00 PM EST Office Visit [facility] & PEDS [address] [place] [address] Irene Grubbs MD [address] [place] [address] documented as of this encounter Procedures Procedure Name Priority Date/Time Associated Diagnosis Comments TISSUE PATHOLOGY Routine 03/13/2024 11:13 AM EDT documented in this encounter Results * Tissue Pathology (03/13/2024 11:13 AM EDT) Tissue Historical Provider LAB PATHOLOGY ORDERABLES Final Result documented in this encounter Visit Diagnoses Not on filedocumented in this encounter Additional Health Concerns Assessment Noted Time PHQ-9 Depression Total Score: 10 024 3:48 PM EDT documented as of this encounter Care Teams Washer Operator Relationship Specialty Start Date End Date Irene Grubbs MD [address] [place] [address] PCP - General Internal Medicine 07/02/19 documented as of this encounter
--- OUTSIDE RECORDS SUMMARY | 2025-07-14 12:15 | XMS_ITS | Encounter Summary ---
Author Organization [employer] Address [address] [facility] 7 [place] [address] Care Team Providers Care Color Technician Name Role Phone Irene Grubbs MD Primary Care Provider [phone]- [phone] Reason for Visit * Reason Comments Med Refill Encounter Details Date Type Department Care Team ([facility] st Contact Info) Description 01/22/2024 Refill [facility] & PEDS [address] [place] [address] Irene Grubbs MD [address] [place] [address] Other asthma Social History Tobacco Use Types [...] Upcoming Encounters Date Type Department Care Team ([facility] st Contact Info) Description 08/18/2025 2:00 PM EST Office Visit [facility] MED & PEDS [address] [place] [address] Irene Grubbs MD [address] [place] [address] documented as of this encounter Visit Diagnoses Diagnosis Other asthma documented in this encounter Additional Health Concerns Assessment Noted Time PHQ-9 Depression Total Score: 9 01/06/20 24 4:06 PM EDT documented as of this encounter Care Teams Color Technician Relationship Specialty Start Date End Date Irene Grubbs MD [address] [place] [address] PCP - General Internal Medicine 07/02/19 documented as of this encounter
--- OUTSIDE RECORDS SUMMARY | 2025-07-14 12:15 | XMS_ITS | Encounter Summary ---
Author Organization [employer] Address [address] [facility] [address] [place] [address] Care Team Providers Care Bail Agent Name Role Phone Irene Grubbs MD Primary Care Provider [phone]- [phone] Encounter Details Date Type Department Care Team (Latest Contact Info) Description 07/13/2025 Travel Social History Tobacco Use Types Packs/Day [...] Description 08/18/2025 2:00 PM EST Office Visit [facility] [address] [place] [address] Irene Grubbs MD [address] [place] [address] documented as of this encounter Visit Diagnoses Not on filedocumented in this encounter Additional Health Concerns Assessment Noted Time PHQ-9 Depression Total Score: 10 024 3:48 PM EDT documented as of this encounter Care Teams Bail Agent Relationship Specialty Start Date End Date Irene Grubbs MD [address] [place] [address] PCP - General Internal Medicine 07/02/19 documented as of this encounter
--- OUTSIDE RECORDS SUMMARY | 2025-07-14 12:15 | XMS_ITS | Encounter Summary ---
Author Organization [employer] Address [address] [facility] 7 [place] [address] Care Team Providers Care Coupling Machine Operator Name Role Phone Irene Grubbs MD Primary Care Provider Reason for Visit * Reason Onset Date Comments Medication Question 03/10/2024 Encounter Details Date Type Department Care Team ([facility] st Contact Info) Description 03/10/2024 Telephone [facility] [address] [place] [address] Irene Grubbs MD [address] [place] [address] Medication Question Social History Tobacco Use Types [...] No answer. LVM to call back on [phone]. * Telephone Encounter - Nathaniel Reed - 03/10/2024 12:45 PM EDT Tc from pt requesting a call from a nurse to see if pcp could prescribe Flexeril instead of currentmed due to current med not working documented in this encounter Plan of Treatment Upcoming Encounters Date Type Department Care Team (Late st Contact Info) Description 08/18/2025 2:00 PM EST Office Visit [facility] MED & PED[facility] [address] [place] [address] Irene Grubbs MD [address] [place], [place] [phone] documented as of this encounter Visit Diagnoses Not on filedocumented in this encounter Additional Health Concerns Assessment Noted Time PHQ-9 Depression Total Score: 9 01/06/20 24 4:06 PM EDT documented as of this encounter Care Teams Coupling Machine Operator Relationship Specialty Start Date End Date Irene Grubbs MD [address] [place] [phone] PCP - General Internal Medicine 07/02/19 documented as of this encounter
[2025-07-14 14:16] LABS: MANUAL DIFF FLAG NO
[2025-07-14 14:19] LABS: Hematocrit 39.6 % (37.0-47.0); Hemoglobin 13.1 g/dl (12.0-16.0); Imm Gran Abs Auto 0.05 X10*3/uL (0.00-0.03); Imm Gran Pct Auto 0.5 % (0.0-0.4); Lymphocytes Absolute Auto 2.0 X10*3/uL (1.2-4.9); Mean Corpuscular HGB Conc 33.1 g/dl (31.0-35.0); Mean Corpuscular Hemoglobin 31.3 pg (27.0-33.0); Mean Corpuscular Volume 94.7 fL (80.0-98.0); NRBC Abs Auto 0.000 X10*3/uL (0.0-0.012); NRBC Pct Auto 0.0 /100WBC (0.0-0.2); Platelet Count 288 X10*3/uL (160-400); Red Blood Count 4.18 X10*6/uL (4.20-5.50); White Blood Count 9.6 X10*3/uL (4.8-10.8)
[2025-07-14 15:37] LABS: Folate 11.6 ng/mL (> or = 4.0); Vitamin B12 333 pg/mL (200-900)
[2025-07-14 15:45] LABS: Alanine Aminotransferase 31 U/L (0-31); Albumin Level 4.5 g/dL (3.5-5.0); Alkaline Phosphatase 95 U/L (39-117); Anion Gap 10 (12-20); Aspartate Amino Transferase 31 U/L (5-31); Blood Urea Nitrogen 13 mg/dL (9-16); Calcium 9.4 mg/dL (8.4-10.2); Carbon Dioxide 27 mmol/L (22-29); Chloride 107 mmol/L (96-108); Cholesterol 167 mg/dL (<200); Estimated Glomerular Filt Rate > 60; HDL Cholesterol 42 mg/dL (>40); Magnesium 2.0 mg/dL (1.6-2.6); Potassium 3.9 mmol/L (3.3-5.1); Sodium 140 mmol/L (135-145); Total Protein 6.9 g/dL (6.5-8.0); Triglycerides 152 mg/dL (<150)
[2025-07-15 05:10] LABS: ~HepC Num1 0.11 S/CO (0.00-0.79); ~Hepatitis C Antibody Nonreactive (Nonreactive)
== END 2025-07-14 10:22 | disposition home or self-care (01) ==
LOC: HO.CHCLDS 10:21
PROVIDERS: Visit Provider Internal Medicine
DX: I10 Essential (primary) hypertension (principal); R53.83 Other fatigue; E04.9 Nontoxic goiter, unspecified
CPT/HCPCS: 36415; 80053; 80061; 82306; 82607; 82746; 83036; 83735; 84443; 85025; 86803